=== PATIENT | male | born 1970 | race Caucasian/White ===

== ENCOUNTER 2021-12-24 11:21 | Emergency (ER) | payer OTHER, MEDICAID, SELFPAY ==
[2021-12-24 11:39] VITALS: BP 155/87; PULSE 99; RESP 16; O2SAT 99; BMI 25.4
--- NOTE | 2021-12-24 12:44 | DI.CT.S_ITS ---
PROCEDURE: CT ORBIT BI W CON INDICATIONS: left eye infection TECHNIQUE: After the administration of intravenous contrast, 2.5 mm axial images acquired through the orbits, with coronal and sagittal reformats. For radiation dose reduction, the following was used: automated exposure control, adjustment of mA and/or kV according to patient size. COMPARISON: None. FINDINGS: Image quality: Excellent. Orbits: Generalized left periorbital soft tissue swelling can be seen, with generalized enhancement. No focal fluid collections are seen to suggest abscess. No postseptal involvement can be seen. Globes are symmetrical. The optic nerves are normal in size and enhancement. No retrobulbar masses or fat abnormalities. The extra-ocular muscles are normal and symmetrical in appearance. Lacrimal glands are normal. Optic chiasm is normal. Intracranial: The pituitary gland is normal, without sellar or suprasellar masses. Visualized cerebral hemispheres, brainstem, and spinal cord appear normal. Bones and sinuses: Visualized calvarium and facial bones appear intact. Visualized sinuses and mastoids are clear. The ostiomeatal complexes are constitutionally narrowed, with bilateral Zoran cells. There is moderate leftward nasal septal deviation. IMPRESSION: Left periorbital cellulitis, without soft tissue abscess seen. No post septal involvement is detected. Incidental note is made of: Constitutionally narrowed ostiomeatal complexes Moderate leftward nasal septal deviation Dictated by: Theo Browne M.D. on 12/24/2021 at 12:41 Approved by: Theo Browne M.D. on 12/24/2021 at 12:44
[2021-12-24] MEDS: OXYCODONE/ACETAMINOPHEN 5/325 TABLET 1 TAB PO (13:09)
[2021-12-24 13:11] LABS: Add Manual Diff / Slide Review NO; Basophils Absolute Auto 100 /uL (0-100); Basophils Percent Auto 0.7 % (0-2); Eosinophils Absolute Auto 200 /uL (0-450); Eosinophils Percent Auto 1.5 % (2-4); Hematocrit 46.1 % (41-53); Hemoglobin 15.6 g/dL (13.5-17.5); Lymphocytes Absolute Auto 1100 /uL (1100-4500); Mean Corpuscular HGB Conc 33.9 % (30-36); Mean Corpuscular Hemoglobin 29.6 PG (26-34); Mean Corpuscular Volume 87.2 fL (80-100); Monocytes Absolute Auto 700 /uL (0-900); Neutrophils Absolute Auto 8500 /uL (1500-7000); Neutrophils Percent Auto 80.8 % (50-75); Platelet Count 223 X10^3/uL (150-400); Red Blood Cell Count 5.28 X10^6/uL (4.5-5.9); Red Cell Distribution Width 13.7 % (11.6-14.8); White Blood Cell Count 10.5 X10^3/uL (4.5-11.0)
--- NOTE | 2021-12-24 13:11 | ED_ITS ---
HPI - Eye Problem <YONATAN Candelaria - Last Filed: 12/24/21 16:11> General Chief complaint: Eye Problems Stated complaint: left eye swollen at [facility] yesterday, now worse Time Seen by Provider: 12/24/21 12:34 Source: patient Mode of arrival: Ambulatory History of Present Illness HPI Narrative: This is a 51-year-old male who presents to the emergency department with left eye redness, swelling, white discharge with complaint left arm pain and worsening infection. Patient states that yesterday he woke with left eye irritation, mild swelling, he went to a walk-in clinic, was prescribed erythromycin ointment, was using this but states that overnight it got a lot worse. He states that he has left eye pain, his eyelids are swollen shut, he is able to open them if he uses his finger but unable to open them without manual assistance. He endorses having a lot of white/yellow discharge from his left eye. He denies any eye trauma, states that he does not wear any contacts, he has not had any exposures to gonorrhea or chlamydia recently. He denies any history of skin infections or eye infections in the past. He denies being on any pain medicine, he denies taking oral antibiotics. He denies any fever, fatigue, nausea, or symptoms of illness. He denies any neck pain, states that the white part of his eye is red, he is able to move his eye but states it is painful with movement. Related Data Home Medications Medication Instructions Recorded Confirmed Viagra PO 12/23/21 12/23/21 wellbutrin PO 12/23/21 12/23/21 Previous Rx's Medication Instructions Recorded clindamycin HCl 150 mg capsule 150 mg PO TID 10 Days #30 cap 12/24/21 clindamycin HCl 300 mg capsule 300 mg PO TID 10 Days #30 cap 12/24/21 moxifloxacin 0.5 % eye drops 1 drp EYE-LEFT TID 7 Days ml 12/24/21 oxycodone-acetaminophen 2.5 mg-325 2 tab PO Q8H PRN 5 Days #20 tab 12/24/21 mg tablet Allergies Allergy/AdvReac Type Severity Reaction Status Date / Time No Known Drug Allergies Allergy Unverified 12/23/21 12:27 Review of Systems <YONATAN Candelaria - Last Filed: 12/24/21 16:11> Review of Systems Narrative: General: denies fever, chills, malaise, sweats, fatigue Head/Neck: denies headache, neck pain, dizziness Eyes: denies visual changes, endorses left eye pain, redness and swelling to upper and lower eyelids, swelling within orbital rim, denies any swelling adjacent to his nose, denies any other facial pain or swelling, endorses scleral injection Cardio: denies chest pain, palpitations, edema Respiratory: denies dyspnea, cough, orthopnea GI: denies abdominal pain, nausea, vomiting, or diarrhea MSK: denies joint pain, muscle weakness Skin: denies rash, itching, skin lesions or other, denies any recent dental infection or work, or any recent facial trauma/surgery. Neuro: denies numbness, tingling Patient History <KENTRELL CandelariaP - Last Filed: 12/24/21 16:11> Social History Smoking Status: Current every day smoker Smoking Status: Current every day smoker tobacco type: cigarettes alcohol intake frequency: holidays/special occasions only Substance Use Type: marijuana Exam <KENTRELL CandelariaP - Last Filed: 12/24/21 16:11> Narrative Exam Narrative: Independently reviewed vitals signs and nursing notes. General: cooperative, comfortable, in no acute distress, well groomed Head: atraumatic, symmetrical facial expressions Neck: supple Eyes: Pupils equal round and reactive, EOMI, left eye with beefy red scleral injection, large amount of white/yellow discharge coming from the conjunctivae, edematous conjunctiva, edema to the upper and lower eyelids with erythema, isolated to the orbital rim, no pain with palpation outside of the orbital rim, no EOM deficit on the left, patient endorses pain with eye movement, vision intact through all lang, gram stain and culture obtained Fluorescein exam: Without any staining over cornea, no signs of corneal abrasion or ulceration Nose: nares patent, no rhinorrhea Mouth/Throat: moist mucus membranes Cardiovascular: regular rate and rhythm, no peripheral edema, warm extremities Respiratory: normal effort, able to speak in complete sentences, no audible wheezing, stridor, or rales. No retractions or tachypnea. MSK: moves all extremities, neurovascularly intact, no weakness, normal tone Skin: brisk capillary refill, no rash, erythema and edema to left upper and lower eyelids, cellulitic appearing, only within orbital rim, no facial swelling or erythema, no tenderness along nares Neuro: normal speech and cognition, A&O x3 Psych: mental status is grossly normal, congruent mood, normal affect, pleasant and cooperative Initial Vital Signs Initial Vital Signs: Vital Signs Pulse Rate 99 H 12/24/21 11:39 Respiratory Rate 16 12/24/21 11:39 Blood Pressure 155/87 H 12/24/21 11:39 Pulse Oximetry 99 12/24/21 11:39 <Ronnie Mars DO - Last Filed: 12/24/21 16:42> Initial Vital Signs Initial Vital Signs: Vital Signs Pulse Rate 99 H 12/24/21 11:39 Respiratory Rate 16 12/24/21 11:39 Blood Pressure 155/87 H 12/24/21 11:39 Pulse Oximetry 99 12/24/21 11:39 Course <YONATAN Candelaria - Last Filed: 12/24/21 16:11> Orders Ordered: ED Orders 12/24/21 12:40 Eye culture Stat 12/24/21 12:44 CT orbit BI w con Stat Blood Culture Stat 12/24/21 13:04 CBC Auto Diff [Complete Blood Count AUTO DIFF] Stat CMP [Comprehensive Metabolic Panel] Stat Discontinued Medications Fluorescein Sodium (Fluorescein 1 Mg Strip) 1 mg EYE-LEFT NOW ONE Stop: 12/24/21 13:16 Last Admin: 12/24/21 13:28 Dose: 1 mg Documented by: SUSU Clindamycin Phosphate (Cleocin) 600 mg in 50 mls @ 50 mls/hr IV NOW ONE Stop: 12/24/21 14:29 Last Infusion: 12/24/21 14:42 Dose: 0 mls/hr Documented by: Admin: 12/24/21 13:38 Dose: 50 mls/hr Documented by: SUSU Oxycodone/Acetaminophen (Oxycodone/Acetaminophen 5/325 Tablet) 1 tab PO NOW ONE Stop: 12/24/21 12:53 Last Admin: 12/24/21 13:09 Dose: 1 tab Documented by: SUSU Proparacaine HCl (Proparacaine 0.5% Ophth Nicole) 1 drops EYE-LEFT NOW ONE Stop: 12/24/21 13:16 Last Admin: 12/24/21 13:25 Dose: 1 drop Documented by: SUSU Vital Signs Vital signs: Vital Signs - 8 hr 12/24/21 11:39 12/24/21 14:30 Temperature 98 F Pulse Rate 99 H 78 Respiratory Rate 16 18 Blood Pressure 155/87 H 160/90 H Pulse Oximetry 99 98 <Ronnie Mars DO - Last Filed: 12/24/21 16:42> Orders Ordered: ED Orders 12/24/21 12:40 Eye culture Stat 12/24/21 12:44 CT orbit BI w con Stat Blood Culture Stat 12/24/21 13:04 CBC Auto Diff [Complete Blood Count AUTO DIFF] Stat CMP [Comprehensive Metabolic Panel] Stat Discontinued Medications Fluorescein Sodium (Fluorescein 1 Mg Strip) 1 mg EYE-LEFT NOW ONE Stop: 12/24/21 13:16 Last Admin: 12/24/21 13:28 Dose: 1 mg Documented by: SUSU Clindamycin Phosphate (Cleocin) 600 mg in 50 mls @ 50 mls/hr IV NOW ONE Stop: 12/24/21 14:29 Last Infusion: 12/24/21 14:42 Dose: 0 mls/hr Documented by: Admin: 12/24/21 13:38 Dose: 50 mls/hr Documented by: SUSU Oxycodone/Acetaminophen (Oxycodone/Acetaminophen 5/325 Tablet) 1 tab PO NOW ONE Stop: 12/24/21 12:53 Last Admin: 12/24/21 13:09 Dose: 1 tab Documented by: SUSU Proparacaine HCl (Proparacaine 0.5% Ophth Nicole) 1 drops EYE-LEFT NOW ONE Stop: 12/24/21 13:16 Last Admin: 12/24/21 13:25 Dose: 1 drop Documented by: SUSU Vital Signs Vital signs: Vital Signs - 8 hr 12/24/21 11:39 12/24/21 14:30 Temperature 98 F Pulse Rate 99 H 78 Respiratory Rate 16 18 Blood Pressure 155/87 H 160/90 H Pulse Oximetry 99 98 MDM - Eye Problem <YONATAN Candelaria - Last Filed: 12/24/21 16:11> Lab Data Result diagrams: 12/24/21 13:04 12/24/21 13:04 Labs: Lab Results 12/24/21 12/24/21 Range/Units 13:04 13:04 WBC 10.5 (4.5-11.0) X10^3/uL RBC 5.28 (4.5-5.9) X10^6/uL Hgb 15.6 (13.5-17.5) g/dL Hct 46.1 (41-53) % MCV 87.2 (80-100) fL MCH 29.6 (26-34) PG MCHC 33.9 (30-36) % RDW 13.7 (11.6-14.8) % Plt Count 223 (150-400) X10^3/uL Neut % (Auto) 80.8 H (50-75) % Lymph % (Auto) 10.0 L (25-40) % [place] % (Auto) 7.0 (3-14) % Eos % (Auto) 1.5 L (2-4) % Baso % (Auto) 0.7 (0-2) % Neut # (Auto) 8500 H (0557-8565) /uL Lymph # (Auto) 1100 (5807-6252) /uL [place] # (Auto) 700 (0-900) /uL Eos # (Auto) 200 (0-450) /uL Baso # (Auto) 100 (0-100) /uL Sodium 140 (137-145) mmol/L Potassium 4.1 (3.4-5.1) mmol/L Chloride 106 (98-107) mmol/L Carbon Dioxide 30 (22-32) mmol/L BUN 21 H (9-20) mg/dL Creatinine 0.95 (0.66-1.25) mg/dL Estimated GFR > 60 (>60) mL/min BUN/Creatinine Ratio 22.1 H (6-22) Glucose 109 H (70-100) mg/dL Calcium 9.1 (8.4-10.2) mg/dL Total Bilirubin 0.3 (0.2-1.3) mg/dL AST 28 (17-59) IU/L ALT 25 (<50) IU/L Alkaline Phosphatase 67 (38-126) U/L Total Protein 7.3 (6.3-8.2) g/dL Albumin 4.2 (3.5-5.0) g/dL Globulin 3.1 (1.7-4.1) g/dL Albumin/Globulin Ratio 1.4 (1.0-2.8) Imaging Data CT scan - head: Radiologist's Impression: PROCEDURE:? CT ORBIT BI W CON ? INDICATIONS:? left eye infection ? TECHNIQUE:? After the administration of intravenous contrast, 2.5 mm axial images acquired through the orbits, with coronal and sagittal reformats.? For radiation dose reduction, the following was used:? automated exposure control, adjustment of mA and/or kV according to patient size.? ? COMPARISON:? None. ? FINDINGS:? Image quality:? Excellent.? ? Orbits:? Generalized left periorbital soft tissue swelling can be seen, with generalized enhancement.? No focal fluid collections are seen to suggest abscess.? No postseptal involvement can be seen. ? Globes are symmetrical.? The optic nerves are normal in size and enhancement.? No retrobulbar masses or fat abnormalities.? The extra-ocular muscles are normal and symmetrical in appearance.? Lacrimal glands are normal.? Optic chiasm is n ormal.? ? Intracranial:? The pituitary gland is normal, without sellar or suprasellar masses.? Visualized cerebral hemispheres, brainstem, and spinal cord appear normal.? ? Bones and sinuses:? Visualized calvarium and facial bones appear intact.? Visualized sinuses and mastoids are clear.? The ostiomeatal complexes are constitutionally narrowed, with bilateral Zoran cells.? There is moderate leftward nasal septal deviation. ? ? ? IMPRESSION:? Left periorbital cellulitis, without soft tissue abscess seen. ? No post septal involvement is detected. ? ? ? Incidental note is made of: Constitutionally narrowed ostiomeatal complexes Moderate leftward nasal septal deviation ? Dictated by: Theo Browne M.D. on 12/24/2021 at 12:41 ? ? Approved by: Theo Browne M.D. on 12/24/2021 at 12:44 ? MDM Narrative Medical decision making narrative: This is a 51-year-old male without significant medical history who presents to the emergency department with left eyelid edema and erythema with a moderate amount of white discharge. Patient was seen in the walk-in clinic yesterday prescribed erythromycin ointment, he states he woke up with some left eye irritation yesterday, denies any foreign body or possibility of so. 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 Patient denies any other illness symptoms, denies fever, weakness, states that the swelling and redness of his left eye got significantly worse overnight and he was getting the ointment in his eye per his prescription and off times yesterday. He was unable to open his left eye without manual assistance, his sclera was beefy red he had eye pain with eye mov ement. Fluorescein exam did not show any corneal abrasion, he does have chemosis. Culture and Gram stain obtained, gram stain shows moderate wbc's without organism. CT and lab work obtained for concern about orbital cellulitis versus preseptal cellulitis. CT orbits show left cellulitis without soft tissue abscess, no postseptal involvement detected. Patient did not have any vision changes, he was treated with 600 mg of IV clindamycin, prescribed 450 mg of clindamycin t.i.d. x10 days. He was given a referral to Dr. Nita herrera to call and schedule an appointment for follow-up. Patient understands to return to the emergency department for any new worsening symptoms, he did not a toxic appearance, no leukocytosis but he does have a left shift, all other lab findings without significance. Patient is appropriate and amenable to discharge home. Vital signs are stable on repeat examination is unremarkable. Patient has been informed of results. Patient has been given strict return to ER precautions for any new or worsening symptoms. Patient understands to follow up closely with outpatient providers as instructed. Patient understands plan and agrees to discharge home. All questions and concerns answered at this time. <Ronnie Mars, - Last Filed: 12/24/21 16:42> Lab Data Labs: Lab Results 12/24/21 12/24/21 Range/Units 13:04 13:04 WBC 10.5 (4.5-11.0) X10^3/uL RBC 5.28 (4.5-5.9) X10^6/uL Hgb 15.6 (13.5-17.5) g/dL Hct 46.1 (41-53) % MCV 87.2 (80-100) fL MCH 29.6 (26-34) PG MCHC 33.9 (30-36) % RDW 13.7 (11.6-14.8) % Plt Count 223 (150-400) X10^3/uL Neut % (Auto) 80.8 H (50-75) % Lymph % (Auto) 10.0 L (25-40) % [place] % (Auto) 7.0 (3-14) % Eos % (Auto) 1.5 L (2-4) % Baso % (Auto) 0.7 (0-2) % Neut # (Auto) 8500 H (5118-3704) /uL Lymph # (Auto) 1100 (4037-2853) /uL [place] # (Auto) 700 (0-900) /uL Eos # (Auto) 200 (0-450) /uL Baso # (Auto) 100 (0-100) /uL Sodium 140 (137-145) mmol/L Potassium 4.1 (3.4-5.1) mmol/L Chloride 106 (98-107) mmol/L Carbon Dioxide 30 (22-32) mmol/L BUN 21 H (9-20) mg/dL Creatinine 0.95 (0.66-1.25) mg/dL Estimated GFR > 60 (>60) mL/min BUN/Creatinine Ratio 22.1 H (6-22) Glucose 109 H (70-100) mg/dL Calcium 9.1 (8.4-10.2) mg/dL Total Bilirubin 0.3 (0.2-1.3) mg/dL AST 28 (17-59) IU/L ALT 25 (<50) IU/L Alkaline Phosphatase 67 (38-126) U/L Total Protein 7.3 (6.3-8.2) g/dL Albumin 4.2 (3.5-5.0) g/dL Globulin 3.1 (1.7-4.1) g/dL Albumin/Globulin Ratio 1.4 (1.0-2.8) Discharge Plan Departure Patient Disposition: Home Clinical Impression: Periorbital cellulitis of left eye Instructions: Orbital Cellulitis Activity Restrictions/Additional Instructions: *You have been diagnosed with periorbital cellulitis. This is an infection of the tissue around your eye including her eyelids but does not extend into the deep spaces behind her eye. Please take 450 mg of clindamycin 3 times a day for the next 10 days. It will be one 300 mg capsule and one 150 mg capsule for each dose. Please take oxycodone two tabs every 6-8 hours as needed for pain. You may take ibuprofen in addition to this if your stomach can handle it. Please see if moxifloxacin is available at [facility] otherwise drop it off at [facility] or other pharmacy here in [facility]. Sorry about that. It is not necessary to have it because you are on this antibiotic however it might help the eye swelling start to go down sooner. You can use cool compresses, please do not use any contacts, put anything into your eye other than regular saline if you do, you may discontinue the erythromycin ointment you are able to find the moxifloxacin drops. Please try and make an appointment for follow-up with Dr. Herrera, her information as below, there is a phone number listed below this to establish care with a primary care provider if you also need one of those. It was nice to meet you, the luck with your eye. *What to do: *Please continue to take your regular medications as directed. [x ] New medication prescriptions sent to your pharmacy: [ [facility]] [ ] New medication written as a paper prescription [ ] No new medications given *Please follow up with your primary care provider in 2-3 days, call for an appointment. Let them know you were seen in the Emergency Department and that we asked that you be seen for follow-up. We will electronically transmit a record of today's note if your PCP is in our system *If you do not have a primary care provider please contact [phone] to establish care with one of the [facility] primary care providers. *Return to Emergency Department if you should have any new, worsening or concerning symptoms, such as [fever greater than 101F, chills, worsening pain, persistent vomiting or other bothersome symptoms] Prescriptions: New clindamycin HCl 300 mg capsule 300 mg PO TID 10 Days Qty: 30 0RF clindamycin HCl 150 mg capsule 150 mg PO TID 10 Days Qty: 30 0RF oxycodone-acetaminophen 2.5-325 mg tablet 2 tab PO Q8H PRN (Reason: pain) 5 Days Qty: 20 0RF moxifloxacin 0.5 % drops 1 drp EYE-LEFT TID 7 Days 0RF Discontinued erythromycin 5 mg/gram (0.5 %) ointment 0.5 inch EYE-LEFT QID 5 Days Qty: 1 0RF No Action wellbutrin PO 0RF Viagra PO 0RF Referrals: Nita Herrera MD [Physician] - As soon as possible Miscellaneous,MD Jared [Primary Care Provider] - Visit Report Forms: Patient Portal/API <Ronnie Mars DO - Last Filed: 12/24/21 16:42> [facility] Dr Mars Co-Sign Statement: I was available for consultation during this patient's emergency department visit. This chart is signed by myself for administrative purposes only. I did not have direct contact with this patient during this visit. They were seen independently by the [facility].
[2021-12-24] MEDS: PROPARACAINE 0.5% OPHTH SOL 1 DROPS EYE-LEFT (13:25)
[2021-12-24 13:28] LABS: Alanine Aminotransferase 25 IU/L (<50); Albumin 4.2 g/dL (3.5-5.0); Albumin Globulin Ratio 1.4 (1.0-2.8); Alkaline Phosphatase 67 U/L (38-126); Aspartate Aminotransferase 28 IU/L (17-59); BUN Creatinine Ratio 22.1 (6-22); Bilirubin Total 0.3 mg/dL (0.2-1.3); Blood Urea Nitrogen 21 mg/dL (9-20); Calcium 9.1 mg/dL (8.4-10.2); Carbon Dioxide 30 mmol/L (22-32); Chloride 106 mmol/L (98-107); Estimated Glomerular Filt Rate > 60 mL/min (>60); Globulin 3.1 g/dL (1.7-4.1); Glucose 109 mg/dL (70-100); HEMOLYSIS < 15 (0-50); Potassium 4.1 mmol/L (3.4-5.1); Sodium 140 mmol/L (137-145); Total Protein 7.3 g/dL (6.3-8.2)
[2021-12-24] MEDS: FLUORESCEIN 1 MG STRIP EYE-LEFT (13:28)
[2021-12-24] MEDS: CLINDAMYCIN 600 MG/50 ML PIGGYBACK 50 MG IV (13:38)
[2021-12-24 14:30] VITALS: BP 160/90; PULSE 78; RESP 18; TEMP 36.6; O2SAT 98
== END 2021-12-24 14:35 | disposition home or self-care (01) ==
PROVIDERS: Emergency Provider Nurse Practitioner Critical Care Medicine
DX: L03.213 Periorbital cellulitis (principal)
CPT/HCPCS: 36415; 70481; 80053; 85025; 87040; 87070; 87077; 87205; 96365; 99284; Q9967

== ENCOUNTER 2021-12-27 20:21 | Emergency (ER) | payer OTHER, MEDICAID, SELFPAY ==
[2021-12-27 21:00] VITALS: BP 162/90; PULSE 87; RESP 18; TEMP 36.1; O2SAT 98; BMI 25.4
--- NOTE | 2021-12-27 21:17 | ED_ITS ---
HPI - Eye Problem General Chief complaint: Eye Problems Stated complaint: LEFT EYE INFECTION Time Seen by Provider: 12/27/21 21:05 Source: patient Mode of arrival: Ambulatory History of Present Illness HPI Narrative: 51-year-old male smoker with noncontributory medical history returns due to a call back based on cultures. He had been seen and evaluated a few days ago with a chief complaint of left eye discharge along with pain, redness and swelling of his upper and lower lid. He had an extensive workup including labs and even a CT of the orbit along with cultures that suggested a periorbital cellulitis. He was placed on oral antibiotics and drops for typical coverage. He denies any visual change once his lid is pried open but states it is blurry without external effort. He denies systemic findings such as fever, chills nor nausea or vomiting. He has been taking the medications as directed. Culture came back suggesting dysuria gonorrhea and he was encouraged to come back as he would need an alternate antibiotic regimen Related Data Home Medications Medication Instructions Recorded Confirmed Viagra PO 12/23/21 12/23/21 wellbutrin PO 12/23/21 12/23/21 Previous Rx's Medication Instructions Recorded clindamycin HCl 150 mg capsule 150 mg PO TID 10 Days #30 cap 12/24/21 clindamycin HCl 300 mg capsule 300 mg PO TID 10 Days #30 cap 12/24/21 moxifloxacin 0.5 % eye drops 1 drp EYE-LEFT TID 7 Days ml 12/24/21 oxycodone-acetaminophen 2.5 mg-325 2 tab PO Q8H PRN 5 Days #20 tab 12/24/21 mg tablet Allergies Allergy/AdvReac Type Severity Reaction Status Date / Time No Known Drug Allergies Allergy Unverified 12/23/21 12:27 Review of Systems Review of Systems Narrative: GENERAL: See HPI HEENT: See HPI RESPIRATORY: Denies dyspnea, cough, wheezing, hemoptysis, sputum. CARDIOVASCULAR: Denies chest pain, palpitations, orthopnea, edema, GASTROINTESTINAL: Denies nausea, vomiting, abdominal pain, diarrhea, constipation, melena. : Denies dysuria, frequency, incontinence, hematuria, urinary retention. MUSCULOSKELETAL: denies weakness, joint pain, or bony pain SKIN: See HPI NEUROLOGIC: Denies weakness, headache, numbness, change in speech, confusion, seizures, incoordination. PSYCHIATRIC: No concerning psychosocial issues. 12 point review of systems is negative except for those stated above Patient History Social History Smoking Status: Current every day smoker Smoking Status: Current every day smoker tobacco type: cigarettes alcohol intake frequency: holidays/special occasions only Substance Use Type: marijuana Exam Narrative Exam Narrative: GEN: AOx3 and in mild distress EYES: Minimal upper and lower erythema and edema consistent with known preseptal cellulitis, no induration or fluctuance to suggest abscess. When lids retracted there is moderate scleral injection and purulent discharge, patient's vision is unaffected. CHEST: Lungs are clear to auscultation bilaterally and free of wheezes, rales, or rhonchi. Heart rate is regular rhythm, there are no murmurs, clicks, rubs, or gallops. There is no chest wall tenderness. ABD: Abdomen is soft and nontender. There is no guarding or rebound. Bowel sounds are normal in all 4 quadrants. There is no mass or organomegaly. EXT: Full painless ROM of all extremities with no loss of sensation or strength. SKIN: Warm, pink, and dry. No erythema or rash Initial Vital Signs Initial Vital Signs: Vital Signs Temperature 97 F L 12/27/21 21:00 Pulse Rate 87 12/27/21 21:00 Respiratory Rate 18 12/27/21 21:00 Blood Pressure 162/90 H 12/27/21 21:00 Pulse Oximetry 98 12/27/21 21:00 Course Orders Ordered: Discontinued Medications Hydrocodone Bitart/Acetaminophen (Hydrocodone/Acet 5/325 Prepack) 1 bottle [facility] ONE Stop: 12/27/21 21:25 Last Admin: 12/27/21 21:34 Dose: 1 bottle Documented by: LETITIA Ceftriaxone Sodium (Ceftriaxone 2,000 Mg Vial) 1,000 mg IM NOW ONE Stop: 12/27/21 21:21 Last Admin: 12/27/21 21:33 Dose: 1,000 mg Documented by: LETITIA Vital Signs Vital signs: Vital Signs - 8 hr 12/27/21 21:00 Temperature 97 F L Pulse Rate 87 Respiratory Rate 18 Blood Pressure 162/90 H Pulse Oximetry 98 MDM - Eye Problem MDM Narrative Medical decision making narrative: Patient called back due to culture noting Neisseria gonorrhea conjunctivitis, he was given Rocephin 1 g IM and encouraged to continue the other antibiotics as previously described. He was given contact information for local ophthalmology and encouraged to follow up closely. Return precautions given and questions answered to his apparent satisfaction Discharge Plan Departure Patient Disposition: Home Clinical Impression: Periorbital cellulitis of left eye, Gonorrhea with local complication Activity Restrictions/Additional Instructions: *You have been diagnosed with [left eye periorbital cellulitis with gonococcal infection. As we discussed the only change needs to be addition of the shot your given today, please continue taking the drops and other medications you have been given on the prior visit *What to do: *Please continue to take your regular medications as directed. [ ] New medication prescriptions sent to your pharmacy: [ ] [ ] New medication written as a paper prescription [ ] No new medications given *Please follow up with Dr. Herrera or Dr. Johnson at [facility], call for an appointment. Let them know you were seen in the Emergency Department and that we ask that you be seen in follow up. We will electronically transmit a record of today's note *Return to Emergency Department if you should have any new, worsening or concerning symptoms, such as [fever greater than 101 F, shaking chills, worsening pain, persistent vomiting or other bothersome symptoms] Prescriptions: No Action wellbutrin PO 0RF Viagra PO 0RF clindamycin HCl 300 mg capsule 300 mg PO TID 10 Days Qty: 30 0RF clindamycin HCl 150 mg capsule 150 mg PO TID 10 Days Qty: 30 0RF oxycodone-acetaminophen 2.5-325 mg tablet 2 tab PO Q8H PRN (Reason: pain) 5 Days Qty: 20 0RF moxifloxacin 0.5 % drops 1 drp EYE-LEFT TID 7 Days 0RF Referrals: Nita Herrera MD [Physician] - Miscellaneous,MD Jared [Primary Care Provider] - Visit Report Forms: Patient Portal/API
[2021-12-27] MEDS: cefTRIAXone 2,000 MG VIAL 1000 MG IM (21:33)
[2021-12-27] MEDS: HYDROCODONE/ACET 5/325 PREPACK 1 BOTTLE MISC (21:34)
== END 2021-12-27 21:57 | disposition home or self-care (01) ==
PROVIDERS: Emergency Provider Emergency Medicine
DX: L03.213 Periorbital cellulitis (principal); A54 Gonococcal infection
CPT/HCPCS: 96372; 99283; J0696

== ENCOUNTER 2022-05-06 13:13 | Emergency (ER) | payer OTHER, MEDICAID, SELFPAY ==
[2022-05-06 13:18] VITALS: BP 155/93; PULSE 92; RESP 16; TEMP 36.7; O2SAT 100; BMI 25.7
[2022-05-06 13:31] VITALS: PULSE 92; O2SAT 100
[2022-05-06 13:32] VITALS: BP 164/103; PULSE 92; O2SAT 100
[2022-05-06 13:33] VITALS: BP 153/97; PULSE 92; O2SAT 100
--- NOTE | 2022-05-06 13:57 | ED_ITS ---
HPI - Back Pain/Injury General Chief Complaint: Back Pain/Injury Stated Complaint: Low back pain, hx of kidney stones Time Seen by Provider: 05/06/22 13:49 Source: patient Mode of arrival: Ambulatory History of Present Illness HPI Narrative: Patient is a 51-year-old male here for evaluation of left-sided back pain/left flank pain. He states the symptoms started 2 days ago. Fairly sudden onset. No fevers. No urinary symptoms. No change in bowel habits. He has had a kidney stone in the past and this feels similar to that. No skin rashes. Did take some Tylenol and ibuprofen prior to arrival which has improved his symptoms somewhat. Pain is in a band in his lower back and does get somewhat worse with movement. Not worse with palpation. Related Data Home Medications Medication Instructions Recorded Confirmed Viagra PO 12/23/21 12/23/21 wellbutrin PO 12/23/21 12/23/21 Previous Rx's Medication Instructions Recorded cyclobenzaprine 10 mg tablet 10 mg PO TID PRN muscle spasm #12 05/06/22 tabs hydrocodone 5 mg-acetaminophen 325 1 tab PO Q4-6H PRN pain #10 tabs 05/06/22 mg tablet Allergies Allergy/AdvReac Type Severity Reaction Status Date / Time No Known Drug Allergies Allergy Unverified 12/23/21 12:27 Review of Systems Review of Systems ROS Unobtainable: All systems reviewed & are unremarkable except as noted in HPI and below Patient History Social History Smoking Status: Current every day smoker Smoking Status: Current every day smoker tobacco type: cigarettes alcohol intake frequency: holidays/special occasions only Substance Use Type: marijuana Exam Initial Vital Signs Initial Vital Signs: Vital Signs Temperature 98.1 F 05/06/22 13:18 Pulse Rate 92 H 05/06/22 13:18 Respiratory Rate 16 05/06/22 13:18 Blood Pressure 155/93 H 05/06/22 13:18 Pulse Oximetry 100 05/06/22 13:18 Oxygen Delivery Method 05/06/22 13:18 HENMT Head: normal to inspection and normocephalic Resp Effort & Inspection: normal respiratory effort Cardio Rate: regular rate GI Palpation: soft, No firm, No guarding and No tender Back/Spine/Pelvis Back: No CVA tenderness Skin General: no rashes or lesions noted Neuro General: patient alert, patient awake and patient oriented x3 Extrem General: normal to inspection and capillary refill normal Psych Appearance: grossly normal and well kempt Course Orders Ordered: ED Orders 05/06/22 13:58 CT kidney ureter bladder (KUB) Stat 05/06/22 14:53 Basic Metabolic Panel Stat Complete Blood Count AUTO DIFF Stat Vital Signs Vital signs: Vital Signs - 8 hr 05/06/22 13:18 05/06/22 13:31 05/06/22 13:32 Temperature 98.1 F Pulse Rate 92 H 92 H Respiratory Rate 16 Blood Pressure 155/93 H 164/103 H Pulse Oximetry 100 100 Oxygen Delivery Method Room Air Room Air 05/06/22 13:32 05/06/22 13:33 05/06/22 13:33 Temperature Pulse Rate 92 H 92 H Respiratory Rate Blood Pressure 153/97 H Pulse Oximetry 100 100 Oxygen Delivery Method Room Air Room Air MDM - Back Pain/Injury Lab Data Attestation: I reviewed the patient's lab results. Result diagrams: 05/06/22 14:53 05/06/22 14:53 Labs: Lab Results 05/06/22 05/06/22 Range/Units 14:53 14:53 WBC 5.6 (4.5-11.0) X10^3/uL RBC 4.99 (4.5-5.9) X10^6/uL Hgb 14.9 (13.5-17.5) g/dL Hct 43.7 (41-53) % MCV 87.6 (80-100) fL MCH 29.9 (26-34) PG MCHC 34.1 (30-36) % RDW 13.3 (11.6-14.8) % Plt Count 196 (150-400) X10^3/uL Neut % (Auto) 67.1 (50-75) % Lymph % (Auto) 20.7 L (25-40) % [place] % (Auto) 9.7 (3-14) % Eos % (Auto) 1.3 L (2-4) % Baso % (Auto) 1.2 (0-2) % Neut # (Auto) 3800 (9120-6197) /uL Lymph # (Auto) 1200 (6406-0895) /uL [place]ke # (Auto) 500 (0-900) /uL Eos # (Auto) 100 (0-450) /uL Baso # (Auto) 100 (0-100) /uL Sodium 136 L (137-145) mmol/L Potassium 4.2 (3.4-5.1) mmol/L Chloride 103 (98-107) mmol/L Carbon Dioxide 24 (22-32) mmol/L BUN 15 (9-20) mg/dL Creatinine 0.87 (0.66-1.25) mg/dL Estimated GFR > 60 (>60) mL/min BUN/Creatinine Ratio 17.2 (6-22) Glucose 91 (70-100) mg/dL Calcium 8.6 (8.4-10.2) mg/dL Urine Dip Bedside Urine Glucose Negative Bedside Urine Bilirubin - Negative Bedside Urine Ketone - Negative Urine Specific [place] 1.015 Bedside Urine Occult Blood - Negative Bedside Urine Protein - Negative Bedside Urine Urobilinogen - Negative Bedside Urine Nitrite - Negative Bedside Urine Leukocytes - Negative Esterase Imaging Data CT scan - abdomen/pelvis: Radiologist's Impression: [address] [id number] [address] Scan Report Signed Patient: Mike Pereira MR#: [id number] : 1970 Acct:[id number] Age/Sex: 51 / M Date of Service: 05/06/22 Loc: Accession Number: [id number] ?? Procedure: CT kidney ureter bladder (KUB) Ordering Provider: Ronnie Mars D.O. PROCEDURE:? CT KIDNEY URETER BLADDER (KUB) ? INDICATIONS:? Eval for left-sided stone ? TECHNIQUE:? Axial sections were acquired from the lung bases to the pubic symphysis.? Coronal and sagittal reformats were performed.? For radiation dose reduction, the following was used: ?automated exposure control, adjustment of mA and/or kV according to patient size.? ? COMPARISON:? None. ? FINDINGS:? Image quality:? Good ? Lower chest:? Suspected basal scarring/atelectasis.? Partially visualized electrode lead in the heart.? Nonspecific mild distal esophageal wall thickening. ? Solid organs:? Probable focal fat subjacent to the anterior hepatic capsule.? Solid organs are not well evaluated on noncontrast imaging.? Subcentimeter lesions are too small to characterize.? Gallbladder is unremarkable.? No biliary ductal dilation.? Pancreas, spleen, and adrenals are unremarkable.? ? Normal right kidney and ureter.? 1 millimeter left lower pole nonobstructing calculus.? No left hydronephrosis.? No bladder stone.? ? Vessels and lymph nodes:? No abdominal aortic aneurysm.? Prominent, non-specific lymph nodes are present that are not enlarged by size criteria. ? Bowel and peritoneum:? Moderate colorectal stool burden.? No pathologic ascites. ? Body wall:? Tiny fat containing umbilical hernia. ? Pelvis:? Mildly enlarged prostate with calcifications, not well evaluated.? Bladder is unremarkable. ? Bones:? No acute or suspicious osseous abnormality. ? ? ? IMPRESSION:? No hydronephrosis bilaterally.? There is a 1 millimeter left lower pole nonobstructing calculus.? No significant inflammatory changes in the genitourinary system.? No radiopaque bladder stone.? Other incidental findings as noted above. ? Dictated by: Clarke Elliott M.D. on 05/06/2022 at 14:29 ? ? Approved by: Clarke Elliott M.D. on 05/06/2022 at 14:34? MDM Narrative Medical decision making narrative: CT scan shows no signs of kidney stone. His labs are unremarkable. No other surgical pathology. Urinalysis not consistent with urinary tract infection or pyelonephritis. I do suspect musculoskeletal. Will provide symptom treatment. I did discuss this with him. He was given return precautions follow-up instructions. He expressed understanding and agreement. Discharge Plan Departure Patient Disposition: Home Clinical Impression: Strain of lumbar region Instructions: DI for Low Back Pain Activity Restrictions/Additional Instructions: Recommend that you take all of your medications as directed. Contact your primary care doctor for follow-up. Return to the emergency department for any new or worsening symptoms. Prescriptions: New cyclobenzaprine 10 mg tablet 10 mg PO TID PRN (Reason: muscle spasm) Qty: 12 0RF hydrocodone-acetaminophen 5-325 mg tablet 1 tab PO Q4-6H PRN (Reason: pain) Qty: 10 0RF No Action wellbutrin PO Viagra PO
--- NOTE | 2022-05-06 13:58 | DI.CT.S_ITS ---
PROCEDURE: CT KIDNEY URETER BLADDER (KUB) INDICATIONS: Eval for left-sided stone TECHNIQUE: Axial sections were acquired from the lung bases to the pubic symphysis. Coronal and sagittal reformats were performed. For radiation dose reduction, the following was used: automated exposure control, adjustment of mA and/or kV according to patient size. COMPARISON: None. FINDINGS: Image quality: Good Lower chest: Suspected basal scarring/atelectasis. Partially visualized electrode lead in the heart. Nonspecific mild distal esophageal wall thickening. Solid organs: Probable focal fat subjacent to the anterior hepatic capsule. Solid organs are not well evaluated on noncontrast imaging. Subcentimeter lesions are too small to characterize. Gallbladder is unremarkable. No biliary ductal dilation. Pancreas, spleen, and adrenals are unremarkable. Normal right kidney and ureter. 1 millimeter left lower pole nonobstructing calculus. No left hydronephrosis. No bladder stone. Vessels and lymph nodes: No abdominal aortic aneurysm. Prominent, non-specific lymph nodes are present that are not enlarged by size criteria. Bowel and peritoneum: Moderate colorectal stool burden. No pathologic ascites. Body wall: Tiny fat containing umbilical hernia. Pelvis: Mildly enlarged prostate with calcifications, not well evaluated. Bladder is unremarkable. Bones: No acute or suspicious osseous abnormality. IMPRESSION: No hydronephrosis bilaterally. There is a 1 millimeter left lower pole nonobstructing calculus. No significant inflammatory changes in the genitourinary system. No radiopaque bladder stone. Other incidental findings as noted above. Dictated by: Clarke Elliott M.D. on 05/06/2022 at 14:29 Approved by: Clarke Elliott M.D. on 05/06/2022 at 14:34
[2022-05-06 15:11] LABS: Add Manual Diff / Slide Review NO; Basophils Absolute Auto 100 /uL (0-100); Basophils Percent Auto 1.2 % (0-2); Eosinophils Absolute Auto 100 /uL (0-450); Eosinophils Percent Auto 1.3 % (2-4); Hematocrit 43.7 % (41-53); Hemoglobin 14.9 g/dL (13.5-17.5); Lymphocytes Absolute Auto 1200 /uL (1100-4500); Lymphocytes Percent Auto 20.7 % (25-40); Mean Corpuscular HGB Conc 34.1 % (30-36); Mean Corpuscular Hemoglobin 29.9 PG (26-34); Mean Corpuscular Volume 87.6 fL (80-100); Monocytes Absolute Auto 500 /uL (0-900); Monocytes Percent Auto 9.7 % (3-14); Neutrophils Absolute Auto 3800 /uL (1500-7000); Neutrophils Percent Auto 67.1 % (50-75); Platelet Count 196 X10^3/uL (150-400); Red Blood Cell Count 4.99 X10^6/uL (4.5-5.9); Red Cell Distribution Width 13.3 % (11.6-14.8); White Blood Cell Count 5.6 X10^3/uL (4.5-11.0)
[2022-05-06 15:14] LABS: BUN Creatinine Ratio 17.2 (6-22); Blood Urea Nitrogen 15 mg/dL (9-20); Calcium 8.6 mg/dL (8.4-10.2); Carbon Dioxide 24 mmol/L (22-32); Chloride 103 mmol/L (98-107); Estimated Glomerular Filt Rate > 60 mL/min (>60); Glucose 91 mg/dL (70-100); HEMOLYSIS 17 (0-50); Potassium 4.2 mmol/L (3.4-5.1); Sodium 136 mmol/L (137-145)
[2022-05-06] MEDS: HYDROCODONE/ACET 5/325 TABLET 1 TAB PO (16:28)
== END 2022-05-06 16:30 | disposition home or self-care (01) ==
PROVIDERS: Emergency Provider Emergency Medicine
DX: S39.012A Strain of muscle, fascia and tendon of lower back, initial encounter (principal)
CPT/HCPCS: 74176; 80048; 81003; 85025; 99284

== ENCOUNTER 2022-07-14 17:04 | Emergency (ER) | payer OTHER, MEDICAID, SELFPAY ==
[2022-07-14 17:09] VITALS: BP 139/89; PULSE 105; RESP 15; TEMP 37; O2SAT 97; BMI 24.4
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
[2022-07-14 17:53] VITALS: BP 141/84; PULSE 98; O2SAT 98
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
[2022-07-14 19:40] VITALS: BP 118/64; PULSE 62; RESP 14; TEMP 36.3; O2SAT 99
== END 2022-07-14 19:40 | disposition home or self-care (01) ==
PROVIDERS: Emergency Provider Registered Nurse
DX: S43.109A Unspecified dislocation of unspecified acromioclavicular joint, initial encounter (principal); V19.3XXA Pedal cyclist (driver) (passenger) injured in unspecified nontraffic accident, initial encounter
CPT/HCPCS: 73000; 99283; 99284

== ENCOUNTER → 2022-07-27 16:00 | Outpatient (CLI) | payer OTHER, MEDICAID, SELFPAY ==
[2022-07-27 16:40] LABS: Add Manual Diff / Slide Review NO; Basophils Absolute Auto 100 /uL (0-100); Basophils Percent Auto 1.1 % (0-2); Eosinophils Absolute Auto 200 /uL (0-450); Eosinophils Percent Auto 3.5 % (2-4); Hematocrit 45.2 % (41-53); Hemoglobin 15.1 g/dL (13.5-17.5); Lymphocytes Absolute Auto 1400 /uL (1100-4500); Lymphocytes Percent Auto 25.5 % (25-40); Mean Corpuscular HGB Conc 33.3 % (30-36); Mean Corpuscular Hemoglobin 29.6 PG (26-34); Mean Corpuscular Volume 88.9 fL (80-100); Monocytes Absolute Auto 500 /uL (0-900); Monocytes Percent Auto 9.5 % (3-14); Neutrophils Absolute Auto 3400 /uL (1500-7000); Neutrophils Percent Auto 60.4 % (50-75); Platelet Count 204 X10^3/uL (150-400); Red Blood Cell Count 5.09 X10^6/uL (4.5-5.9); Red Cell Distribution Width 13.1 % (11.6-14.8); White Blood Cell Count 5.6 X10^3/uL (4.5-11.0)
[2022-07-27 16:57] LABS: Hemoglobin A1C% w Est Avg Glu 5.7 % (4.0-6.0)
[2022-07-27 17:39] LABS: Alanine Aminotransferase 29 IU/L (<50); Albumin 4.1 g/dL (3.5-5.0); Albumin Globulin Ratio 1.4 (1.0-2.8); Alkaline Phosphatase 67 U/L (38-126); Aspartate Aminotransferase 27 IU/L (17-59); BUN Creatinine Ratio 18.1 (6-22); Bilirubin Total 0.4 mg/dL (0.2-1.3); Blood Urea Nitrogen 19 mg/dL (9-20); Carbon Dioxide 26 mmol/L (22-32); Chloride 102 mmol/L (98-107); Cholesterol 151 mg/dL (140-199); Estimated Glomerular Filt Rate > 60 mL/min (>60); Glucose 123 mg/dL (70-100); HDL Cholesterol 68 mg/dL (40-60); HEMOLYSIS < 15 (0-50); LDL Cholesterol Calculated 76 mg/dL (<100); Potassium 4.3 mmol/L (3.4-5.1); Sodium 137 mmol/L (137-145); Total Protein 7.1 g/dL (6.3-8.2); Triglycerides 37 mg/dL (35-150)
[2022-07-27 17:47] LABS: NT-proBNP (BNP-Adult 18+) 1190 pg/mL (<125)
== END ==
PROVIDERS: PCP Family Medicine; Referring Provider Family Medicine; Visit Provider Family Medicine
DX: F17.200 Nicotine dependence, unspecified, uncomplicated (principal); I50.9 Heart failure, unspecified
CPT/HCPCS: 36415; 80053; 80061; 83036; 83880; 85025

== ENCOUNTER 2023-03-07 02:05 | Emergency (ER) | payer OTHER, MEDICAID, SELFPAY ==
[2023-03-07] VITALS (10 sets, daily range): BP systolic 130–144; BP diastolic 87–104; PULSE 56–96; RESP 17–24; TEMP 36.8; O2SAT 92–100; BMI 25.7
--- NOTE | 2023-03-07 02:07 | ED_ITS ---
HPI - General Adult General Chief complaint: Shortness of Breath/Dyspnea Stated complaint: sob has a pacemaker Time Seen by Provider: 03/07/23 02:06 History of Present Illness HPI narrative: 52-year-old male daily smoker with history of hypertension, hyperlipidemia, CHF, pacemaker presents with chief complaint of shortness of breath over the course of the day. He states he is had no chest pain no fever or chills no runny nose, sore throat or cough. He just states that minimal exertion makes him very short of breath any feels fatigued and just worn out. He had a restless night asleep it admits that he just does not feel well. He denies any medication change or dietary change. 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 He states it is a [employer]. He denies recent travel or exposure to other ill persons. He does state that he has been drinking more fluid than he is supposed to lately since it has been so hot. About 6 months ago he saw his primary care provider and they altered the dosing of his Bumex a bit but he states that he has really been bad about taking it with any regularity lately and was admittedly trying to see if he can go without it. Related Data Home Medications Medication Instructions Recorded Confirmed aspirin 81 mg tablet,delayed 81 mg PO DAILY 07/27/22 07/27/22 release (Adult Aspirin Regimen) Previous Rx's Medication Instructions Recorded atorvastatin 40 mg tablet 40 mg PO DAILY #30 tabs 07/27/22 bumetanide 1 mg tablet 1 mg PO DAILY PRN swelling in legs 07/27/22 #30 tabs metoprolol tartrate 25 mg tablet 25 mg PO DAILY #30 tabs 07/27/22 sildenafil 100 mg tablet 100 mg PO DAILY PRN sexual 07/27/22 activity #30 tabs spironolactone 25 mg tablet 25 mg PO DAILY #30 tabs 07/27/22 Allergies Allergy/AdvReac Type Severity Reaction Status Date / Time No Known Drug Allergies Allergy Verified 07/27/22 15:44 Review of Systems Review of Systems Narrative: GENERAL: Denies chills, fatigue, malaise, fever, sweats. HEENT: Denies sinus pain, ear pain, sore throat, difficulty swallowing, dizziness. RESPIRATORY: See HPI CARDIOVASCULAR: Denies chest pain, palpitations, orthopnea, edema, GASTROINTESTINAL: Denies nausea, vomiting, abdominal pain, diarrhea, constipation, melena. : Denies dysuria, frequency, incontinence, hematuria, urinary retention. MUSCULOSKELETAL: denies weakness, joint pain, or bony pain SKIN: Denies rash, skin lesions, or other NEUROLOGIC: Denies weakness, headache, numbness, change in speech, confusion, seizures, incoordination. PSYCHIATRIC: No concerning psychosocial issues. 12 point review of systems is negative except for those stated above Patient History Medical History ADHD Anxiety CHF (congestive heart failure) Deep vein thrombosis Erectile dysfunction Kidney stones Low testosterone Poor eyesight Shoulder pain Tobacco dependence Surgical History Anesthesia History of cardiac defibrillator placement Pacemaker Family History Father Diabetes mellitus Mother Cancer Social History Smoking Status: Current every day smoker Smoking Status: Current every day smoker tobacco type: cigarettes alcohol intake frequency: holidays/special occasions only Substance Use Type: marijuana Exam Narrative Exam Narrative: GENERAL: [52] year old patient appears stated age. Well-developed patient, in mild distress. HEAD: Atraumatic. Normocephalic. EYES: Pupils equal round and reactive. Extraocular motions intact. No scleral icterus. No injection or drainage. ENT: Nose without bleeding, purulent drainage. Throat without erythema, tonsillar hypertrophy or exudate. Airway patent. NECK: Trachea midline. Non tender CARDIOVASCULAR: Regular rate and rhythm without murmurs, gallops, or rubs. RESPIRATORY: Faint crackles in bilateral bases, no significant work of breathing, no hypoxemia GASTROINTESTINAL: Abdomen soft, non-tender, nondistended. EXTREMITIES: 1+ pitting edema bilateral lower extremities BACK: Nontender without deformity or crepitance. No flank tenderness. NEURO: AOx3. SKIN: No rash or erythema of visible areas Initial Vital Signs Initial Vital Signs: Vital Signs Temperature 98.3 F 03/07/23 02:13 Pulse Rate 56 L 03/07/23 02:13 Respiratory Rate 18 03/07/23 02:13 Blood Pressure 134/99 H 03/07/23 02:13 Pulse Oximetry 100 03/07/23 02:13 Oxygen Delivery Method Room Air 03/07/23 02:13 Course Orders Ordered: ED Orders 03/07/23 02:16 XR chest 2V Stat EKG-12 Lead Stat 03/07/23 02:40 Complete Blood Count AUTO DIFF Stat Comprehensive Metabolic Panel Stat Lactate (Lactic Acid) Stat Lipase Stat Magnesium Stat NT-proBNP (BNP-Adult 18+) Stat Procalcitonin Stat Prothrombin Time INR Stat Troponin & CK Cardiac Panel Stat 03/07/23 03:06 Blood Culture Stat 03/07/23 05:00 Troponin & CK Cardiac Panel Stat Discontinued Medications Furosemide (Furosemide 40 Mg/4 Ml Vial) 40 mg IV NOW ONE Stop: 03/07/23 03:44 Last Admin: 03/07/23 04:01 Dose: 40 mg Documented By: SHEN Vital Signs Vital signs: Vital Signs - 8 hr 03/07/23 02:13 03/07/23 02:34 03/07/23 02:36 Temperature 98.3 F Pulse Rate 56 L 96 H 92 H Respiratory Rate 18 19 17 Blood Pressure 134/99 H Pulse Oximetry 100 98 98 Oxygen Delivery Method Room Air 03/07/23 02:36 03/07/23 03:00 03/07/23 03:00 Temperature Pulse Rate 94 H Respiratory Rate 23 Blood Pressure 142/104 H 143/87 H Pulse Oximetry 95 Oxygen Delivery Method 03/07/23 03:30 03/07/23 03:30 03/07/23 04:00 Temperature Pulse Rate 94 H 92 H Respiratory Rate 21 24 Blood Pressure 130/93 H Pulse Oximetry 92 95 Oxygen Delivery Method 03/07/23 04:30 03/07/23 04:31 03/07/23 04:31 Temperature Pulse Rate 92 H 92 H Respiratory Rate 20 21 Blood Pressure 144/102 H Pulse Oximetry 95 94 Oxygen Delivery Method 03/07/23 05:00 03/07/23 05:00 03/07/23 05:30 Temperature Pulse Rate 90 Respiratory Rate 23 Blood Pressure 137/92 H 140/104 H Pulse Oximetry 96 Oxygen Delivery Method 03/07/23 05:30 Temperature Pulse Rate 91 H Respiratory Rate 18 Blood Pressure Pulse Oximetry 95 Oxygen Delivery Method Medical Decision Making Lab Data 03/07/23 02:40 03/07/23 02:40 Labs: Lab Results 03/07/23 03/07/2303/07/23 Range/Units 02:40 02:40 02:40 WBC 8.7 (4.5-11.0) X10^3/uL RBC 5.55 (4.5-5.9) X10^6/uL Hgb 16.6 (13.5-17.5) g/dL Hct 49.7 (41-53) % MCV 89.6 (80-100) fL MCH 30.0 (26-34) PG MCHC 33.5 (30-36) % RDW 13.5 (11.6-14.8) % Plt Count 200 (150-400) X10^3/uL Neut % (Auto) 70.6 (50-75) % Lymph % (Auto) 16.6 L (25-40) % Spencer % (Auto) 6.1 (3-14) % Eos % (Auto) 2.0 (2-4) % Baso % (Auto) 4.7 H (0-2) % Neut # (Auto) 6200 (2419-0906) /uL Lymph # (Auto) 1400 (9609-3535) /uL Spencer # (Auto) 500 (0-900) /uL Eos # (Auto) 200 (0-450) /uL Baso # (Auto) 400 H (0-100) /uL PT 14.9 H (10.1-12.7) SECONDS INR 1.3 (0.9-1.3) Sodium 137 (137-145) mmol/L Potassium 4.7 (3.4-5.1) mmol/L Chloride 103 (98-107) mmol/L Carbon Dioxide 28 (22-32) mmol/L BUN 25 H (9-20) mg/dL Creatinine 1.25 (0.66-1.25) mg/dL Estimated GFR > 60 (>60) mL/min BUN/Creatinine Ratio 20.0 (6-22) Glucose 112 H (70-100) mg/dL Lactate (0.7-2.1) mmol/L Calcium 9.5 (8.4-10.2) mg/dL Magnesium 2.2 (1.6-2.3) mg/dL Total Bilirubin 0.8 (0.2-1.3) mg/dL AST 86 H (17-59) IU/L ALT 109 H (<50) IU/L Alkaline Phosphatase 90 (38-126) U/L Total Creatine Kinase 215 H (55-170) U/L Troponin I 0.063 H (0.01-0.034) ng/mL NT-Pro-B Natriuret Pep 7550 H (<125) pg/mL Total Protein 7.4 (6.3-8.2) g/dL Albumin 4.1 (3.5-5.0) g/dL Globulin 3.3 (1.7-4.1) g/dL Albumin/Globulin Ratio 1.2 (1.0-2.8) Lipase 49 (23-300) U/L Procalcitonin 0.11 (<0.5) ng/mL 03/07/23 03/07/23 Range/Units 02:40 05:00 WBC (4.5-11.0) X10^3/uL RBC (4.5-5.9) X10^6/uL Hgb (13.5-17.5) g/dL Hct (41-53) % MCV (80-100) fL MCH (26-34) PG MCHC (30-36) % RDW (11.6-14.8) % Plt Count (150-400) X10^3/uL Neut % (Auto) (50-75) % Lymph % (Auto) (25-40) % Spencer % (Auto) (3-14) % Eos % (Auto) (2-4) % Baso % (Auto) (0-2) % Neut # (Auto) (7096-8011) /uL Lymph # (Auto) (8341-7703) /uL Spencer # (Auto) (0-900) /uL Eos # (Auto) (0-450) /uL Baso # (Auto) (0-100) /uL PT (10.1-12.7) SECONDS INR (0.9-1.3) Sodium (137-145) mmol/L Potassium (3.4-5.1) mmol/L Chloride (98-107) mmol/L Carbon Dioxide (22-32) mmol/L BUN (9-20) mg/dL Creatinine (0.66-1.25) mg/dL Estimated GFR (>60) mL/min BUN/Creatinine Ratio (6-22) Glucose (70-100) mg/dL Lactate 1.0 (0.7-2.1) mmol/L Calcium (8.4-10.2) mg/dL Magnesium (1.6-2.3) mg/dL Total Bilirubin (0.2-1.3) mg/dL AST (17-59) IU/L ALT (<50) IU/L Alkaline Phosphatase (38-126) U/L Total Creatine Kinase 169 (55-170) U/L Troponin I 0.059 H (0.01-0.034) ng/mL NT-Pro-B Natriuret Pep (<125) pg/mL Total Protein (6.3-8.2) g/dL Albumin (3.5-5.0) g/dL Globulin (1.7-4.1) g/dL Albumin/Globulin Ratio (1.0-2.8) Lipase (23-300) U/L Procalcitonin (<0.5) ng/mL MDM Narrative Medical decision making narrative: [52] year old patient presents with shortness of breath with exertion Multiple etiologies for patient's symptoms considered including, but not limited to: [Medical noncompliance, CHF exacerbation due to noncompliance and increase fluid intake versus other] Prior Charts reviewed in our EMR Primary Historian: patient Labs reviewed and interpreted by myself: No leukocytosis or left shift, no signs of anemia, electrolytes within normal limits, renal function slightly above baseline at 1.25, GFR greater than 60, BNP 7550, troponin indeterminate at 0.063. Imaging reviewed: Chest x-ray demonstrates Consultations: Patient's symptoms improved over duration of stay with above-stated therapies. Findings and discharge diagnosis discussed with patient/family followed by verbalization of understanding Return precautions discussed with patient/family whom verbalize understanding of diagnosis and plan Discharge Plan Departure Patient Disposition: Home Clinical Impression: Acute CHF Instructions: DI for Heart Failure Activity Restrictions/Additional Instructions: *You have been diagnosed with [shortness of breath due to acute exacerbation of CHF *What to do: *Please return to your previously prescribed dosing regimen of diuretic *Please follow up with your primary care provider in 2-3 days, call for an appointment. Let them know you were seen in the Emergency Department and that we ask that you be seen in follow up. We will electronically transmit a record of today's note if your PCP is in our system *If you do not have a primary care provider please contact the [facility] Resource line at [phone]. They will ask some questions about your medical history and help get you set up with a doctor in the community. *Return to Emergency Department if you should have any new, worsening or concerning symptoms, such as [fever greater than 101 F, shaking chills, worsenin g pain, persistent vomiting or other bothersome symptoms] Prescriptions: No Action aspirin [Adult Aspirin Regimen] 81 mg tablet,delayed release (DR/EC) 81 mg PO DAILY spironolactone 25 mg tablet 25 mg PO DAILY Qty: 30 11RF sildenafil 100 mg tablet 100 mg PO DAILY PRN (Reason: sexual activity) Qty: 30 11RF Rx Instructions: administer 30 minutes to 4 hours before activity atorvastatin 40 mg tablet 40 mg PO DAILY Qty: 30 11RF metoprolol tartrate 25 mg tablet 25 mg PO DAILY Qty: 30 11RF bumetanide 1 mg tablet 1 mg PO DAILY PRN (Reason: swelling in legs) Qty: 30 11RF Referrals: Nick Ling DO [Primary Care Provider] - Stand Alone Forms: Patient Portal/API
--- NOTE | 2023-03-07 02:16 | DI.RAD.S_ITS ---
PROCEDURE: XR CHEST 2V INDICATIONS: SOB TECHNIQUE: 2 views of the chest were acquired. COMPARISON: None. FINDINGS: Surgical changes and devices: A cardiac pacemaker/AICD is seen with pulse generator in the left chest. Lungs and pleura: Mild bilateral interstitial prominence. No pleural effusion or pneumothorax. Mediastinum: Mediastinal contours are normal. Heart size is enlarged. Bones and chest wall: No suspicious bony abnormalities. Soft tissues appear unremarkable. IMPRESSION: Cardiomegaly mild bilateral interstitial prominence is suspicious for mild pulmonary edema/CHF. An atypical or viral pneumonia could appear similarly. There is no significant discrepancy when compared to the overnight preliminary report. Approved by: Mina Tidwell M.D. on 03/07/2023 at 8:24
[2023-03-07 02:57] LABS: INR 1.3 (0.9-1.3); Prothrombin Time 14.9 SECONDS (10.1-12.7)
[2023-03-07 03:01] LABS: Add Manual Diff / Slide Review NO; Basophils Absolute Auto 400 /uL (0-100); Basophils Percent Auto 4.7 % (0-2); Eosinophils Absolute Auto 200 /uL (0-450); Hematocrit 49.7 % (41-53); Hemoglobin 16.6 g/dL (13.5-17.5); Lymphocytes Absolute Auto 1400 /uL (1100-4500); Lymphocytes Percent Auto 16.6 % (25-40); Mean Corpuscular HGB Conc 33.5 % (30-36); Mean Corpuscular Volume 89.6 fL (80-100); Monocytes Absolute Auto 500 /uL (0-900); Monocytes Percent Auto 6.1 % (3-14); Neutrophils Absolute Auto 6200 /uL (1500-7000); Neutrophils Percent Auto 70.6 % (50-75); Platelet Count 200 X10^3/uL (150-400); Red Blood Cell Count 5.55 X10^6/uL (4.5-5.9); Red Cell Distribution Width 13.5 % (11.6-14.8); White Blood Cell Count 8.7 X10^3/uL (4.5-11.0)
[2023-03-07 03:03] LABS: Alanine Aminotransferase 109 IU/L (<50); Albumin 4.1 g/dL (3.5-5.0); Albumin Globulin Ratio 1.2 (1.0-2.8); Alkaline Phosphatase 90 U/L (38-126); Aspartate Aminotransferase 86 IU/L (17-59); Bilirubin Total 0.8 mg/dL (0.2-1.3); Blood Urea Nitrogen 25 mg/dL (9-20); Calcium 9.5 mg/dL (8.4-10.2); Carbon Dioxide 28 mmol/L (22-32); Chloride 103 mmol/L (98-107); Creatine Kinase 215 U/L (55-170); Estimated Glomerular Filt Rate > 60 mL/min (>60); Globulin 3.3 g/dL (1.7-4.1); Glucose 112 mg/dL (70-100); HEMOLYSIS < 15 (0-50); Lipase 49 U/L (23-300); Magnesium 2.2 mg/dL (1.6-2.3); Potassium 4.7 mmol/L (3.4-5.1); Sodium 137 mmol/L (137-145); Total Protein 7.4 g/dL (6.3-8.2)
[2023-03-07 03:14] LABS: NT-proBNP (BNP-Adult 18+) 7550 pg/mL (<125); Troponin I 0.063 ng/mL (0.01-0.034)
[2023-03-07 03:19] LABS: Procalcitonin 0.11 ng/mL (<0.5)
[2023-03-07] MEDS: FUROSEMIDE 40 MG/4 ML VIAL IV (04:01)
[2023-03-07 05:16] LABS: Creatine Kinase 169 U/L (55-170)
[2023-03-07 05:29] LABS: Troponin I 0.059 ng/mL (0.01-0.034)
== END 2023-03-07 05:53 | disposition home or self-care (01) ==
PROVIDERS: Emergency Provider Emergency Medicine; PCP Family Medicine
DX: I50.9 Heart failure, unspecified (principal); R06.02 Shortness of breath; Z95.0 Presence of cardiac pacemaker
CPT/HCPCS: 36415; 71046; 80053; 82550; 83605; 83690; 83735; 83880; 84145; 84484; 85025; 85610; 87040; 93005; 96374; 99284; J1940

== ENCOUNTER 2023-03-24 10:39 | Emergency (ER) | payer OTHER, MEDICAID, SELFPAY ==
[2023-03-24 10:45] VITALS: BP 122/86; PULSE 47; RESP 15; TEMP 36.2; O2SAT 100; BMI 25.7
--- NOTE | 2023-03-24 10:52 | ED_ITS ---
HPI - General Adult General Chief complaint: Dental/Oral Stated complaint: abcess teeth Time Seen by Provider: 03/24/23 10:49 Mode of arrival: Ambulatory History of Present Illness HPI narrative: 52-year-old male daily smoker with history of hypertension, hyperlipidemia, CHF, pacemaker presents with chief complaint?of dental pain on the right lower side with associated swelling for the past few days. He states he has an appointment with a dentist on Monday but the pain and swelling are becoming increasingly bothersome. He denies any trouble swallowing, no fever or chills. No chest pain or shortness of breath. Related Data Home Medications Medication Instructions Recorded Confirmed aspirin 81 mg tablet,delayed 81 mg PO DAILY 07/27/22 03/14/23 release (Adult Aspirin Regimen) bupropion HCl 150 mg 24 hr tablet, 150 mg PO QAM 03/14/23 03/14/23 extended release (Wellbutrin XL) Previous Rx's Medication Instructions Recorded atorvastatin 40 mg tablet 40 mg PO DAILY #30 tabs 07/27/22 bumetanide 1 mg tablet 1 mg PO DAILY PRN swelling in legs 07/27/22 #30 tabs metoprolol tartrate 25 mg tablet 25 mg PO DAILY #30 tabs 07/27/22 sildenafil 100 mg tablet 100 mg PO DAILY PRN sexual 07/27/22 activity #30 tabs spironolactone 25 mg tablet 25 mg PO DAILY #30 tabs 07/27/22 amoxicillin 875 mg-potassium 1 tab PO Q12H #20 tabs 03/24/23 clavulanate 125 mg tablet hydrocodone 5 mg-acetaminophen 325 1 tab PO Q4-6H PRN pain #10 tabs 03/24/23 mg tablet Allergies Allergy/AdvReac Type Severity Reaction Status Date / Time No Known Drug Allergies Allergy Verified 03/24/23 10:47 Review of Systems Review of Systems Narrative: GENERAL: Denies chills, fatigue, malaise, fever, sweats. HEENT: See HPI RESPIRATORY: Denies dyspnea, cough, wheezing, hemoptysis, sputum. CARDIOVASCULAR: Denies chest pain, palpitations, orthopnea, edema, GASTROINTESTINAL: Denies nausea, vomiting, abdominal pain, diarrhea, constipation, melena. : Denies dysuria, frequency, incontinence, hematuria, urinary retention. MUSCULOSKELETAL: denies weakness, joint pain, or bony pain SKIN: Denies rash, skin lesions, or other NEUROLOGIC: Denies weakness, headache, numbness, change in speech, confusion, seizures, incoordination. PSYCHIATRIC: No concerning psychosocial issues. 12 point review of systems is negative except for those stated above Patient History Medical History ADHD Anxiety CHF (congestive heart failure) Deep vein thrombosis Erectile dysfunction Kidney stones Low testosterone Poor eyesight Shoulder pain Tobacco dependence Surgical History Anesthesia History of cardiac defibrillator placement Pacemaker Family History Father Diabetes mellitus Mother Cancer Social History Smoking Status: Current every day smoker Smoking Status: Current every day smoker tobacco type: cigarettes alcohol intake frequency: holidays/special occasions only Substance Use Type: marijuana Exam Narrative Exam Narrative: GEN: AOx3 and in mild distress EYES: Pupils are equal, round, and reactive to light and accommodation. Extraoccular muscles are intact bilaterally. There is no subconjunctival hemorrhage or exudate. HENT: Mild right-sided facial swelling, most notable right lower jaw, no redness, warmth or fluctuance. Intraoral exam demonstrates poor dentition throughout, no obvious drainage or fluctuance suggesting an abscess that can be drained. Moist mucous membranes, airway patent, controlling secretions CHEST: Lungs are clear to auscultation bilaterally and free of wheezes, rales, or rhonchi. Heart rate is regular rhythm, there are no murmurs, clicks, rubs, or gallops. There is no chest wall tenderness. ABD: Abdomen is soft and nontender. There is no guarding or rebound. Bowel sounds are normal in all 4 quadrants. There is no mass or organomegaly. EXT: Full painless ROM of all extremities with no loss of sensation or strength. SKIN: Warm, pink, and dry. No erythema or rash Initial Vital Signs Initial Vital Signs: Vital Signs Temperature 97.2 F L 03/24/23 10:45 Pulse Rate 47 L 03/24/23 10:45 Respiratory Rate 15 03/24/23 10:45 Blood Pressure 122/86 03/24/23 10:45 Pulse Oximetry 100 03/24/23 10:45 Oxygen Delivery Method Room Air 03/24/23 10:45 Course Orders Ordered: Discontinued Medications Hydrocodone Bitart/Acetaminophen (Hydrocodone/Acet 5/325 Tablet) 1 tab PO NOW ONE Stop: 03/24/23 11:23 Last Admin: 03/24/23 11:27 Dose: 1 tab Documented By: TED Amoxicillin/Clavulanate Potassium (Amoxicillin/Clav 875/125 Mg) 1 tab PO NOW ONE Stop: 03/24/23 11:23 Last Admin: 03/24/23 11:28 Dose: 1 tab Documented By: RB Ketorolac Tromethamine (Ketorolac 30 Mg/Ml Vial) 15 mg IM NOW ONE Stop: 03/24/23 11:23 Last Admin: 03/24/23 11:28 Dose: 15 mg Documented By: TED Vital Signs Vital signs: Vital Signs - 8 hr 03/24/23 10:45 Temperature 97.2 F L Pulse Rate 47 L Respiratory Rate 15 Blood Pressure 122/86 Pulse Oximetry 100 Oxygen Delivery Method Room Air Medical Decision Making Lab Data Labs: Lab Results 03/24/23 Range/Units 10:36 Urine Color Yellow Urine Appearance Clear Urine pH 5.5 (4.5-8.0) Ur Specific [place] 1.025 (1.000-1.035) Urine Protein 2+ H (Negative) Urine Glucose (UA) Negative (Negative) g/dL Urine Ketones Trace H (NEGATIVE) Urine Occult Blood Negative (Negative) Urine Nitrate Negative (Negative) Urine Bilirubin 1+ H (NEGATIVE) Ur Bilirubin Confirm Negative (Negative) Urine Urobilinogen 1.0 (0.2) E.U./dL Ur Leukocyte Esterase Negative (NEGATIVE) Urine RBC None seen (0-5/HPF) Urine WBC 0-1/hpf (0-5/HPF) Ur Squamous Epith Cells None seen (0-5/HPF) Amorphous Sediment 1+ Urine Bacteria None seen (None) Ur Culture Indicated? Cult not indicated Point of Care Testing Glucose POC 108 Urine Dip Bedside Urine Glucose Negative Bedside Urine Bilirubin - Negative Bedside Urine Ketone +/- 5 Urine Specific [place] 1.020 Bedside Urine Occult Blood - Negative Bedside Urine pH 6.0 Bedside Urine Protein + 30 Bedside Urine Urobilinogen - Negative Bedside Urine Nitrite - Negative Bedside Urine Leukocytes - Negative Esterase Point of care testing: Point of Care Testing Glucose POC 108 Urine Dip Bedside Urine Glucose Negative Bedside Urine Bilirubin - Negative Bedside Urine Ketone +/- 5 Urine Specific [place] 1.020 Bedside Urine Occult Blood - Negative Bedside Urine pH 6.0 Bedside Urine Protein + 30 Bedside Urine Urobilinogen - Negative Bedside Urine Nitrite - Negative Bedside Urine Leukocytes - Negative Esterase MDM Narrative Medical decision making narrative: [52] year old patient presents with facial swelling and dental pain Multiple etiologies for patient's symptoms considered including, but not limited to: [Dental infection versus abscess versus other] Prior Charts reviewed in our EMR Primary Historian: patient Labs reviewed and interpreted by myself: No UTI Patient's history and physical exam are reassuring, there is dental pain and some facial swelling but no evidence of drainable abscess. Airways patent and patient is controlling secretions. Been controlling antibiotics indicated, he has follow-up with his dentist next week Patient's symptoms improved over duration of stay with above-stated therapies. Findings and discharge diagnosis discussed with patient/family followed by verbalization of understanding Return precautions discussed with patient/family whom verbalize understanding of diagnosis and plan Discharge Plan Departure Patient Disposition: Home Clinical Impression: Dental abscess Instructions: Tooth Abscess Activity Restrictions/Additional Instructions: *You have been diagnosed with [facial swelling due to dental abscess, as we discussed your history and physical exam are reassuring and there is no obviously drainable abscess currently.] *What to do: *Please continue to take your regular medications as directed. [x ] New medication prescriptions sent to your pharmacy: [ [facility]] [ ] New medication written as a paper prescription [ ] No new medications given *Please follow up with your primary care provider in 2-3 days, call for an appointment. Let them know you were seen in the Emergency Department and that we ask that you be seen in follow up. We will electronically transmit a record of today's note if your PCP is in our system *If you do not have a primary care provider please contact the [facility] Resource line at [phone]. They will ask some questions about your medical history and help get you set up with a doctor in the community. *Return to Emergency Department if you should have any new, worsening or concerning symptoms, such as [fever greater than 101 F, shaking chills, worsening pain, persistent vomiting or other bothersome symptoms] Prescriptions: New hydrocodone-acetaminophen 5-325 mg tablet 1 tab PO Q4-6H PRN (Reason: pain) Qty: 10 0RF amoxicillin-pot clavulanate 875-125 mg tablet 1 tab PO Q12H Qty: 20 0RF No Action aspirin [Adult Aspirin Regimen] 81 mg tablet,delayed release (DR/EC) 81 mg PO DAILY spironolactone 25 mg tablet 25 mg PO DAILY Qty: 30 11RF sildenafil 100 mg tablet 100 mg PO DAILY PRN (Reason: sexual activity) Qty: 30 11RF Rx Instructions: administer 30 minutes to 4 hours before activity atorvastatin 40 mg tablet 40 mg PO DAILY Qty: 30 11RF metoprolol tartrate 25 mg tablet 25 mg PO DAILY Qty: 30 11RF bumetanide 1 mg tablet 1 mg PO DAILY PRN (Reason: swelling in legs) Qty: 30 11RF bupropion HCl [Wellbutrin XL] 150 mg tablet extended release 24 hr 150 mg PO QAM Referrals: Nick Ling DO [Primary Care Provider] - Stand Alone Forms: Patient Portal/API
[2023-03-24 11:27] LABS: Appearance Urine UA CLEAR; Bilirubin Urine UA 1+ (NEGATIVE); Color Urine UA YELLOW; Glucose Urine UA NEGATIVE (Negative); Ketones Urine UA TRACE (NEGATIVE); Leukocyte Esterase Urine UA NEGATIVE (NEGATIVE); Nitrite Urine UA NEGATIVE (Negative); Occult Blood Urine UA NEGATIVE (Negative); Protein Urine UA 2+ (Negative); Specific Gravity Urine UA 1.025 (1.000-1.035); pH Urine UA 5.5 (4.5-8.0)
[2023-03-24] MEDS: HYDROCODONE/ACET 5/325 TABLET 1 TAB PO (11:27)
[2023-03-24] MEDS: KETOROLAC 30 MG/ML VIAL 15 MG IM (11:28)
[2023-03-24] MEDS: AMOXICILLIN/CLAV 875/125 MG 1 TAB PO (11:28)
[2023-03-24 11:42] LABS: Amorphous Sediment Urine 1+; Bacteria Urine None Seen; Culture Indicated Urine Cult Not Indicated; Ictotest Urine Negative (Negative); RBC Urine None Seen (0-5/HPF); Squamous Epithelial Cell Urine None Seen (0-5/HPF); WBC Urine 0-1/HPF (0-5/HPF)
[2023-03-24 12:08] VITALS: BP 124/64; PULSE 78; RESP 20; O2SAT 97
== END 2023-03-24 12:07 | disposition home or self-care (01) ==
PROVIDERS: Emergency Provider Emergency Medicine; PCP Family Medicine
DX: K04.7 Periapical abscess without sinus (principal)
CPT/HCPCS: 81001; 81003; 82962; 96372; 99283; J1885

== ENCOUNTER 2023-03-26 01:49 | Emergency (ER) | payer OTHER, MEDICAID, SELFPAY ==
[2023-03-26 01:56] VITALS: BP 117/91; PULSE 106; RESP 18; TEMP 36.6; O2SAT 100; BMI 25.7
--- NOTE | 2023-03-26 03:40 | PC.NURSE ---
pt called no answer unable to locate pt in waiting room
--- NOTE | 2023-03-26 04:20 | PC.NURSE ---
pt continues to not be in waiting room
== END 2023-03-26 04:22 | disposition left against medical advice (07) ==
PROVIDERS: Emergency Provider Emergency Medicine; PCP Family Medicine
DX: K04.7 Periapical abscess without sinus (principal)
CPT/HCPCS: 99281

== ENCOUNTER 2023-04-01 20:39 | Emergency (ER) | payer OTHER, MEDICAID, SELFPAY ==
[2023-04-01 20:49] VITALS: BP 122/74; PULSE 98; RESP 20; TEMP 37.2; O2SAT 98; BMI 25.7
--- NOTE | 2023-04-01 22:21 | PC.NURSE ---
Patient arrived during extremely busy time in ER; Vital signs stable at triage but patient was very anxious. RN assured him that we would see him as soon as possible. Not in ER waiting room at [id number] when Rn went to room him.
== END 2023-04-01 22:24 | disposition left against medical advice (07) ==
PROVIDERS: Emergency Provider Emergency Medicine; PCP Family Medicine
CPT/HCPCS: 99281

== ENCOUNTER 2023-04-01 23:48 | Observation (INO) | payer OTHER, MEDICAID, SELFPAY ==
[2023-04-01 23:48] VITALS: BP 134/101; PULSE 101; RESP 18; TEMP 36.8; O2SAT 99; BMI 25.7
[2023-04-01 23:50] VITALS: PULSE 103; O2SAT 100
[2023-04-02] VITALS (67 sets, daily range): BP systolic 96–166; BP diastolic 60–99; PULSE 50–100; RESP 10–32; TEMP 35.6–36.6; O2SAT 78–100; BMI 26.2
--- NOTE | 2023-04-02 00:21 | ED_ITS ---
HPI - General Adult General Chief complaint: Shortness of Breath/Dyspnea Stated complaint: sob Time Seen by Provider: 04/02/23 00:01 Source: patient and EMS Mode of arrival: EMS Limitations: no limitations History of Present Illness HPI narrative: Patient is a 52-year-old male he was brought in by EMS for evaluation of shortness of breath. Patient has a history of an RI. This was several years ago. 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 This led to very severe congestive heart failure. He stated that at 1 point his ejection fraction was less than 20%. He has been on medication since that time. He states that his last echocardiogram which he stated was greater than 3 years ago his ejection fraction was 40%. He has a pacemaker/defibrillator in place. He states for the past several days or even a little longer he is had progressively worsening shortness of breath specifically on exertion. No lower extremity swelling. No chest pain. No fevers. No coughing. He states he is having some abdominal distention as well but no abdominal pain. He came to the emergency department here yesterday by private vehicle but left without being seen. He states that he moved his local area a couple years ago. He is not followed up with Cardiology. He saw his primary doctor the beginning of the year. At that point he had been off of all of his medications for approximately a month. He was started back on his medicines. It was advised that he follow-up with cardiology. He is not done that up to this point. He is not on blood thinners. He states at 1 time he was on blood thinning medication but has since been taken off of it. He states that he no longer uses any illicit drugs. Related Data Home Medications Medication Instructions Recorded Confirmed aspirin 81 mg tablet,delayed 81 mg PO DAILY 07/27/22 03/14/23 release (Adult Aspirin Regimen) bupropion HCl 150 mg 24 hr tablet, 150 mg PO QAM 03/14/23 03/14/23 extended release (Wellbutrin XL) Previous Rx's Medication Instructions Recorded atorvastatin 40 mg tablet 40 mg PO DAILY #30 tabs 07/27/22 bumetanide 1 mg tablet 1 mg PO DAILY PRN swelling in legs 07/27/22 #30 tabs metoprolol tartrate 25 mg tablet 25 mg PO DAILY #30 tabs 07/27/22 sildenafil 100 mg tablet 100 mg PO DAILY PRN sexual 07/27/22 activity #30 tabs spironolactone 25 mg tablet 25 mg PO DAILY #30 tabs 07/27/22 amoxicillin 875 mg-potassium 1 tab PO Q12H #20 tabs 03/24/23 clavulanate 125 mg tablet hydrocodone 5 mg-acetaminophen 325 1 tab PO Q4-6H PRN pain #10 tabs 03/24/23 mg tablet Allergies Allergy/AdvReac Type Severity Reaction Status Date / Time No Known Drug Allergies Allergy Verified 03/24/23 10:47 Review of Systems Review of Systems ROS Unobtainable: All systems reviewed & are unremarkable except as noted in HPI and below Patient History Medical History ADHD Anxiety CHF (congestive heart failure) Deep vein thrombosis Erectile dysfunction Kidney stones Low testosterone Poor eyesight Shoulder pain Tobacco dependence Surgical History Anesthesia History of cardiac defibrillator placement Pacemaker Family History Father Diabetes mellitus Mother Cancer Social History Smoking Status: Current every day smoker Smoking Status: Current every day smoker tobacco type: cigarettes alcohol intake frequency: holidays/special occasions only Substance Use Type: marijuana Exam Initial Vital Signs Initial Vital Signs: Vital Signs Temperature 98.2 F 04/01/23 23:48 Pulse Rate 101 H 04/01/23 23:48 Respiratory Rate 18 04/01/23 23:48 Blood Pressure 134/101 H 04/01/23 23:48 Pulse Oximetry 99 04/01/23 23:48 Oxygen Delivery Method Room Air 04/01/23 23:48 Const General: cooperative, comfortable and No ill appearing HENMT Head: normal to inspection and normocephalic Resp Effort & Inspection: normal respiratory effort, no respiratory distress and tachypneic Auscultation: clear to auscultation bilaterally Cardio Rate: tachycardic Rhythm: regular rhythm GI Inspection: normal to inspection and non-distended Skin General: no rashes or lesions noted Neuro General: patient alert, patient awake, patient oriented x3 and moves all extremities Speech: speech normal Gait: normal gait Extrem General: No edema Course Orders Ordered: ED Orders 04/02/23 00:23 XR chest 1V Stat EKG-12 Lead Stat 04/02/23 00:40 Covid-19 + FLU A/B + RSV - PCR Stat 04/02/23 00:50 Complete Blood Count AUTO DIFF Stat Comprehensive Metabolic Panel Stat Lipase Stat Magnesium Stat NT-proBNP (BNP-Adult 18+) Stat Troponin & CK Cardiac Panel Stat 04/02/23 01:35 CT angio chest PE protocol Stat 04/02/23 04:03 Troponin & CK Cardiac Panel Stat Discontinued Medications Aspirin (Aspirin 81 Mg Chew Tab) 324 mg PO NOW ONE Stop: 04/02/23 01:35 Last Admin: 04/02/23 01:42 Dose: 324 mg Documented By: SHEN Furosemide 60 mg/ Sodium (Chloride) 56 mls @ 112 mls/hr IV NOW ONE Stop: 04/02/23 01:35 Last Infusion: 04/02/23 02:35 Dose: 0 mls/hr Documented By: Admin: 04/02/23 02:05 Dose: 112 mls/hr Documented By: SHEN Vital Signs Vital signs: Vital Signs - 8 hr 04/01/23 23:48 04/01/23 23:50 04/02/23 00:00 Temperature 98.2 F Pulse Rate 101 H 103 H Respiratory Rate 18 Blood Pressure 134/101 H 130/97 H Pulse Oximetry 99 100 Oxygen Delivery Method Room Air 04/02/23 00:00 04/02/23 00:30 04/02/23 00:30 Temperature Pulse Rate 100 H 99 H Respiratory Rate 21 24 Blood Pressure 125/79 Pulse Oximetry 97 Oxygen Delivery Method 04/02/23 01:00 04/02/23 01:00 04/02/23 01:30 Temperature Pulse Rate 96 H 96 H Respiratory Rate 21 14 Blood Pressure 118/92 H Pulse Oximetry 98 95 Oxygen Delivery Method 04/02/23 01:31 04/02/23 01:31 04/02/23 02:04 Temperature Pulse Rate 98 H 100 H Respiratory Rate 26 H Blood Pressure 122/97 H Pulse Oximetry 99 100 Oxygen Delivery Method 04/02/23 02:30 04/02/23 02:40 04/02/23 02:40 Temperature Pulse Rate 94 H 94 H Respiratory Rate 19 27 H Blood Pressure 131/99 H 131/99 H Pulse Oximetry 98 100 Oxygen Delivery Method 04/02/23 03:00 04/02/23 03:01 04/02/23 03:01 Temperature Pulse Rate 95 H 93 H Respiratory Rate 24 25 H Blood Pressure 112/92 H Pulse Oximetry 98 100 Oxygen Delivery Method 04/02/23 03:30 04/02/23 03:31 04/02/23 03:31 Temperature Pulse Rate 90 91 H Respiratory Rate 25 H 24 Blood Pressure 103/60 Pulse Oximetry 98 98 Oxygen Delivery Method 04/02/23 04:00 04/02/23 04:10 04/02/23 04:10 Temperature Pulse Rate 90 88 Respiratory Rate 22 22 Blood Pressure 123/91 H Pulse Oximetry 98 99 Oxygen Delivery Method 04/02/23 04:30 04/02/23 04:31 04/02/23 04:31 Temperature Pulse Rate 89 89 Respiratory Rate 12 18 Blood Pressure 113/90 Pulse Oximetry 97 98 Oxygen Delivery Method Medical Decision Making Medical Records Medical records reviewed: Yes I reviewed the patient's medical records. Lab Data Lab results reviewed: Yes I reviewed the patient's lab results. 04/02/23 00:50 04/02/23 00:50 Labs: Lab Results 04/02/23 04/02/23 04/02/23 Range/Units 00:40 00:50 00:50 WBC 10.1 (4.5-11.0) X10^3/uL RBC 5.75 (4.5-5.9) X10^6/uL Hgb 17.0 (13.5-17.5) g/dL Hct 50.8 (41-53) % MCV 88.3 (80-100) fL MCH 29.5 (26-34) PG MCHC 33.4 (30-36) % RDW 14.2 (11.6-14.8) % Plt Count 207 (150-400) X10^3/uL Neut % (Auto) Not Reportable Lymph % (Auto) Not Reportable [place] % (Auto) Not Reportable Eos % (Auto) Not Reportable Baso % (Auto) Not Reportable Lymph # (Auto) Not Reportable [place] # (Auto) Not Reportable Baso # (Auto) Not Reportable Total Counted 100 Seg Neutrophils % 75.0 H (38-70) % Band Neutrophils % 1.0 L (3-7) % Lymphocytes % (Manual) 19.0 L (25-45) % Monocytes % (Manual) 4.0 (2-11) % Eosinophils % (Manual) 1.0 L (2-4) % Neutrophils # (Manual) 7676 H (9822-7510) /uL RBC Morphology Normal morphology Sodium 137 (137-145) mmol/L Potassium 5.0 (3.4-5.1) mmol/L Chloride 108 H (98-107) mmol/L Carbon Dioxide 21 L (22-32) mmol/L BUN 34 H (9-20) mg/dL Creatinine 1.13 (0.66-1.25) mg/dL Estimated GFR > 60 (>60) mL/min BUN/Creatinine Ratio 30.1 H (6-22) Glucose 102 H (70-100) mg/dL Calcium 8.7 (8.4-10.2) mg/dL Magnesium 2.0 (1.6-2.3) mg/dL Total Bilirubin 1.0 (0.2-1.3) mg/dL AST 116 H (17-59) IU/L ALT 142 H (<50) IU/L Alkaline Phosphatase 181 H (38-126) U/L Total Creatine Kinase (55-170) U/L Troponin I (0.01-0.034) ng/mL NT-Pro-B Natriuret Pep (<125) pg/mL Total Protein 6.7 (6.3-8.2) g/dL Albumin 3.4 L (3.5-5.0) g/dL Globulin 3.3 (1.7-4.1) g/dL Albumin/Globulin Ratio 1.0 (1.0-2.8) Lipase 70 (23-300) U/L SARS-CoV-2 (PCR) Negative (Negative) Influenza A (RT-PCR) Flu a negative (NEGATIVE) Influenza B (RT-PCR) Flu b negative (NEGATIVE) RSV (PCR) Negative (Negative) 04/02/23 04/02/23 Range/Units 00:50 04:03 WBC (4.5-11.0) X10^3/uL RBC (4.5-5.9) X10^6/uL Hgb (13.5-17.5) g/dL Hct (41-53) % MCV (80-100) fL MCH (26-34) PG MCHC (30-36) % RDW (11.6-14.8) % Plt Count (150-400) X10^3/uL Neut % (Auto) Lymph % (Auto) [place] % (Auto) Eos % (Auto) Baso % (Auto) Lymph # (Auto) [place] # (Auto) Baso # (Auto) Total Counted Seg Neutrophils % (38-70) % Band Neutrophils % (3-7) % Lymphocytes % (Manual) (25-45) % Monocytes % (Manual) (2-11) % Eosinophils % (Manual) (2-4) % Neutrophils # (Manual) (4540-1187) /uL RBC Morphology Sodium (137-145) mmol/L Potassium (3.4-5.1) mmol/L Chloride (98-107) mmol/L Carbon Dioxide (22-32) mmol/L BUN (9-20) mg/dL Creatinine (0.66-1.25) mg/dL Estimated GFR (>60) mL/min BUN/Creatinine Ratio (6-22) Glucose (70-100) mg/dL Calcium (8.4-10.2) mg/dL Magnesium (1.6-2.3) mg/dL Total Bilirubin (0.2-1.3) mg/dL AST (17-59) IU/L ALT (<50) IU/L Alkaline Phosphatase (38-126) U/L Total Creatine Kinase 99 91 (55-170) U/L Troponin I 0.424 H* 0.381 H* (0.01-0.034) ng/mL NT-Pro-B Natriuret Pep 64866 H (<125) pg/mL Total Protein (6.3-8.2) g/dL Albumin (3.5-5.0) g/dL Globulin (1.7-4.1) g/dL Albumin/Globulin Ratio (1.0-2.8) Lipase (23-300) U/L SARS-CoV-2 (PCR) (Negative) Influenza A (RT-PCR) (NEGATIVE) Influenza B (RT-PCR) (NEGATIVE) RSV (PCR) (Negative) Imaging Data Chest x-ray: Radiologist's Impression: PROCEDURE:? XR CHEST 1V ? INDICATIONS:? SOB ? TECHNIQUE:? One view of the chest was acquired.? ? COMPARISON:? [facility], CR, XR CHEST 2V, 03/07/2023, 2:26. ? FINDINGS:? ? Surgical changes and devices:? Pacemaking device and dual chamber leads.? ? Lungs and pleura:? Lungs are clear.? No pleural effusions or pneumothorax.? ? Mediastinum:? Mediastinal contours appear normal.? Heart size is chronically mildly enlarged.? ? Bones and chest wall:? No suspicious bony lesions.? Overlying soft tissues appear unremarkable.? ? ? IMPRESSION:? Chronic mild CHF pattern without acute exacerbation. CT scan - chest: Radiologist's Impression: No pulmonary emboli Small right pleural effusion with mild interstitial thickening of the lungs. Patchy focus of airspace disease in the left upper lobe. Findings could reflect of of edema although atypical infection could also be considered Mild mediastinal and hilar lymphadenopathy, nonspecific ECG Data Attestation: I personally reviewed and interpreted this ECG as follows: Prior ECG tracings: available for review Interpretation: Sinus rhythm Ventricular rate 100 Left axis deviation LVH QRS 118 milliseconds QTC [address] elevation V3 V4 T-wave inversions V6 Today's EKG has same appearance as EKG dated 03/07/2023 MDM Narrative Medical decision making narrative: He has a fairly extensive cardiac history to include a prior history of an RI had extensive CHF with an ejection fraction that has been less than 20. He states his last echocardiogram which was actually quite some time ago his eje ction fraction was greater than 40%. He has been on his medications for the past several months. He denies any current drug abuse. He has been having shortness of breath for the past several days. His BNP approximately twice normal. He is not hypoxic but was tachycardic. He is not on blood thinners. He states he has had a blood clot in ? my left ventricle? in the past and that is why he was on blood thinners but he states they took him off of these medications. A CT scan does not show any signs of pulmonary embolism. He was given diuretics. He did diurese greater than 1 L. He states he is feeling somewhat better. His troponin was indeterminate. Repeat troponin after diuresis somewhat improved. I discussed the case with Dr. Call with cardiology who agrees with admission to the hospital, diuresis, echocardiogram and further evaluation. I then discuss the case with Dr. Rader hospitalist on-call who will admit for further evaluation and treatment. Discussed the need for admission with the patient. He expressed understanding and agreement. Discharge Plan Departure Patient Disposition: Admitted As Inpatient Clinical Impression: CHF (congestive heart failure) Admit Date/Time: 04/02/23 05:30 Admit Provider: Blake Rader
--- NOTE | 2023-04-02 00:23 | DI.RAD.S_ITS ---
PROCEDURE: XR CHEST 1V INDICATIONS: SOB TECHNIQUE: One view of the chest was acquired. COMPARISON: [facility], CR, XR CHEST 2V, 03/07/2023, 2:26. FINDINGS: Surgical changes and devices: Pacemaking device and dual chamber leads. Lungs and pleura: Lungs are clear. No pleural effusions or pneumothorax. Mediastinum: Mediastinal contours appear normal. Heart size is chronically mildly enlarged. Bones and chest wall: No suspicious bony lesions. Overlying soft tissues appear unremarkable. IMPRESSION: Chronic mild CHF pattern without acute exacerbation. Dictated by: Tuan Menchaca M.D. on 04/02/2023 at 1:03 Approved by: Tuan Menchaca M.D. on 04/02/2023 at 1:03
[2023-04-02 01:00] LABS: Hematocrit 50.8 % (41-53); Mean Corpuscular HGB Conc 33.4 % (30-36); Mean Corpuscular Hemoglobin 29.5 PG (26-34); Mean Corpuscular Volume 88.3 fL (80-100); Platelet Count 207 X10^3/uL (150-400); Red Blood Cell Count 5.75 X10^6/uL (4.5-5.9); Red Cell Distribution Width 14.2 % (11.6-14.8); White Blood Cell Count 10.1 X10^3/uL (4.5-11.0)
[2023-04-02 01:01] LABS: Add Manual Diff / Slide Review YES
[2023-04-02 01:11] LABS: Alanine Aminotransferase 142 IU/L (<50); Albumin 3.4 g/dL (3.5-5.0); Alkaline Phosphatase 181 U/L (38-126); Aspartate Aminotransferase 116 IU/L (17-59); BUN Creatinine Ratio 30.1 (6-22); Blood Urea Nitrogen 34 mg/dL (9-20); Calcium 8.7 mg/dL (8.4-10.2); Carbon Dioxide 21 mmol/L (22-32); Chloride 108 mmol/L (98-107); Creatine Kinase 99 U/L (55-170); Estimated Glomerular Filt Rate > 60 mL/min (>60); Globulin 3.3 g/dL (1.7-4.1); Glucose 102 mg/dL (70-100); HEMOLYSIS 29 (0-50); Lipase 70 U/L (23-300); Sodium 137 mmol/L (137-145); Total Protein 6.7 g/dL (6.3-8.2)
[2023-04-02 01:22] LABS: NT-proBNP (BNP-Adult 18+) 16600 pg/mL (<125)
[2023-04-02 01:26] LABS: Troponin I 0.424 ng/mL (0.01-0.034)
--- NOTE | 2023-04-02 01:35 | DI.CT.S_ITS ---
PROCEDURE: CT ANGIO CHEST PE PROTOCOL INDICATIONS: Chest pain, shortness of breath, tachycardia TECHNIQUE: After the administration of intravenous contrast, 2 mm thick sections acquired from the pulmonary apices to the posterior costophrenic angles. MIP reformats of the arterial vasculature were utilized. For radiation dose reduction, the following was used: automated exposure control, adjustment of mA and/or kV according to patient size. COMPARISON: None. FINDINGS: Cardiovascular and Mediastinum: Heart size is enlarged. Pulmonary arteries are well opacified without filling defect. Left-sided dual-chamber pacemaker/defibrillator in good position. Lungs and Pleural Spaces: Small right pleural effusion. Mild emphysematous changes noted in both lung apices. Small focal infiltrate is noted in the left upper lobe surrounding a small pulmonary bleb. Lymph Nodes: No mediastinal, hilar or axillary adenopathy. Musculoskeletal: No evidence of rib fracture. Thoracic spine unremarkable. Chest wall and sternum intact. No lytic or blastic lesions. Incidental gynecomastia Upper abdomen: Visualized portions of the liver, spleen and kidneys are unremarkable. Perihepatic free fluid. IMPRESSION: 1. No evidence of pulmonary embolism aortic aneurysm. 2. Left upper lobe small pulmonary infiltrate with underlying pulmonary emphysema present. Mild mediastinal and bilateral axillary adenopathy is partially calcified in the left axilla, and probably reflects reactive adenopathy. Consider follow-up to resolution. 3. Cardiomegaly with pacemaker/defibrillator in place. 4. Perihepatic free fluid in the upper abdomen Note: This final report is concordant with the preliminary after-hours interpretation provided by [facility]) Approved by: Blade Canales M.D. on 04/02/2023 at 8:19
[2023-04-02 01:42] LABS: Influenza A - CEPHEID Flu A NEGATIVE (NEGATIVE); Influenza B - CEPHEID Flu B NEGATIVE (NEGATIVE); Respiratory Syncytial Virus Negative (Negative)
[2023-04-02] MEDS: ASPIRIN 81 MG CHEW TAB 324 MG PO (01:42)
[2023-04-02 01:43] LABS: COVID-19 CEPHEID 4-PLEX PCR Negative (Negative)
[2023-04-02] MEDS: FUROSEMIDE 60 MG in SODIUM CHLORIDE 0.9% 50 ML 112 MG IV (02:05)
[2023-04-02 02:09] LABS: Neutrophils Absolute Manual 7676 /uL (3000-5900); Total Cells Counted 100
[2023-04-02 02:10] LABS: RBC Morphology Normal Morphology
[2023-04-02 04:21] LABS: Creatine Kinase 91 U/L (55-170)
[2023-04-02 04:35] LABS: Troponin I 0.381 ng/mL (0.01-0.034)
--- NOTE | 2023-04-02 05:49 | PM.HP.1 ---
History of Present Illness History of Present Illness Date Patient Seen: 04/02/23 Chief complaint: sob Narrative: 52 y/o with PMHx of HFrEF, non-ischemic, methamphetamine cardiomyopathy, s/p defibrilator, and episodic non-compliance with medications, presented to ED with progressive generalized weakness and exertional dyspnea. In addition, he had several episodes of either palpitations or panic attacks, as per the patient but he never had angina. [facility] Medical History ADHD Anxiety CHF (congestive heart failure) Deep vein thrombosis Erectile dysfunction Kidney stones Low testosterone Poor eyesight Shoulder pain Tobacco dependence Surgical History Anesthesia History of cardiac defibrillator placement Pacemaker Family History Father Diabetes mellitus Mother Cancer Social History household members: none Smoking Status: Current every day smoker Meds Home Medications and Allergies Home Medications Medication Instructions Recorded Confirmed Type aspirin 81 mg tablet,delayed 81 mg PO DAILY 07/27/22 04/02/23 History release (Adult Aspirin Regimen) atorvastatin 40 mg tablet 40 mg PO DAILY #30 tabs 07/27/22 04/02/23 Rx metoprolol tartrate 25 mg tablet 25 mg PO DAILY #30 tabs 07/27/22 03/14/23 Rx sildenafil 100 mg tablet 100 mg PO DAILY PRN sexual 07/27/22 04/02/23 Rx activity #30 tabs spironolactone 25 mg tablet 25 mg PO DAILY #30 tabs 07/27/22 04/02/23 Rx bupropion HCl 150 mg 24 hr tablet, 150 mg PO QAM 03/14/23 04/02/23 History extended release (Wellbutrin XL) hydrocodone 5 mg-acetaminophen 325 1 tab PO Q4-6H PRN pain #10 tabs 03/24/23 04/02/23 Rx mg tablet bumetanide 1 mg tablet 2 mg PO DAILY PRN swelling in legs 04/02/23 04/02/23 History Allergies Allergy/AdvReac Type Severity Reaction Status Date / Time No Known Drug Allergies Allergy Verified 03/24/23 10:47 Review of Systems Eyes Comments: generalized weakness, no fever or chills, no sweats or weight loss Cardiovascular Comments: w/o chest pain Respiratory Comments: worsening shortness of breath with activity Gastrointestinal Comments: mild distension Genitourinary Comments: w/o dysuria Neurologic Comments: negative Psychiatric Comments: episodic panic attacks Hematologic/Lymphatic Comments: w/o bleeding or bruising Exam Vital Signs (past 8 hours): - 04/01/23 23:48 04/01/23 23:50 04/02/23 00:00 Temperature 98.2 F Pulse Rate 101 H 103 H Respiratory Rate 18 Blood Pressure 134/101 H 130/97 H Pulse Oximetry 99 100 Oxygen Delivery Method Room Air 04/02/23 00:00 04/02/23 00:30 04/02/23 00:30 Temperature Pulse Rate 100 H 99 H Respiratory Rate 21 24 Blood Pressure 125/79 Pulse Oximetry 97 Oxygen Delivery Method 04/02/23 01:00 04/02/23 01:00 04/02/23 01:30 Temperature Pulse Rate 96 H 96 H Respiratory Rate 21 14 Blood Pressure 118/92 H Pulse Oximetry 98 95 Oxygen Delivery Method 04/02/23 01:31 04/02/23 01:31 04/02/23 02:04 Temperature Pulse Rate 98 H 100 H Respiratory Rate 26 H Blood Pressure 122/97 H Pulse Oximetry 99 100 Oxygen Delivery Method 04/02/23 02:30 04/02/23 02:40 04/02/23 02:40 Temperature Pulse Rate 94 H 94 H Respiratory Rate 19 27 H Blood Pressure 131/99 H 131/99 H Pulse Oximetry 98 100 Oxygen Delivery Method 04/02/23 03:00 04/02/23 03:01 04/02/23 03:01 Temperature Pulse Rate 95 H 93 H Respiratory Rate 24 25 H Blood Pressure 112/92 H Pulse Oximetry 98 100 Oxygen Delivery Method 04/02/23 03:30 04/02/23 03:31 04/02/23 03:31 Temperature Pulse Rate 90 91 H Respiratory Rate 25 H 24 Blood Pressure 103/60 Pulse Oximetry 98 98 Oxygen Delivery Method 04/02/23 04:00 04/02/23 04:10 04/02/23 04:10 Temperature Pulse Rate 90 88 Respiratory Rate 22 22 Blood Pressure 123/91 H Pulse Oximetry 98 99 Oxygen Delivery Method 04/02/23 04:30 04/02/23 04:31 04/02/23 04:31 Temperature Pulse Rate 89 89 Respiratory Rate 12 18 Blood Pressure 113/90 Pulse Oximetry 97 98 Oxygen Delivery Method Oxygen Delivery Method Room Air Narrative Exam Narrative: laying in bed in no distress Eyes Other: aldo, eomi Neck Other: w/o JVD Resp Other: CTA Cardio Other: RRR Skin Other: no rashes Neuro Other: w/o deficits Extrem Other: w/o swelling Psych Other: appropriate mood and affect Objective Labs 04/02/23 00:50 04/02/23 00:50 Labs: Laboratory Results - last 24 hr 04/02/23 04/02/23 04/02/23 00:40 00:50 00:50 WBC 10.1 RBC 5.75 Hgb 17.0 Hct 50.8 MCV 88.3 MCH 29.5 MCHC 33.4 RDW 14.2 Plt Count 207 Neut % (Auto) Not Reportable Lymph % (Auto) Not Reportable [place] % (Auto) Not Reportable Eos % (Auto) Not Reportable Baso % (Auto) Not Reportable Lymph # (Auto) Not Reportable [place] # (Auto) Not Reportable Baso # (Auto) Not Reportable Total Counted 100 Seg Neutrophils % 75.0 H Band Neutrophils % 1.0 L Lymphocytes % (Manual) 19.0 L Monocytes % (Manual) 4.0 Eosinophils % (Manual) 1.0 L Neutrophils # (Manual) 7676 H RBC Morphology Normal morphology Sodium 137 Potassium 5.0 Chloride 108 H Carbon Dioxide 21 L BUN 34 H Creatinine 1.13 Estimated GFR > 60 BUN/Creatinine Ratio 30.1 H Glucose 102 H Calcium 8.7 Magnesium 2.0 Total Bilirubin 1.0 AST 116 H ALT 142 H Alkaline Phosphatase 181 H Total Creatine Kinase Troponin I NT-Pro-B Natriuret Pep Total Protein 6.7 Albumin 3.4 L Globulin 3.3 Albumin/Globulin Ratio 1.0 Lipase 70 SARS-CoV-2 (PCR) Negative Influenza A (RT-PCR) Flu a negative Influenza B (RT-PCR) Flu b negative RSV (PCR) Negative 04/02/23 04/02/23 00:50 04:03 WBC RBC Hgb Hct MCV MCH MCHC RDW Plt Count Neut % (Auto) Lymph % (Auto) [place] % (Auto) Eos % (Auto) Baso % (Auto) Lymph # (Auto) [place] # (Auto) Baso # (Auto) Total Counted Seg Neutrophils % Band Neutrophils % Lymphocytes % (Manual) Monocytes % (Manual) Eosinophils % (Manual) Neutrophils # (Manual) RBC Morphology Sodium Potassium Chloride Carbon Dioxide BUN Creatinine Estimated GFR BUN/Creatinine Ratio Glucose Calcium Magnesium Total Bilirubin AST ALT Alkaline Phosphatase Total Creatine Kinase 99 91 Troponin I 0.424 H* 0.381 H* NT-Pro-B Natriuret Pep 78188 H Total Protein Albumin Globulin Albumin/Globulin Ratio Lipase SARS-CoV-2 (PCR) Influenza A (RT-PCR) Influenza B (RT-PCR) RSV (PCR) Assessment & Plan Assessment and plan (1) Acute on chronic systolic (congestive) heart failure: Status: Acute (2) Noncompliance with medication regimen: Status: Acute (3) Tobacco dependence: Status: Acute (4) Anxiety: Status: Acute (5) ADHD: Status: Acute Assessment & Plan narrative: 1. HFrEF Exacerbation / Non-Compliance With Medications / Non-Ischemic Cardiomyopathy - repeat echocardiogram, last known EF 40% - had 60 mg of Lasix in ED - continuing with scheduled Bumex 1 mg - Is and Os, daily weights - aldactone, ASA, BB, statin 2. Smoker - doesn't need nicotine replacement Tx 3. Anxiety D. - Wellbutrin
--- NOTE | 2023-04-02 06:43 | PC.NURSE ---
Pt. arrived to the floor via wheelchair. Pt. is a&o, denies CP, denies shortness of breath. Telemetry placed. Oriented to room and call light use, instructed to call for help if needed to get up to the bathroom, pt. understood. Bed in lowest position, overbed table in place and call light with pt.
--- NOTE | 2023-04-02 07:31 | P.HP_ITS ---
History of Present Illness History of Present Illness Date Patient Seen: 04/02/23 Chief complaint: sob Narrative: 52 y/o with PMHx of HFrEF, non-ischemic, methamphetamine cardiomyopathy, s/p AICD, and episodic non-compliance with medications, presented to ED with progressive generalized weakness and exertional dyspnea. In addition, he had several episodes of either palpitations or panic attacks, as per the patient but he never had angina. Notes he has had progressive dyspnea, orthopnea and PND for the past few weeks. Has not been taking his cardiac meds other than lasix for about 2.5 years. 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 [facility] Medical History ADHD Anxiety CHF (congestive heart failure) Deep vein thrombosis Erectile dysfunction Kidney stones Low testosterone Poor eyesight Shoulder pain Tobacco dependence Surgical History Anesthesia History of cardiac defibrillator placement Pacemaker Family History Father Diabetes mellitus Mother Cancer Social History household members: none Smoking Status: Current every day smoker Meds Home Medications and Allergies Home Medications Medication Instructions Recorded Confirmed Type aspirin 81 mg tablet,delayed 81 mg PO DAILY 07/27/22 04/02/23 History release (Adult Aspirin Regimen) atorvastatin 40 mg tablet 40 mg PO DAILY #30 tabs 07/27/22 04/02/23 Rx metoprolol tartrate 25 mg tablet 25 mg PO DAILY #30 tabs 07/27/22 04/02/23 Rx sildenafil 100 mg tablet 100 mg PO DAILY PRN sexual 07/27/22 04/02/23 Rx activity #30 tabs spironolactone 25 mg tablet 25 mg PO DAILY #30 tabs 07/27/22 04/02/23 Rx bupropion HCl 150 mg 24 hr tablet, 150 mg PO QAM 03/14/23 04/02/23 History extended release (Wellbutrin XL) hydrocodone 5 mg-acetaminophen 325 1 tab PO Q4-6H PRN pain #10 tabs 03/24/23 04/02/23 Rx mg tablet bumetanide 1 mg tablet 2 mg PO DAILY PRN swelling in legs 04/02/23 04/02/23 History Allergies Allergy/AdvReac Type Severity Reaction Status Date / Time No Known Drug Allergies Allergy Verified 03/24/23 10:47 Review of Systems Review of Systems Narrative: All other systems reviewed with the patient and are negative unless otherwise stated. Exam Vital Signs (past 8 hours): - 04/01/23 23:48 04/01/23 23:50 04/02/23 00:00 Temperature 98.2 F Pulse Rate 101 H 103 H Respiratory Rate 18 Blood Pressure 134/101 H 130/97 H Pulse Oximetry 99 100 Oxygen Delivery Method Room Air 04/02/23 00:00 04/02/23 00:30 04/02/23 00:30 Temperature Pulse Rate 100 H 99 H Respiratory Rate 21 24 Blood Pressure 125/79 Pulse Oximetry 97 Oxygen Delivery Method 04/02/23 01:00 04/02/23 01:00 04/02/23 01:30 Temperature Pulse Rate 96 H 96 H Respiratory Rate 21 14 Blood Pressure 118/92 H Pulse Oximetry 98 95 Oxygen Delivery Method 04/02/23 01:31 04/02/23 01:31 04/02/23 02:04 Temperature Pulse Rate 98 H 100 H Respiratory Rate 26 H Blood Pressure 122/97 H Pulse Oximetry 99 100 Oxygen Delivery Method 04/02/23 02:30 04/02/23 02:40 04/02/23 02:40 Temperature Pulse Rate 94 H 94 H Respiratory Rate 19 27 H Blood Pressure 131/99 H 131/99 H Pulse Oximetry 98 100 Oxygen Delivery Method 04/02/23 03:00 04/02/23 03:01 04/02/23 03:01 Temperature Pulse Rate 95 H 93 H Respiratory Rate 24 25 H Blood Pressure 112/92 H Pulse Oximetry 98 100 Oxygen Delivery Method 04/02/23 03:30 04/02/23 03:31 04/02/23 03:31 Temperature Pulse Rate 90 91 H Respiratory Rate 25 H 24 Blood Pressure 103/60 Pulse Oximetry 98 98 Oxygen Delivery Method 04/02/23 04:00 04/02/23 04:10 04/02/23 04:10 Temperature Pulse Rate 90 88 Respiratory Rate 22 22 Blood Pressure 123/91 H Pulse Oximetry 98 99 Oxygen Delivery Method 04/02/23 04:30 04/02/23 04:31 04/02/23 04:31 Temperature Pulse Rate 89 89 Respiratory Rate 12 18 Blood Pressure 113/90 Pulse Oximetry 97 98 Oxygen Delivery Method 04/02/23 05:00 04/02/23 05:00 04/02/23 05:30 Temperature Pulse Rate 93 H 92 H Respiratory Rate 19 20 Blood Pressure 125/91 H Pulse Oximetry 98 98 Oxygen Delivery Method 04/02/23 05:31 04/02/23 05:31 04/02/23 06:19 Temperature Pulse Rate 89 Respiratory Rate 19 Blood Pressure 120/79 Pulse Oximetry 99 Oxygen Delivery Method Room Air 04/02/23 06:46 Temperature 97.0 F L Pulse Rate 87 Respiratory Rate 22 Blood Pressure 122/93 H Pulse Oximetry 98 Oxygen Delivery Method Oxygen Delivery Method Room Air Narrative Exam Narrative: GEN: conversational dyspnea, slightly anxious HEENT: moist mucous membranes, PERRL NECK: trachea midline CV: regular rate and rhythm, no murmurs PULM: clear bilaterally ABD: soft, nontender, mildly bloated, no organomegaly EXT: warm and well perfused with no edema NEURO: awake, alert, oriented, no focal deficits Objective Labs 04/02/23 14:20 04/02/23 08:10 Labs: Laboratory Results - last 24 hr 04/02/23 04/02/23 04/02/23 00:40 00:50 00:50 WBC 10.1 RBC 5.75 Hgb 17.0 Hct 50.8 MCV 88.3 MCH 29.5 MCHC 33.4 RDW 14.2 Plt Count 207 Neut % (Auto) Not Reportable Lymph % (Auto) Not Reportable Ashley % (Auto) Not Reportable Eos % (Auto) Not Reportable Baso % (Auto) Not Reportable Lymph # (Auto) Not Reportable Ashley # (Auto) Not Reportable Baso # (Auto) Not Reportable Total Counted 100 Seg Neutrophils % 75.0 H Band Neutrophils % 1.0 L Lymphocytes % (Manual) 19.0 L Monocytes % (Manual) 4.0 Eosinophils % (Manual) 1.0 L Neutrophils # (Manual) 7676 H RBC Morphology Normal morphology Sodium 137 Potassium 5.0 Chloride 108 H Carbon Dioxide 21 L BUN 34 H Creatinine 1.13 Estimated GFR > 60 BUN/Creatinine Ratio 30.1 H Glucose 102 H Calcium 8.7 Magnesium 2.0 Total Bilirubin 1.0 AST 116 H ALT 142 H Alkaline Phosphatase 181 H Total Creatine Kinase Troponin I NT-Pro-B Natriuret Pep Total Protein 6.7 Albumin 3.4 L Globulin 3.3 Albumin/Globulin Ratio 1.0 Lipase 70 SARS-CoV-2 (PCR) Negative Influenza A (RT-PCR) Flu a negative Influenza B (RT-PCR) Flu b negative RSV (PCR) Negative 04/02/23 04/02/23 00:50 04:03 WBC RBC Hgb Hct MCV MCH MCHC RDW Plt Count Neut % (Auto) Lymph % (Auto) Ashley % (Auto) Eos % (Auto) Baso % (Auto) Lymph # (Auto) Ashley # (Auto) Baso # (Auto) Total Counted Seg Neutrophils % Band Neutrophils % Lymphocytes % (Manual) Monocytes % (Manual) Eosinophils % (Manual) Neutrophils # (Manual) RBC Morphology Sodium Potassium Chloride Carbon Dioxide BUN Creatinine Estimated GFR BUN/Creatinine Ratio Glucose Calcium Magnesium Total Bilirubin AST ALT Alkaline Phosphatase Total Creatine Kinase 99 91 Troponin I 0.424 H* 0.381 H* NT-Pro-B Natriuret Pep 49429 H Total Protein Albumin Globulin Albumin/Globulin Ratio Lipase SARS-CoV-2 (PCR) Influenza A (RT-PCR) Influenza B (RT-PCR) RSV (PCR) Assessment & Plan Assessment and plan (1) Acute on chronic systolic (congestive) heart failure: Status: Acute (2) Noncompliance with medication regimen: Status: Acute (3) Tobacco dependence: Status: Acute (4) Anxiety: Status: Acute (5) ADHD: Status: Acute Assessment & Plan narrative: # severe acute on chronic HFrEF of 10-15% with multiple LV thrombi -last echo with EF 40% about 3 years ago, now presenting with worsening exertional dypsnea, orthopnea and PND for several weeks. Has AICD in place, has not followed up with cardiology for 3 years and has been off all his cardiac meds since then. -repeat echo 04/02 with EF 10-15%, severe global hypokinesis of LV, multiple LV thrombi largest measuring 2x2.8cm, pacemaker, RVSP 46, severely dilated LA, mod dilated RA, mild MR, mild-mod TR -spoke with [facility] cardiology Dr. Call who rec diuresing with IV lasix 60mg BID, hold BB and transfer if not improving -continue ASA, lipitor, losartan, and spironolactone -start lovenox 1mg/kg and bridge to warfarin for LV thrombi -due to severe LV dysfunction and low EF, I felt it was better he be at a cardiac center with inotropic support vs intra-aortic balloon pump so transfer was initiated -, [facility], [facility], [facility] and all called to attempt transfer -tele # tobacco use -doesn't want nicotine replacement # anxiety -continue home wellbutrin Code status is full code. DVT prophylaxis with Lovenox. Proxy is [place] Teran, mother. I have reviewed home meds and used all available resources to reconcile the home meds. Case discussed with ED physician/APC and patient will be admitted to the hospitalist service for further workup and management. This patient will be admitted as inpateint and will require greater than 2 midnights of hospital time to treat severe HFrEF exacerbation.
[2023-04-02] MEDS: ENOXAPARIN 40 MG/0.4 ML SYRINGE SUBCUT (08:13)
[2023-04-02] MEDS: ASPIRIN EC 81 MG TABLET PO (08:13)
[2023-04-02] MEDS: FUROSEMIDE 40 MG/4 ML VIAL IV (08:13)
[2023-04-02] MEDS: SENNOSIDES 8.6 MG TABLET 17.2 MG PO (08:14)
[2023-04-02] MEDS: buPROPion XL 150 MG TAB PO (08:14)
[2023-04-02] MEDS: ATORVASTATIN 20 MG TABLET 40 MG PO (08:14)
[2023-04-02] MEDS: LOSARTAN 25 MG TABLET 12.5 MG PO (08:15)
[2023-04-02] MEDS: SPIRONOLACTONE 25 MG TABLET 12.5 MG PO (08:18)
[2023-04-02] MEDS: METOPROLOL ER 25 MG TABLET PO (08:18)
[2023-04-02 08:19] LABS: Hematocrit 50.3 % (41-53); Hemoglobin 16.7 g/dL (13.5-17.5); Mean Corpuscular HGB Conc 33.1 % (30-36); Mean Corpuscular Hemoglobin 29.7 PG (26-34); Mean Corpuscular Volume 89.6 fL (80-100); Platelet Count 213 X10^3/uL (150-400); Red Blood Cell Count 5.61 X10^6/uL (4.5-5.9); Red Cell Distribution Width 14.7 % (11.6-14.8); White Blood Cell Count 10.9 X10^3/uL (4.5-11.0)
[2023-04-02 08:28] LABS: Blood Urea Nitrogen 33 mg/dL (9-20); Calcium 8.6 mg/dL (8.4-10.2); Carbon Dioxide 25 mmol/L (22-32); Chloride 104 mmol/L (98-107); Estimated Glomerular Filt Rate > 60 mL/min (>60); Glucose 111 mg/dL (70-100); HEMOLYSIS < 15 (0-50); Sodium 136 mmol/L (137-145)
[2023-04-02 08:37] LABS: Add Manual Diff / Slide Review YES
[2023-04-02 08:48] LABS: Troponin I 0.454 ng/mL (0.01-0.034)
[2023-04-02 09:00] LABS: TSH w/ Reflex to FT4 1.68 uIU/mL (0.47-4.68)
[2023-04-02 09:04] LABS: Neutrophils Absolute Manual 6976 /uL (3000-5900); RBC Morphology Normal Morphology; Total Cells Counted 100
[2023-04-02 09:11] LABS: Hemoglobin A1C% w Est Avg Glu 6.1 % (4.0-6.0)
[2023-04-02 09:12] LABS: Cholesterol 114 mg/dL (140-199); HDL Cholesterol 33 mg/dL (40-60); LDL Cholesterol Calculated 63 mg/dL (<100); Triglycerides 92 mg/dL (35-150)
--- NOTE | 2023-04-02 12:54 | DI.ECHO.S_ITS ---
[facility]---------+ [facility] +---------+ : : [address] [address] : : : : [id number] : : : : Phone: [phone]+ Echocardiogram Report + + :Name: CLAIRE WALLIS Study Date: 04/02/2023 Height: 72 in : [id number] ReadingLocation: Weight: 190 lb : : Gender: Male BSA: 2.1 m2 : :: 1970 Age: 52 yrs BP: 122/93 mmHg: :Reason For Study: CHF : : Performed By: Nabeel Alejandro : :Referring: UNSPECIFIED : + + Interpretation Summary The left ventricle is markedly dilated. The ejection fraction is estimated to be 10-15%. There is severe global hypokinesis of the left ventricle. There are mulyiple thrombi noted in the apex of the left ventricle- the largest measuring 2.0 cm x 2.8 cm. Diastolic parameters suggest a pseudonormalization pattern, consistent with probable elevated filling pressures. The right ventricle is normal size. There is a pacemaker lead in the right ventricle. Right ventricular systolic function is moderately reduced. The right ventricular systolic pressure is estimated to be at least 46 mmHg based on an estimated right atrial pressure of 15 mm Hg. The left atrium is severely dilated. The right atrium is moderately dilated. There is mild mitral regurgitation. There is mild to moderate tricuspid regurgitation. The aortic root is normal size. Procedure: A two-dimensional transthoracic echocardiogram with color flow and Doppler was performed. The study quality was technically good. There is no prior echocardiogram noted for this patient. The patient was in normal sinus rhythm during the exam. Left Ventricle: There is normal left ventricular wall thickness. The left ventricle is markedly dilated. There are mulyiple thrombi noted in the apex of the left ventricle- the largest measuring 2.0 cm x 2.8 cm. The ejection fraction is estimated to be 10-15%. There is severe global hypokinesis of the left ventricle. Diastolic parameters suggest a pseudonormalization pattern, consistent with probable elevated filling pressures. Right Ventricle: The right ventricle is normal size. There is a pacemaker lead in the right ventricle. Right ventricular systolic function is moderately reduced. Atria: The left atrium is severely dilated. The right atrium is moderately dilated. There is no Doppler evidence for an atrial septal defect. Mitral Valve: The mitral valve is normal in structure and function. There is mild mitral regurgitation. Aortic Valve: The aortic valve is trileaflet. The aortic valve opens well. No aortic regurgitation is present. Tricuspid Valve: The tricuspid valve is normal in structure but is abnormal in function. There is mild to moderate tricuspid regurgitation. The right ventricular systolic pressure is estimated to be at least 46 mmHg based on an estimated right atrial pressure of 15 mm Hg. Pulmonic Valve: The pulmonic valve is normal in structure and function. There is trace pulmonic regurgitation. Great Vessels: The aortic root is normal size. The dimensions of the ascending aorta are normal. The pulmonary artery is normal size. The IVC is dilated (diameter is greater than 2.1 cm) and it collapses less than 50% with a sniff. This suggests a high right atrial pressure of 15 mm Hg. Pericardium/ Pleura There is no pericardial effusion. There is no pleural effusion. MMode/2D Measurements & Calculations LVIDd: 7.8 cm LVOT diam: 2.4 cm LVIDs: 7.6 cm Ao root diam: 3.3 cm FS: 3.1 % asc Aorta Diam: 3.2 cm EPSS: 3.3 cm Ao Arch Diam (Prox Trans): 2.5 cm IVSd: 1.1 cm LVPWd: 0.92 cm LV erwin. diameter/BSA (cm/m^2): 3.8 LV sys. diameter/BSA (cm/m^2): 3.6 LA A2 area: 37.6 cm2 RA long axis: 5.8 cm LA A4 area: 28.0 cm2 RA area: 25.5 cm2 LA length (vol): 6.9 cm RA vol: 94.9 ml LA vol: 129.0 ml RA : 45.5 ml/m2 LA vol index: 61.9 ml/m2 IVC diam: 2.7 cm TAPSE: 1.5 cm Doppler Measurements & Calculations Ao V2 max: 80.0 cm/sec LVOT Max Miles: 47.7 cm/sec Ao V2 mean: 63.1 cm/sec LV V1 max P.91 mmHg Ao max P.6 mmHg LV V1 VTI: 7.0 cm Ao mean P.7 mmHg RUSS(I,D): 2.8 cm2 Ao V2 VTI: 11.3 cm RUSS(V,D): 2.7 cm2 sev ratio: 0.62 RUSS indexed to BSA (cm^2/m^2): 1.4 MV E max miles: 75.2 cm/sec TR max miles: 279.6 cm/sec MV A max miles: 56.7 cm/sec TR max P.3 mmHg MV E/A: 1.3 PA V2 max: 46.6 cm/sec Med Peak E' Miles: 3.5 cm/sec PA V2 mean: 30.7 cm/sec E/E' med: 21.6 PA mean P.43 mmHg Lat Peak E' Miles: 2.1 cm/sec PA pr(Accel): 49.9 mmHg E/E' lat: 35.3 E/e' average: 28.5 MV dec time: 0.10 sec SV(LVOT): 32.0 ml Reading Physician:02:19 PM
--- NOTE | 2023-04-02 14:08 | CM.DANOTE ---
DCP/Assessment: Reviewed chart. Patient is a 52yr old male admitted to [facility] with CHF exacerbation. PCP is Dr. Ling. Primary payor is 1) [employer] 2)Medicaid. Met with patient this AM explained CM team role. Patient reports that he was recently cut off of disability and food stamps. Patient believes it's because of his lack of follow up. Notes report patient with h/o meth use and non-compliance with medication regimen. Patient underwent ECHO today and it is currently suggested that patient will need to be transferred for higher level of care. TEAM PRIMARY CARE PHYSICIAN encouraged follow up with PCP upon discharge and provided disability resources for assistance with getting reinstated with services. P: Anticipate transfer to higher level of care. [facility] Discharge Planning/Care Management CM Discharge Assessment Start: 04/02/23 14:01 Freq: Status: Active Protocol: Document 04/02/23 14:01 [facility] (Rec: 04/02/23 14:08 [facility] [id number]) Discharge Planning Assessment Assigned Production Assistant NICOLÁS Meyers Contact Information Angelo Lopez (friend) ph# Advance Directives? No History Provided By Patient,Medical Record Prior Living Arrangements Apartment/Condo Household Members none Independent with ADL's Yes Is patient alert and oriented? Yes Caregiver for Another No Comment Patient reports that he is I with all ADL's at this time. Comment It is anticipated that patient will transfer to higher level of care. Patient with CHF and ECHO done today. Barriers to Discharge No Comment If patient remains at I.. may need assistance with f/u appointment to PCP/Dr. Ling. Patient reports that he has been kicked off SSI and food stamps. He believes this is because of his lack of follow through. Discharge Plan Transfer to Higher Level of Care Referrals Initiated Other Additional Comment Resources for PCP f/u provided . Patient aware that he will need to follow up with state to get services reinstated. Whiteboard Updated in Patient Room with Yes name and ext. # of Production Assistant Review Status In Process Next Review Type Continued Stay Review
--- NOTE | 2023-04-02 14:29 | CM.DPC ---
DCP Continued: CONTROL SYSTEMS DESIGNER entered room and introduced self and role. Patient was laying in bed tearful and did not speak much during interaction. CONTROL SYSTEMS DESIGNER provided patient list of resources for when he d/c from here, and information for a PCP. Patient accepted the information and appeared grateful. CONTROL SYSTEMS DESIGNER updated white board with phone number. Plan: patient likely to transfer to a higher level of care. CM team will continue to follow as needed. NICOLÁS Engle
[2023-04-02 14:31] LABS: Hematocrit 50.8 % (41-53)
[2023-04-02 14:34] LABS: Platelet Count 237 X10^3/uL (150-400)
[2023-04-02 14:36] LABS: INR 1.7 (0.9-1.3); Prothrombin Time 19.4 SECONDS (10.1-12.7)
[2023-04-02 14:39] LABS: PTT Partial Thromboplastin Tim 33 SECONDS (26-36)
[2023-04-02] MEDS: ENOXAPARIN 100 MG/ML SYRINGE 90 MG SUBCUT ×2 (14:39→20:50)
--- NOTE | 2023-04-02 15:43 | PC.NURSE ---
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
[2023-04-02 16:35] LABS: MRSA (Nasal) PCR Not Detected (Not Detect)
[2023-04-02] MEDS: WARFARIN 5 MG TABLET 2.5 MG PO (16:38)
--- NOTE | 2023-04-02 20:06 | RT ---
Addendum entered by Rachana Griggs 04/02/23 20:11: At time of 2005 on , pt removed himself from CPAP. Original Note: Placed CPAP on pt. After about 2 minutes, the pt removed the mask stating that he was having a hard time breathing and refused CPAP. Pt is back on 3L LINDA RN Verna notified. Will cont. to monitor.
[2023-04-02] MEDS: HYDROCODONE/ACET 5/325 TABLET 1 TAB PO (20:49)
[2023-04-02] MEDS: FUROSEMIDE 40 MG/4 ML VIAL 60 MG IV (20:50)
[2023-04-02] MEDS: TRAZODONE 50 MG TABLET PO (20:50)
[2023-04-02 21:31] LABS: UR Morphine/Opiate cutoff 300 Negative (Negative); Ur Creatinine Normal (Normal); Ur Specific Gravity Normal (Normal); Urine Amphetamines Positive (Negative); Urine Barbiturates Negative (Negative); Urine Benzodiazepines Negative (Negative); Urine Cocaine Negative (Negative); Urine MDMA Negative (Negative); Urine Methadone Negative (Negative); Urine Methamphetamines Positive (Negative); Urine Oxycodone Negative (Negative); Urine Phencyclidine Negative (Negative); Urine Tetrahydrocannabinol Positive (Negative); Urine Tricyclic Antidepressant Negative (Negative); Urine pH Normal (Normal)
[2023-04-03] VITALS (55 sets, daily range): BP systolic 99–129; BP diastolic 66–94; PULSE 79–93; RESP 10–24; TEMP 36.3–36.8; O2SAT 89–100
[2023-04-03 05:03] LABS: Add Manual Diff / Slide Review NO; Basophils Absolute Auto 200 /uL (0-100); Basophils Percent Auto 1.3 % (0-2); Eosinophils Absolute Auto 200 /uL (0-450); Eosinophils Percent Auto 1.4 % (2-4); Hematocrit 51.8 % (41-53); Hemoglobin 16.7 g/dL (13.5-17.5); Lymphocytes Absolute Auto 3000 /uL (1100-4500); Lymphocytes Percent Auto 25.1 % (25-40); Mean Corpuscular HGB Conc 32.3 % (30-36); Mean Corpuscular Hemoglobin 28.8 PG (26-34); Monocytes Absolute Auto 800 /uL (0-900); Monocytes Percent Auto 6.8 % (3-14); Neutrophils Absolute Auto 7700 /uL (1500-7000); Neutrophils Percent Auto 65.4 % (50-75); Platelet Count 240 X10^3/uL (150-400); Red Blood Cell Count 5.82 X10^6/uL (4.5-5.9); Red Cell Distribution Width 14.3 % (11.6-14.8); White Blood Cell Count 11.8 X10^3/uL (4.5-11.0)
[2023-04-03 05:08] LABS: BUN Creatinine Ratio 29.2 (6-22); Blood Urea Nitrogen 38 mg/dL (9-20); Calcium 8.5 mg/dL (8.4-10.2); Carbon Dioxide 23 mmol/L (22-32); Chloride 102 mmol/L (98-107); Estimated Glomerular Filt Rate > 60 mL/min (>60); Glucose 100 mg/dL (70-100); HEMOLYSIS 31 (0-50); Potassium 5.2 mmol/L (3.4-5.1); Sodium 133 mmol/L (137-145)
[2023-04-03] MEDS: FUROSEMIDE 60 MG in SODIUM CHLORIDE 0.9% 50 ML 112 MG IV ×2 (06:36→17:14)
[2023-04-03] MEDS: buPROPion XL 150 MG TAB PO (08:50)
[2023-04-03] MEDS: ATORVASTATIN 20 MG TABLET 40 MG PO (08:50)
[2023-04-03] MEDS: LOSARTAN 25 MG TABLET 12.5 MG PO (08:50)
[2023-04-03] MEDS: ASPIRIN EC 81 MG TABLET PO (08:50)
[2023-04-03] MEDS: ENOXAPARIN 100 MG/ML SYRINGE 90 MG SUBCUT ×2 (08:51→20:02)
[2023-04-03] MEDS: SPIRONOLACTONE 25 MG TABLET 12.5 MG PO (08:51)
[2023-04-03] MEDS: SODIUM ZIRCONIUM CYCLOSILICATE 10 GM POWD.PACK PO (10:27)
--- NOTE | 2023-04-03 11:55 | ONC.MSW ---
DCP Cont. Met with pt bedside to discuss cont. d/c plan. Pt is pending transfer to , waiting for bed availability. Continues to have SOB at rest, presents as mildly anxious, was alert and able to engage in [employer] visit. [employer] shared with pt that we are aware of his recent methamphetamine use, as it showed positive on his INPT tox screen. He acknowledged that this was correct, and that he had falsely told the ER/INPT staff that it had been 4-years since he has used. [employer] encouraged him to consider tx options once he is stable and able to do this, as it is contributing to his very serious heart disease progression. He nodded that he understood, and would re-evaluate once he is outpatient status again. No further needs identified for today. DCP to continue to monitor for plan and d/c needs.
[2023-04-03 15:25] LABS: BUN Creatinine Ratio 29.3 (6-22); Blood Urea Nitrogen 36 mg/dL (9-20); Calcium 8.4 mg/dL (8.4-10.2); Carbon Dioxide 28 mmol/L (22-32); Chloride 100 mmol/L (98-107); Estimated Glomerular Filt Rate > 60 mL/min (>60); Glucose 110 mg/dL (70-100); HEMOLYSIS 35 (0-50); Potassium 4.1 mmol/L (3.4-5.1); Sodium 135 mmol/L (137-145)
--- NOTE | 2023-04-03 17:26 | P.DS_ITS ---
History of Present Illness History of Present Illness Date Patient Seen: 04/02/23 Chief complaint: sob Narrative: 52 y/o with PMHx of HFrEF, non-ischemic, methamphetamine cardiomyopathy, s/p AICD, and episodic non-compliance with medications, presented to ED with progressive generalized weakness and exertional dyspnea. In addition, he had several episodes of either palpitations or panic attacks, as per the patient but he never had angina. Notes he has had progressive dyspnea, orthopnea and PND for the past few weeks. Has not been taking his cardiac meds other than lasix for about 2.5 years. 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 Discharge Providers Provider Date of admission: 04/02/23 05:30 Discharge Date: 04/03/23 Primary care physician: Nick Ling DO Discharge provider: Oswaldo Boateng DO Summary Hospital Course Discharge Diagnosis: # severe acute on chronic HFrEF of 10-15% with multiple LV thrombi -last echo with EF 40% about 3 years ago, now presenting with worsening e xertional dypsnea, orthopnea and PND for several weeks. Has AICD in place, has not followed up with cardiology for 3 years and has been off all his cardiac meds since then. -repeat echo 04/02 with EF 10-15%, severe global hypokinesis of LV, multiple LV thrombi largest measuring 2x2.8cm, pacemaker, RVSP 46, severely dilated LA, mod dilated RA, mild MR, mild-mod TR -spoke with [facility] cardiology Dr. Call who rec diuresing with IV lasix 60mg BID, hold BB and transfer if not improving. UO 7.4L total, and net neg -4.8L. -continue ASA, lipitor, losartan, and spironolactone -start lovenox 1mg/kg for LV thrombi -due to severe LV dysfunction and low EF, I felt it was better he be at a cardiac center with cardiology support so transfer was initiated -accepted by Dr. Benoit validation manager at # methamphetamine abuse -patient claims no meth use for 4 years, went to treatment for it 5 years ago -urine drug screen positive for meth and THC on admission # tobacco use -doesn't want nicotine replacement # anxiety -continue home wellbutrin Hospital Course: Admitted for weeks of worsening dyspnea, fatigue, PND and orthopnea. Found to have acute systolic/diastolic CHF with EF 10-15% and multiple LV thrombi. Had been off his cardiac meds for 2.5 years. Placed back on GDMT and lovenox for clots. BB held until euvolemic. Diuresed well. Accepted to by Dr. Benoit cardiology for cardiology management. Exam Vital Signs (past 8 hours): - 04/03/23 11:00 04/03/23 10:00 04/03/23 10:00 Temperature Pulse Rate 79 Respiratory Rate Blood Pressure 110/75 Pulse Oximetry 92 Oxygen Delivery Method Nasal Cannula 04/03/23 10:15 04/03/23 11:00 04/03/23 11:15 Temperature 98.2 F Pulse Rate 79 86 83 Respiratory Rate Blood Pressure Pulse Oximetry 92 99 98 Oxygen Delivery Method 04/03/23 12:00 04/03/23 12:00 04/03/23 12:15 Temperature Pulse Rate 79 82 Respiratory Rate Blood Pressure 119/86 Pulse Oximetry 96 97 Oxygen Delivery Method 04/03/23 13:00 04/03/23 13:00 04/03/23 13:15 Temperature 98.1 F Pulse Rate 79 82 Respiratory Rate 20 Blood Pressure 99/69 Pulse Oximetry 95 97 Oxygen Delivery Method 04/03/23 15:00 Temperature Pulse Rate Respiratory Rate Blood Pressure Pulse Oximetry Oxygen Delivery Method Nasal Cannula Oxygen Delivery Method Nasal Cannula Oxygen Flow Rate 3 Narrative Exam Narrative: GEN: conversational dyspnea, anxious HEENT: moist mucous membranes, PERRL NECK: trachea midline CV: regular rate and rhythm, no murmurs PULM: clear bilaterally ABD: soft, nontender, mildly bloated, no organomegaly EXT: warm and well perfused with no edema NEURO: awake, alert, oriented, no focal deficits Objective Labs 04/03/23 04:25 04/03/23 15:07 Labs: Laboratory Results - last 24 hr 04/02/23 04/03/23 04/03/23 21:04 04:25 04:25 WBC 11.8 H RBC 5.82 Hgb 16.7 Hct 51.8 MCV 89.0 MCH 28.8 MCHC 32.3 RDW 14.3 Plt Count 240 Neut % (Auto) 65.4 Lymph % (Auto) 25.1 [place] % (Auto) 6.8 Eos % (Auto) 1.4 L Baso % (Auto) 1.3 Neut # (Auto) 7700 H Lymph # (Auto) 3000 [place] # (Auto) 800 Eos # (Auto) 200 Baso # (Auto) 200 H Sodium 133 L Potassium 5.2 H Chloride 102 Carbon Dioxide 23 BUN 38 H Creatinine 1.30 H Estimated GFR > 60 BUN/Creatinine Ratio 29.2 H Glucose 100 Calcium 8.5 U Opiates 300ng/mL cut Negative Ur Oxycodone Screen Negative Urine Methadone Screen Negative Ur Barbiturates Screen Negative U Tricyclic Antidepress Negative Ur Phencyclidine Scrn Negative Ur Amphetamines Screen Positive H U Methamphetamines Scrn Positive H Ur MDMA Scrn (Ecstasy) Negative U Benzodiazepines Scrn Negative Urine Cocaine Screen Negative U Marijuana (THC) Screen Positive H 04/03/23 15:07 WBC RBC Hgb Hct MCV MCH MCHC RDW Plt Count Neut % (Auto) Lymph % (Auto) [place] % (Auto) Eos % (Auto) Baso % (Auto) Neut # (Auto) Lymph # (Auto) [place] # (Auto) Eos # (Auto) Baso # (Auto) Sodium 135 L Potassium 4.1 Chloride 100 Carbon Dioxide 28 BUN 36 H Creatinine 1.23 Estimated GFR > 60 BUN/Creatinine Ratio 29.3 H Glucose 110 H Calcium 8.4 U Opiates 300ng/mL cut Ur Oxycodone Screen Urine Methadone Screen Ur Barbiturates Screen U Tricyclic Antidepress Ur Phencyclidine Scrn Ur Amphetamines Screen U Methamphetamines Scrn Ur MDMA Scrn (Ecstasy) U Benzodiazepines Scrn Urine Cocaine Screen U Marijuana (THC) Screen PFSH Medical History ADHD Anxiety CHF (congestive heart failure) Deep vein thrombosis Erectile dysfunction Kidney stones Low testosterone Poor eyesight Shoulder pain Tobacco dependence Surgical History Anesthesia History of cardiac defibrillator placement Pacemaker Family History Father Diabetes mellitus Mother Cancer Social History household members: none Smoking Status: Current every day smoker Discharge Plan Discharge Plan Patient Disposition: er Acute Care Hospital Discharge Data Primary Care Provider: Nick Ling
--- NOTE | 2023-04-03 20:38 | PC.NURSE ---
patient left floor with transport at 2014. no complaints of chest pain, vital signs stable. received ordered Lovenox prior to transfer. Report called to and given to EDILMA Pineda.
== END 2023-04-03 20:15 | disposition short-term general hospital (02) | DRG 194 ==
LOC: ED 04-02 00:21 → AC 04-02 05:31 → ICU 04-02 18:53 → AC 12-12 07:18
PROVIDERS: Student in an Organized Health Care Education/Training Program; Admitting Provider Internal Medicine; Emergency Provider Emergency Medicine; PCP Family Medicine; Referring Provider Emergency Medicine; Visit Provider Internal Medicine
DX: I50.43 Acute on chronic combined systolic (congestive) and diastolic (congestive) heart failure (principal); I24.0 Acute coronary thrombosis not resulting in myocardial infarction; F17.210 Nicotine dependence, cigarettes, uncomplicated; T43.651S Poisoning by methamphetamines accidental (unintentional), sequela; I42.7 Cardiomyopathy due to drug and external agent; Z91.148 Patient's other noncompliance with medication regimen for other reason; F41.9 Anxiety disorder, unspecified; F90.9 Attention-deficit hyperactivity disorder, unspecified type; Z95.810 Presence of automatic (implantable) cardiac defibrillator; F15.10 Other stimulant abuse, uncomplicated; Z11.52 Encounter for screening for COVID-19
CPT/HCPCS: 87635; 87400 ×2; 87420; 0241U; 36415; 71045; 71275; 80048; 80053; 80061; 80305; 82550; 83036; 83690; 83735; 83880; 84443; 84484; 85007; 85014; 85025; 85049; 85610; 85730; 87797; 93005; 93010; 93306; 94660; 96365; 99284; G0378; J1650; J1940; Q9967

== ENCOUNTER → 2023-08-18 15:55 | Outpatient (CLI) | payer OTHER, MEDICAID, SELFPAY ==
[2023-04-02 06:07] VITALS: BMI 26.2
[2023-08-18 16:25] LABS: Urine Volume 10mL (spun)
[2023-08-18 17:40] LABS: Add Manual Diff / Slide Review NO; Basophils Absolute Auto 100 /uL (0-100); Eosinophils Absolute Auto 200 /uL (0-450); Eosinophils Percent Auto 2.3 % (2-4); Hematocrit 45.1 % (41-53); Lymphocytes Absolute Auto 1400 /uL (1100-4500); Lymphocytes Percent Auto 21.7 % (25-40); Mean Corpuscular HGB Conc 33.4 % (30-36); Mean Corpuscular Volume 90.1 fL (80-100); Monocytes Absolute Auto 500 /uL (0-900); Monocytes Percent Auto 8.1 % (3-14); Neutrophils Absolute Auto 4400 /uL (1500-7000); Neutrophils Percent Auto 66.9 % (50-75); Platelet Count 197 X10^3/uL (150-400); Red Blood Cell Count 5.01 X10^6/uL (4.5-5.9); Red Cell Distribution Width 14.6 % (11.6-14.8); White Blood Cell Count 6.6 X10^3/uL (4.5-11.0)
[2023-08-18 17:56] LABS: Hemoglobin A1C% w Est Avg Glu 5.7 % (4.0-6.0)
[2023-08-18 17:59] LABS: Appearance Urine UA CLEAR; Bilirubin Urine UA NEGATIVE (NEGATIVE); Color Urine UA YELLOW; Glucose Urine UA 1+ g/dL (Negative); Ketones Urine UA NEGATIVE (NEGATIVE); Leukocyte Esterase Urine UA NEGATIVE (NEGATIVE); Nitrite Urine UA NEGATIVE (Negative); Occult Blood Urine UA NEGATIVE (Negative); Protein Urine UA NEGATIVE (Negative); Specific Gravity Urine UA 1.025 (1.000-1.035); pH Urine UA 5.5 (4.5-8.0)
[2023-08-18 18:10] LABS: Alanine Aminotransferase 27 IU/L (<50); Albumin Globulin Ratio 1.3 (1.0-2.8); Alkaline Phosphatase 62 U/L (38-126); Aspartate Aminotransferase 31 IU/L (17-59); BUN Creatinine Ratio 25.2 (6-22); Bilirubin Total 0.6 mg/dL (0.2-1.3); Blood Urea Nitrogen 27 mg/dL (9-20); Calcium 9.6 mg/dL (8.4-10.2); Carbon Dioxide 27 mmol/L (22-32); Chloride 104 mmol/L (98-107); Estimated Glomerular Filt Rate > 60 mL/min (>60); Globulin 3.1 g/dL (1.7-4.1); Glucose 64 mg/dL (70-100); HEMOLYSIS < 15 (0-50); Lipase 68 U/L (23-300); Potassium 4.6 mmol/L (3.4-5.1); Sodium 136 mmol/L (137-145); Total Protein 7.1 g/dL (6.3-8.2)
[2023-08-18 18:13] LABS: Bacteria Urine None Seen; Culture Indicated Urine Cult Not Indicated; RBC Urine None Seen (0-5/HPF); Squamous Epithelial Cell Urine None Seen (0-5/HPF); WBC Urine 0-1/HPF (0-5/HPF)
== END ==
PROVIDERS: PCP Family Medicine; Referring Provider Family Medicine; Visit Provider Family Medicine
DX: R73.01 Impaired fasting glucose (principal); R10.32 Left lower quadrant pain
CPT/HCPCS: 36415; 80053; 81001; 83036; 83690; 85025

== ENCOUNTER → 2023-10-05 17:13 | Outpatient (CLI) | payer OTHER, MEDICAID, SELFPAY ==
[2023-04-02 06:07] VITALS: BMI 26.2
[2023-10-05 18:11] LABS: Influenza A - CEPHEID Flu A NEGATIVE (NEGATIVE); Influenza B - CEPHEID Flu B NEGATIVE (NEGATIVE); Respiratory Syncytial Virus Negative (Negative)
[2023-10-05 18:12] LABS: COVID-19 CEPHEID 4-PLEX PCR Negative (Negative)
== END ==
PROVIDERS: PCP Family Medicine; Visit Provider Physician Assistant Surgical
DX: R05.9 Cough, unspecified (principal)
CPT/HCPCS: 87635; 87400 ×2; 87420; 0241U

== ENCOUNTER 2024-01-19 02:43 | Observation (INO) | payer OTHER, MEDICAID, SELFPAY ==
[2023-04-02 06:07] VITALS: BMI 26.2
[2024-01-19] VITALS (46 sets, daily range): BP systolic 86–124; BP diastolic 55–90; PULSE 66–79; RESP 9–29; TEMP 35.6–36.7; O2SAT 90–99; BMI 26.4; BMI 29.2
--- NOTE | 2024-01-19 02:47 | DI.RAD.S_ITS ---
PROCEDURE: XR CHEST 1V INDICATIONS: chest pain TECHNIQUE: One view of the chest was acquired. COMPARISON: [facility], CR, XR CHEST 1V, 04/02/2023, 0:21. [facility], CR, XR CHEST 2V, 03/07/2023, 2:26. FINDINGS: Surgical changes and devices: Left chest wall generator with cardiac leads. Lungs and pleura: Lungs are clear. No pleural effusions or pneumothorax. Mediastinum: Mediastinal contours appear normal. Heart size is normal. Bones and chest wall: No suspicious bony lesions. Overlying soft tissues appear unremarkable. IMPRESSION: No acute cardiopulmonary abnormality is seen. Agree with preliminary report. Dictated by: Jose Rogers M.D. on 01/19/2024 at 8:30 Approved by: Jose Rogers M.D. on 01/19/2024 at 8:31
[2024-01-19] MEDS: FUROSEMIDE 40 MG/4 ML VIAL 20 MG IV ×2 (03:05→07:25)
[2024-01-19] MEDS: SODIUM CHLORIDE 0.9% 1,000 ML 150 ML IV (03:05)
--- NOTE | 2024-01-19 03:09 | EKG_ITS ---
[address] [address] Test Date: 2024-01-19 Pat Name: Mike Pereira Department: [facility] Room: Gender: Male Greenskeeper: : 1970 Requested By: Order Number: [id number] Reading MD: Milad Barahona Measurements Intervals [place] Rate: 70 P: 41 SC: 206 QRS: -65 QRSD: 158 T: 112 QT: 482 QTc: 520 Interpretive Statements Normal sinus rhythm Left bundle branch block Electronically Signed On 01-21-2024 9:43:39 PDT by Milad Barahona
[2024-01-19 03:28] LABS: Add Manual Diff / Slide Review NO; Basophils Absolute Auto 100 /uL (0-100); Eosinophils Absolute Auto 100 /uL (0-450); Hematocrit 58.6 % (41-53); Lymphocytes Absolute Auto 1600 /uL (1100-4500); Lymphocytes Percent Auto 18.2 % (25-40); Mean Corpuscular HGB Conc 32.4 % (30-36); Mean Corpuscular Hemoglobin 30.2 PG (26-34); Mean Corpuscular Volume 93.2 fL (80-100); Monocytes Absolute Auto 700 /uL (0-900); Monocytes Percent Auto 8.1 % (3-14); Neutrophils Absolute Auto 6100 /uL (1500-7000); Neutrophils Percent Auto 71.7 % (50-75); Platelet Count 207 X10^3/uL (150-400); Red Blood Cell Count 6.29 X10^6/uL (4.5-5.9); Red Cell Distribution Width 15.7 % (11.6-14.8); White Blood Cell Count 8.6 X10^3/uL (4.5-11.0)
--- NOTE | 2024-01-19 04:01 | ED_ITS ---
HPI - SOB/Dyspnea <Jason Lees MD - Last Filed: 01/19/24 16:09> General Chief Complaint: Shortness of Breath/Dyspnea Stated Complaint: CHF symptoms Time Seen by Provider: 01/19/24 02:45 Source: patient and EMS Mode of arrival: EMS Limitations: no limitations History of Present Illness HPI Narrative: 53-year-old male with history of CHF, arrived by EMS with shortness of breath, history of polysubstance abuse using methamphetamine and cocaine, last use within this week of cocaine, prior cardiomyopathy felt to be drug related, he recalls having ejection fraction last summer 15% and was evaluated [facility] for about 10 days, had placement of left chest AICD, improvement of his ejection fraction, taking Lasix, we will be seeing a new press tool maker in the next week or 2. He presented to [facility] on 01/12/2024 with shortness of breath, recalls communication of the ED physician with Cardiology on-call, plan was to admit him for cardiac echo, baby decided to leave, and left against medical advice. He denies missing any recent doses. He denies any chest pain. States that he has blood clots in his heart, for which he is taking Eliquis chronic anticoagulation Related Data Home Medications Medication Instructions Recorded Confirmed sacubitril 24 mg-valsartan 26 mg 1 tab PO BID 05/05/23 09/22/23 tablet torsemide 20 mg tablet 20 mg PO .qod 07/25/23 09/22/23 Previous Rx's Medication Instructions Recorded atorvastatin 40 mg tablet 40 mg PO DAILY #90 tabs 04/10/23 bupropion HCl 150 mg 24 hr tablet, 150 mg PO QAM #90 tabs 04/10/23 extended release (Wellbutrin XL) nicotine 14 mg/24 hr daily 1 patch transdermal DAILY #28 ea 04/10/23 transdermal patch sildenafil 100 mg tablet 100 mg PO DAILY PRN sexual 04/10/23 activity #30 tabs apixaban 5 mg tablet (Eliquis) See Rx Instructions PO BID #60 tabs 09/22/23 prazosin 1 mg capsule 1 mg PO ONCE PM #90 caps 09/22/23 carvedilol 12.5 mg tablet 12.5 mg PO BID #180 tabs 01/10/24 empagliflozin 10 mg tablet 10 mg PO DAILY #90 tabs 01/10/24 metoprolol tartrate 25 mg tablet 25 mg PO DAILY #90 tabs 01/10/24 Allergies Allergy/AdvReac Type Severity Reaction Status Date / Time No Known Drug Allergies Allergy Verified 09/22/23 11:00 Review of Systems <Jason Lees MD - Last Filed: 01/19/24 16:09> Review of Systems Narrative: per HPI Patient History <Jason Lees MD - Last Filed: 01/19/24 16:09> Medical History (Updated 01/19/24 @ 12:49 by Shanae Mars DO) Night terror IFG (impaired fasting glucose) Pulmonary emboli Methamphetamine use Poor eyesight Anxiety ADHD Shoulder pain Kidney stones Low testosterone Deep vein thrombosis Erectile dysfunction Tobacco dependence CHF (congestive heart failure) Surgical History (Updated 07/25/23 @ 14:40 by Nick Ling DO) Status post implantation of automatic cardioverter/defibrillator (AICD) Anesthesia History of cardiac defibrillator placement Pacemaker Family History Father Diabetes mellitus Mother Cancer Social History household members: none Smoking Status: Current every day smoker alcohol intake: never Smoking Status: Current every day smoker tobacco type: cigarettes alcohol intake frequency: holidays/special occasions only Substance Use Type: marijuana and crack/cocaine Exam <Jason Lees MD - Last Filed: 01/19/24 16:09> Narrative Exam Narrative: GENERAL: Well-developed patient, in mild distress. HEAD: Atraumatic. Normocephalic. EYES: Pupils equal round and reactive. Extraocular motions intact. No scleral icterus. No injection or drainage. ENT: Nose without bleeding, purulent drainage. Throat without erythema, tonsillar hypertrophy or exudate. Airway patent. NECK: Trachea midline. Non tender CARDIOVASCULAR: Regular rate and rhythm without murmurs, gallops, or rubs. RESPIRATORY: Clear to auscultation. Breath sounds equal bilaterally. No wheezes, rales, or rhonchi. Left upper anterior chest AICD, site appears nontender without redness or crepitance or fluctuance GASTROINTESTINAL: Abdomen soft, non-tender, nondistended. EXTREMITIES: Slight pedal edema to the ankles bilateral, warm feet/toes, appear well-perfused BACK: Nontender without deformity or crepitance. No flank tenderness. NEURO: AOx3. SKIN: No rash or erythema of visible areas Initial Vital Signs Initial Vital Signs: Vital Signs Temperature 97.7 F 01/19/24 02:50 Pulse Rate 77 01/19/24 02:50 Respiratory Rate 20 01/19/24 02:50 Blood Pressure 107/72 01/19/24 02:50 Pulse Oximetry 97 01/19/24 02:50 Oxygen Delivery Method Room Air 01/19/24 02:50 <Shanae Mars DO - Last Filed: 01/19/24 14:57> Initial Vital Signs Initial Vital Signs: Vital Signs Temperature 97.7 F 01/19/24 02:50 Pulse Rate 77 01/19/24 02:50 Respiratory Rate 20 01/19/24 02:50 Blood Pressure 107/72 01/19/24 02:50 Pulse Oximetry 97 01/19/24 02:50 Oxygen Delivery Method Room Air 01/19/24 02:50 Course <Jason Lees MD - Last Filed: 01/19/24 16:09> Orders Ordered: ED Orders 01/19/24 07:11 EC echo complete with contrast Stat 01/19/24 08:25 Troponin & CK Cardiac Panel Stat Hydrocodone Bitart/Acetaminophen (Hydrocodone/Acet 5/325 Tablet) 1 tab PO Q4H PRN PRN Reason: Pain, Moderate (4-6) Last Admin: 01/19/24 16:02 Dose: 1 tab Documented By: JORGE Atorvastatin Calcium (Atorvastatin 20 Mg Tablet) 40 mg PO DAILY ALEXIS Sodium Chloride (Normal Saline 0.9%) 1,000 mls @ 150 mls/hr IV CONT [facility] Last Infusion: 01/19/24 07:17 Dose: Infused Documented By: Admin: 01/19/24 03:05 Dose: 150 mls/hr Documented By: REGI Furosemide 60 mg/ Sodium (Chloride) 56 mls @ 112 mls/hr IV Q12H [facility] Last Infusion: 01/19/24 16:02 Dose: Infused Documented By: Admin: 01/19/24 15:24 Dose: 112 mls/hr Documented By: JORGE Metoprolol Tartrate (Metoprolol Ir 25 Mg Tablet) 25 mg PO DAILY ALEXIS Morphine Sulfate (Morphine 2 Mg/Ml Inj) 2 mg IV Q2HR PRN PRN Reason: Pain, Moderate (4-6) Last Admin: 01/19/24 14:39 Dose: 2 mg Documented By: JORGE Naloxone HCl (Naloxone 0.4 Mg/Ml Vial) 0.2 mg IV Q2MIN PRN PRN Reason: Opiate Reversal Non-Formulary Medication (Sacubitril-Valsartan) 1 tab PO BID ALEXIS Ondansetron HCl (Ondansetron 4 Mg/2 Ml Inj) 4 mg IV Q8HR PRN PRN Reason: Nausea And Vomiting Last Admin: 01/19/24 16:02 Dose: 4 mg Documented By: JORGE Discontinued Medications Furosemide (Furosemide 40 Mg/4 Ml Vial) 20 mg IV NOW ONE Stop: 01/19/24 02:56 Last Admin: 01/19/24 03:05 Dose: 20 mg Documented By: REGI Furosemide (Furosemide 40 Mg/4 Ml Vial) 20 mg IV NOW ONE Stop: 01/19/24 07:18 Last Admin: 01/19/24 07:25 Dose: 20 mg Documented By: ALEX Vital Signs Vital signs: Vital Signs - 8 hr 01/19/24 08:30 01/19/24 08:30 01/19/24 09:00 Pulse Rate 68 69 Respiratory Rate 18 Blood Pressure 118/78 Pulse Oximetry 98 01/19/24 09:01 01/19/24 09:01 01/19/24 09:30 Pulse Rate 71 72 Respiratory Rate 24 Blood Pressure 96/64 Pulse Oximetry 01/19/24 09:31 01/19/24 09:31 01/19/24 10:00 Pulse Rate 72 Respiratory Rate 25 H Blood Pressure 117/55 L 98/63 Pulse Oximetry 01/19/24 10:00 01/19/24 10:30 01/19/24 10:30 Pulse Rate 73 71 Respiratory Rate Blood Pressure 103/62 Pulse Oximetry 98 96 01/19/24 11:00 01/19/24 11:30 01/19/24 11:30 Pulse Rate 75 72 Respiratory Rate 22 20 Blood Pressure 124/84 Pulse Oximetry 94 95 01/19/24 12:00 01/19/24 12:00 Pulse Rate 73 Respiratory Rate 16 Blood Pressure 93/61 Pulse Oximetry 94 <Shanae Mars DO - Last Filed: 01/19/24 14:57> Orders Ordered: ED Orders 01/19/24 07:11 EC echo complete with contrast Stat 01/19/24 08:25 Troponin & CK Cardiac Panel Stat Hydrocodone Bitart/Acetaminophen (Hydrocodone/Acet 5/325 Tablet) 1 tab PO Q4H PRN PRN Reason: Pain, Moderate (4-6) Last Admin: 01/19/24 16:02 Dose: 1 tab Documented By: JORGE Atorvastatin Calcium (Atorvastatin 20 Mg Tablet) 40 mg PO DAILY ALEXIS Sodium Chloride (Normal Saline 0.9%) 1,000 mls @ 150 mls/hr IV CONT [facility] Last Infusion: 01/19/24 07:17 Dose: Infused Documented By: Admin: 01/19/24 03:05 Dose: 150 mls/hr Documented By: REGI Furosemide 60 mg/ Sodium (Chloride) 56 mls @ 112 mls/hr IV Q12H [facility] Last Infusion: 01/19/24 16:02 Dose: Infused Documented By: Admin: 01/19/24 15:24 Dose: 112 mls/hr Documented By: JORGE Metoprolol Tartrate (Metoprolol Ir 25 Mg Tablet) 25 mg PO DAILY [facility] Morphine Sulfate (Morphine 2 Mg/Ml Inj) 2 mg IV Q2HR PRN PRN Reason: Pain, Moderate (4-6) Last Admin: 01/19/24 14:39 Dose: 2 mg Documented By: JORGE Naloxone HCl (Naloxone 0.4 Mg/Ml Vial) 0.2 mg IV Q2MIN PRN PRN Reason: Opiate Reversal Non-Formulary Medication (Sacubitril-Valsartan) 1 tab PO BID [facility] Ondansetron HCl (Ondansetron 4 Mg/2 Ml Inj) 4 mg IV Q8HR PRN PRN Reason: Nausea And Vomiting Last Admin: 01/19/24 16:02 Dose: 4 mg Documented By: JORGE Discontinued Medications Furosemide (Furosemide 40 Mg/4 Ml Vial) 20 mg IV NOW ONE Stop: 01/19/24 02:56 Last Admin: 01/19/24 03:05 Dose: 20 mg Documented By: REGI Furosemide (Furosemide 40 Mg/4 Ml Vial) 20 mg IV NOW ONE Stop: 01/19/24 07:18 Last Admin: 01/19/24 07:25 Dose: 20 mg Documented By: ALEX Vital Signs Vital signs: Vital Signs - 8 hr 01/19/24 08:30 01/19/24 08:30 01/19/24 09:00 Pulse Rate 68 69 Respiratory Rate 18 Blood Pressure 118/78 Pulse Oximetry 98 01/19/24 09:01 01/19/24 09:01 01/19/24 09:30 Pulse Rate 71 72 Respiratory Rate 24 Blood Pressure 96/64 Pulse Oximetry 01/19/24 09:31 01/19/24 09:31 01/19/24 10:00 Pulse Rate 72 Respiratory Rate 25 H Blood Pressure 117/55 L 98/63 Pulse Oximetry 01/19/24 10:00 01/19/24 10:30 01/19/24 10:30 Pulse Rate 73 71 Respiratory Rate Blood Pressure 103/62 Pulse Oximetry 98 96 01/19/24 11:00 01/19/24 11:30 01/19/24 11:30 Pulse Rate 75 72 Respiratory Rate 22 20 Blood Pressure 124/84 Pulse Oximetry 94 95 01/19/24 12:00 01/19/24 12:00 Pulse Rate 73 Respiratory Rate 16 Blood Pressure 93/61 Pulse Oximetry 94 MDM - SOB/Dyspnea <Jason Lees MD - Last Filed: 01/19/24 16:09> Lab Data Attestation: I reviewed the patient's lab results. Lab results narrative: CBC shows white blood cell count 8600, hemoglobin 19, potassium 5.4 noted, BUN 49 and creatinine 1.69. Glucose 75. Mild LFT elevations. BNP [address] markedly elevated. Troponin 0.6 indeterminate range. 01/19/24 02:55 01/19/24 03:47 Labs: Lab Results 01/19/24 01/19/24 01/19/24 Range/Units 02:55 03:47 04:23 WBC 8.6 (4.5-11.0) X10^3/uL RBC 6.29 H (4.5-5.9) X10^6/uL Hgb 19.0 H (13.5-17.5) g/dL Hct 58.6 H (41-53) % MCV 93.2 (80-100) fL MCH 30.2 (26-34) PG MCHC 32.4 (30-36) % RDW 15.7 H (11.6-14.8) % Plt Count 207 (150-400) X10^3/uL Neut % (Auto) 71.7 (50-75) % Lymph % (Auto) 18.2 L (25-40) % Bollinger % (Auto) 8.1 (3-14) % Eos % (Auto) 1.0 L (2-4) % Baso % (Auto) 1.0 (0-2) % Neut # (Auto) 6100 (9851-0980) /uL Lymph # (Auto) 1600 (0781-8330) /uL Bollinger # (Auto) 700 (0-900) /uL Eos # (Auto) 100 (0-450) /uL Baso # (Auto) 100 (0-100) /uL Sodium 138 (137-145) mmol/L Potassium 5.4 H (3.4-5.1) mmol/L Chloride 106 (98-107) mmol/L Carbon Dioxide 22 (22-32) mmol/L BUN 49 H (9-20) mg/dL Creatinine 1.69 H (0.66-1.25) mg/dL Estimated GFR 48 L (>60) mL/min BUN/Creatinine Ratio 29.0 H (6-22) Glucose 75 (70-100) mg/dL Calcium 8.9 (8.4-10.2) mg/dL Total Bilirubin 2.2 H (0.2-1.3) mg/dL AST 266 H (17-59) IU/L ALT 450 H (<50) IU/L Alkaline Phosphatase 459 H (38-126) U/L Total Creatine Kinase 154 (55-170) U/L Troponin I 0.069 H (0.01-0.034) ng/mL NT-Pro-B Natriuret Pep 88452 H (<125) pg/mL Total Protein 7.5 (6.3-8.2) g/dL Albumin 4.1 (3.5-5.0) g/dL Globulin 3.4 (1.7-4.1) g/dL Albumin/Globulin Ratio 1.2 (1.0-2.8) Lipase 47 (23-300) U/L 01/19/24 Range/Units 08:25 WBC (4.5-11.0) X10^3/uL RBC (4.5-5.9) X10^6/uL Hgb (13.5-17.5) g/dL Hct (41-53) % MCV (80-100) fL MCH (26-34) PG MCHC (30-36) % RDW (11.6-14.8) % Plt Count (150-400) X10^3/uL Neut % (Auto) (50-75) % Lymph % (Auto) (25-40) % Bollinger % (Auto) (3-14) % Eos % (Auto) (2-4) % Baso % (Auto) (0-2) % Neut # (Auto) (5864-7648) /uL Lymph # (Auto) (6551-6210) /uL Bollinger # (Auto) (0-900) /uL Eos # (Auto) (0-450) /uL Baso # (Auto) (0-100) /uL Sodium (137-145) mmol/L Potassium (3.4-5.1) mmol/L Chloride (98-107) mmol/L Carbon Dioxide (22-32) mmol/L BUN (9-20) mg/dL Creatinine (0.66-1.25) mg/dL Estimated GFR (>60) mL/min BUN/Creatinine Ratio (6-22) Glucose (70-100) mg/dL Calcium (8.4-10.2) mg/dL Total Bilirubin (0.2-1.3) mg/dL AST (17-59) IU/L ALT (<50) IU/L Alkaline Phosphatase (38-126) U/L Total Creatine Kinase 144 (55-170) U/L Troponin I 0.079 H (0.01-0.034) ng/mL NT-Pro-B Natriuret Pep (<125) pg/mL Total Protein (6.3-8.2) g/dL Albumin (3.5-5.0) g/dL Globulin (1.7-4.1) g/dL Albumin/Globulin Ratio (1.0-2.8) Lipase (23-300) U/L Imaging Data Chest x-ray: Radiologist's Impression: Chest x-ray single view. Impression: ?No acute findings. ? See tele radiology report ECG Data Attestation: I personally reviewed and interpreted this ECG as follows: Interpretation: Normal sinus rhythm with rate of 70, left bundle branch block pattern, no Sgarbossa criteria for acute AR. MD 206, QRS 158, QTC 520. MDM Narrative Medical decision making narrative: 53-year-old male with history of CHF, recently evaluated outside facility [facility] but went home against medical advice when admission discussed, missed his dose of Lasix, some lower extremity edema, some shortness of breath, ongoing recent drug use including methamphetamine and cocaine, denies heroin use. EKG, chest x-ray, labs including BNP pending, troponin pending. Soft blood pressure, systolic blood pressure 100-110 range noted, Lasix 20mg IV for now. CT angio chest with IV contrast. Impressions: ?No pulmonary embolus. Redemonstration of cardiomegaly and pacemaker. Reflux of contrast in the hepatic veins maybe incidental or secondary to heart failure.? See tele radiology report 0700, will get repeat interval troponin, cardiac echo can be performed later today also ordered. Consider Cardiology consultation once studies obtained. Signed out to Dr Madisyn mars: Received turned over. Review patient's history and physical and workup up to this point. Patient had an echocardiogram this morning which showed severely decreased ejection fraction less than 10% with severe dilated cardiomyopathy. Patient has an elevation in his BNP. Troponins are at baseline and unchanged with serial troponins. He does have some mild lower extremity swelling. He did admit that he has been several months without multiple cardiac medications to include his metoprolol and apixaban. He has been on them for the past week. I did discuss the case with Dr. Chau who is the press tool maker on- call who recommended admission to the hospital with diuresis. The patient is agreeable to be admitted to the hospital. Discussed the case with Dr. Barahona hospitalist on-call who will admit for further evaluation and treatment. <Shanae Mars, DO - Last Filed: 01/19/24 14:57> Lab Data Labs: Lab Results 01/19/24 01/19/24 01/19/24 Range/Units 02:55 03:47 04:23 WBC 8.6 (4.5-11.0) X10^3/uL RBC 6.29 H (4.5-5.9) X10^6/uL Hgb 19.0 H (13.5-17.5) g/dL Hct 58.6 H (41-53) % MCV 93.2 (80-100) fL MCH 30.2 (26-34) PG MCHC 32.4 (30-36) % RDW 15.7 H (11.6-14.8) % Plt Count 207 (150-400) X10^3/uL Neut % (Auto) 71.7 (50-75) % Lymph % (Auto) 18.2 L (25-40) % Bollinger % (Auto) 8.1 (3-14) % Eos % (Auto) 1.0 L (2-4) % Baso % (Auto) 1.0 (0-2) % Neut # (Auto) 6100 (8253-3883) /uL Lymph # (Auto) 1600 (3766-9084) /uL Bollinger # (Auto) 700 (0-900) /uL Eos # (Auto) 100 (0-450) /uL Baso # (Auto) 100 (0-100) /uL Sodium 138 (137-145) mmol/L Potassium 5.4 H (3.4-5.1) mmol/L Chloride 106 (98-107) mmol/L Carbon Dioxide 22 (22-32) mmol/L BUN 49 H (9-20) mg/dL Creatinine 1.69 H (0.66-1.25) mg/dL Estimated GFR 48 L (>60) mL/min BUN/Creatinine Ratio 29.0 H (6-22) Glucose 75 (70-100) mg/dL Calcium 8.9 (8.4-10.2) mg/dL Total Bilirubin 2.2 H (0.2-1.3) mg/dL AST 266 H (17-59) IU/L ALT 450 H (<50) IU/L Alkaline Phosphatase 459 H (38-126) U/L Total Creatine Kinase 154 (55-170) U/L Troponin I 0.069 H (0.01-0.034) ng/mL NT-Pro-B Natriuret Pep 73432 H (<125) pg/mL Total Protein 7.5 (6.3-8.2) g/dL Albumin 4.1 (3.5-5.0) g/dL Globulin 3.4 (1.7-4.1) g/dL Albumin/Globulin Ratio 1.2 (1.0-2.8) Lipase 47 (23-300) U/L 01/19/24 Range/Units 08:25 WBC (4.5-11.0) X10^3/uL RBC (4.5-5.9) X10^6/uL Hgb (13.5-17.5) g/dL Hct (41-53) % MCV (80-100) fL MCH (26-34) PG MCHC (30-36) % RDW (11.6-14.8) % Plt Count (150-400) X10^3/uL Neut % (Auto) (50-75) % Lymph % (Auto) (25-40) % Bollinger % (Auto) (3-14) % Eos % (Auto) (2-4) % Baso % (Auto) (0-2) % Neut # (Auto) (6917-6484) /uL Lymph # (Auto) (3316-2740) /uL Bollinger # (Auto) (0-900) /uL Eos # (Auto) (0-450) /uL Baso # (Auto) (0-100) /uL Sodium (137-145) mmol/L Potassium (3.4-5.1) mmol/L Chloride (98-107) mmol/L Carbon Dioxide (22-32) mmol/L BUN (9-20) mg/dL Creatinine (0.66-1.25) mg/dL Estimated GFR (>60) mL/min BUN/Creatinine Ratio (6-22) Glucose (70-100) mg/dL Calcium (8.4-10.2) mg/dL Total Bilirubin (0.2-1.3) mg/dL AST (17-59) IU/L ALT (<50) IU/L Alkaline Phosphatase (38-126) U/L Total Creatine Kinase 144 (55-170) U/L Troponin I 0.079 H (0.01-0.034) ng/mL NT-Pro-B Natriuret Pep (<125) pg/mL Total Protein (6.3-8.2) g/dL Albumin (3.5-5.0) g/dL Globulin (1.7-4.1) g/dL Albumin/Globulin Ratio (1.0-2.8) Lipase (23-300) U/L Imaging Data echo: Radiologist's Impression: [facility] : : [id number] : : [place] : : [id number] : : Phone: [phone] Echocardiogram Report + + :Name: CLAIRE WALLIS Study Date: 01/19/2024 Height: 72 in : [id number]Location: Weight: 195 lb : : Gender: Male BSA: 2.1 m2 : :: 1970 Age: 53 yrs BP: 101/74 mmHg: :Reason For Study: CARDIOMYOPATHY : :Ordering Physician: MADISYN, : :SHANAE Performed By: Jeremiah Alejandro : :Referring: SHANAE MARS : + + Interpretation Summary The ejection fraction is estimated to be <10%. The left ventricle is markedly dilated. Right ventricular systolic function is at the lower limits of normal. The right ventricle is moderate to severely dilated. The right ventricular systolic pressure is estimated to be at least 49 mmHg based on an estimated right atrial pressure of 15 mm Hg. There is mild tricuspid regurgitation. The left atrium is severely dilated. The right atrium is severely dilated. Procedure: A two-dimensional transthoracic echocardiogram with color flow and Doppler was performed. A contrast injection of Definity was performed to improve assessment of LV function. The study quality was technically adequate. Comparison is made with the echocardiogram of 04/02/23. The heart rate ranged between 65-71 bpm during the study. Left Ventricle: The left ventricle is markedly dilated. There is normal left ventricular wall thickness. The ejection fraction is estimated to be <10%. Diastolic parameters suggest a relaxation abnormality of the left ventricle, consistent with probable normal filling pressures. Right Ventricle: The right ventricle is moderate to severely dilated. There is a pacemaker lead in the right ventricle. Right ventricular systolic function is at the lower limits of normal. Atria: The left atrium is severely dilated. The right atrium is severely dilated. There is a catheter/pacemaker lead seen in the right atrium. The interatrial septum grossly appears intact with no obvious evidence for an atrial septal defect. Mitral Valve: The mitral valve is normal. There is no mitral valve stenosis. There is trace mitral regurgitation. Aortic Valve: The aortic valve is trileaflet. There is no aortic valve stenosis. No aortic regurgitation is present. Tricuspid Valve: The tricuspid valve is normal. There is no tricuspid stenosis. There is mild tricuspid regurgitation. The right ventricular systolic pressure is estimated to be at least 49 mmHg based on an estimated right atrial pressure of 15 mm Hg. Pulmonic Valve: The pulmonic valve is not well visualized. There is no pulmonic valvular stenosis. There is no pulmonic valvular regurgitation. Great Vessels: The aortic root is normal size. The dimensions of the ascending aorta are normal. The IVC is dilated (diameter is greater than 2.1 cm) and it collapses less than 50% with a sniff. This suggests a high right atrial pressure of 15 mm Hg. Pericardium/ Pleura There is no pericardial effusion. There is no pleural effusion. MMode/2D Measurements & Calculations LVIDd: 8.1 cm LVOT diam: 2.4 cm LVIDs: 7.9 cm Ao root diam: 3.3 cm FS: 2.4 % asc Aorta Diam: 3.0 cm IVSd: 0.99 cm Ao Arch Diam (Prox Trans): 2.3 cm LVPWd: 1.1 cm LV erwin. diameter/BSA (cm/m^2): 3.9 LV sys. diameter/BSA (cm/m^2): 3.8 LA A2 area: 33.2 cm2 RA long axis: 6.2 cm LA A4 area: 24.7 cm2 RA area: 29.0 cm2 LA length (vol): 6.9 cm RA vol: 115.2 ml LA vol: 100.2 ml RA : 54.7 ml/m2 LA vol index: 47.5 ml/m2 IVC diam: 2.3 cm RVD1 (basal): 5.6 cm RVD2 (mid): 4.7 cm TAPSE: 1.7 cm Doppler Measurements & Calculations Ao V2 max: 64.8 cm/sec LVOT Max Miles: 61.8 cm/sec Ao V2 mean: 51.4 cm/sec LV V1 max P.5 mmHg Ao max P.7 mmHg LV V1 VTI: 10.3 cm Ao mean P.1 mmHg RUSS(I,D): 3.9 cm2 Ao V2 VTI: 11.5 cm RUSS(V,D): 4.2 cm2 sev ratio: 0.89 RUSS indexed to BSA (cm^2/m^2): 1.8 MV E max miles: 29.6 cm/sec TR max miles: 292.3 cm/sec MV A max miles: 66.0 cm/sec TR max P.2 mmHg MV E/A: 0.45 PA V2 max: 61.1 cm/sec Med Peak E' Miles: 1.7 cm/sec PA V2 mean: 42.5 cm/sec E/E' med: 17.2 PA mean P.80 mmHg Lat Peak E' Miles: 2.7 cm/sec PA pr(Accel): 53.3 mmHg E/E' lat: 11.0 E/e' average: 14.1 MV dec time: 0.18 sec SV(LVOT): 44.7 ml Reading Physician:LEIDA ALVAREZ Narrative Medical decision making narrative: 53-year-old male with history of CHF, recently evaluated outside facility [facility] but went home against medical advice when admission discussed, missed his dose of Lasix, some lower extremity edema, some shortness of breath, denies chest pain. EKG, chest x-ray, labs including BNP pending, troponin pending. Soft blood pressure, systolic blood pressure 100-[address] angio chest with IV contrast. Impressions: ?No pulmonary embolus. Redemonstration of cardiomegaly and pacemaker. Reflux of contrast in the hepatic veins maybe incidental or secondary to heart failure.? See tele radiology report 0700, will get repeat interval troponin, cardiac echo can be performed later today also ordered. Consider Cardiology consultation once studies obtained.Signed out to Dr Madisyn mars: Received turned over. Review patient's history and physical and workup up to this point. Patient had an echocardiogram this morning which showed severely decreased ejection fraction less than 10% with severe dilated cardiomyopathy. Patient has an elevation in his BNP. Troponins are at baseline and unchanged with serial troponins. He does have some mild lower extremity swelling. He did admit that he has been several months without multiple cardiac medications to include his metoprolol and apixaban. He has been on them for the past week. I did discuss the case with Dr. Chau who is the press tool maker on- call who recommended admission to the hospital with diuresis. The patient is agreeable to be admitted to the hospital. Discussed the case with Dr. Barahona hospitalist on-call who will admit for further evaluation and treatment. Critical Care Time <Jason Lees MD - Last Filed: 01/19/24 16:09> Critical Care Time Critical Care Time: Yes Total Critical Care Time: 35 Attestation: The high probability of a clinically significant, sudden or life threatening deterioration of the [cardiopulmonary, hematologic] system(s) required my full and direct attention, intervention and personal management. The aggregate critical care time was [35] minutes. This time is in addition to time spent performing reported procedures but includes the following: [x] Data Review and interpretation [x] Patient assessment and monitoring of vital signs [x] Documentation [x] Medication orders and management Discharge Plan Departure Patient Disposition: Admitted As Inpatient Clinical Impression: Dyspnea, Dilated cardiomyopathy Admit Date/Time: 01/19/24 12:49 Admit Provider: Milad Barahona
[2024-01-19 04:02] LABS: HEMOLYSIS 20 (0-50)
[2024-01-19 04:06] LABS: Alanine Aminotransferase 450 IU/L (<50); Albumin 4.1 g/dL (3.5-5.0); Albumin Globulin Ratio 1.2 (1.0-2.8); Alkaline Phosphatase 459 U/L (38-126); Aspartate Aminotransferase 266 IU/L (17-59); Bilirubin Total 2.2 mg/dL (0.2-1.3); Blood Urea Nitrogen 49 mg/dL (9-20); Calcium 8.9 mg/dL (8.4-10.2); Carbon Dioxide 22 mmol/L (22-32); Chloride 106 mmol/L (98-107); Creatine Kinase 154 U/L (55-170); Estimated Glomerular Filt Rate 48 mL/min (>60); Globulin 3.4 g/dL (1.7-4.1); Glucose 75 mg/dL (70-100); Lipase 47 U/L (23-300); Sodium 138 mmol/L (137-145); Total Protein 7.5 g/dL (6.3-8.2)
[2024-01-19 04:12] LABS: Potassium 5.4 mmol/L (3.4-5.1)
--- NOTE | 2024-01-19 05:12 | DI.CT.S_ITS ---
PROCEDURE: CT ANGIO CHEST PE PROTOCOL INDICATIONS: dyspnea, hx clots cardiac, hx CM low EF%, eval for PE TECHNIQUE: After the administration of intravenous contrast, 2 mm thick sections acquired from the pulmonary apices to the posterior costophrenic angles. 3-dimensional maximum intensity projection (MIP) coronal and sagittal reformats were then acquired through the thorax. For radiation dose reduction, the following was used: automated exposure control, adjustment of mA and/or kV according to patient size. COMPARISON: [facility], CR, XR CHEST 1 VIEW, 01/12/2024, 16:10. [facility], CR, XR CHEST 1V, 01/19/2024, 2:47. [facility], CT, CT ANGIO CHEST PE PROTOCOL, 04/02/2023, 1:40. FINDINGS: Image quality: Diagnostic. Pulmonary arteries: Pulmonary arteries are normal in size, and demonstrate no intraluminal filling defects to suggest central pulmonary embolism. Lower Neck: No enlarged lymph nodes. Thyroid: No thyroid nodules which require sonographic follow up, per consensus guidelines. Axillae: No enlarged lymph nodes. Chest Wall: Unremarkable. Gynecomastia. Bones: Unremarkable. Lungs and Pleura: Mild emphysema. No pneumothorax or pleural effusions. No consolidation or suspicious nodules. Heart: Heart size is moderately enlarged. Trace pericardial effusion. Thoracic Vessels: No aortic aneurysm. Mediastinum and Sonya: Borderline sized mediastinal lymph nodes are noted, most likely reactive. Esophagus: Mild concentric wall thickening likely secondary to chronic gastroesophageal reflux. Small hiatal hernia. Upper Abdomen: Nodular contour of liver consistent with cirrhosis. There is contrast reflux into the hepatic vein, suggesting right heart strain. There is a small amount of ascites. IMPRESSION: 1. No pulmonary embolus. 2. Moderate cardiomegaly. Contrast reflux into the hepatic vein suggesting right heart strain. 3. Borderline sized mediastinal lymph nodes are present, most likely reactive. 4. Cirrhotic liver. 5. A small amount of ascites. 6. Gynecomastia. No significant discrepancy with the caustic cresylate shift superintendent radiology preliminary report. Dictated by: Emma Arambula M.D. on 01/19/2024 at 7:31 Approved by: Emma Arambula M.D. on 01/19/2024 at 7:37
[2024-01-19 05:20] LABS: NT-proBNP (BNP-Adult 18+) 23700 pg/mL (<125)
[2024-01-19 05:23] LABS: Troponin I 0.069 ng/mL (0.01-0.034)
--- NOTE | 2024-01-19 07:11 | DI.ECHO.S_ITS ---
[facility] : : [address] : : [place] : : [id number] : : Phone: [phone] Echocardiogram Report + + :Name: CLAIRE WALLIS Study Date: 01/19/2024 Height: 72 in : [id number] ReadingLocation: Weight: 195 lb : : Gender: Male BSA: 2.1 m2 : :: 1970 Age: 53 yrs BP: 101/74 mmHg: :Reason For Study: CARDIOMYOPATHY : :Ordering Physician: SONJA, : :RONNIE Performed By: Jeremiah Alejandro : :Referring: RONNIE CASILLAS : + + Interpretation Summary The ejection fraction is estimated to be <10%. The left ventricle is markedly dilated. Right ventricular systolic function is at the lower limits of normal. The right ventricle is moderate to severely dilated. The right ventricular systolic pressure is estimated to be at least 49 mmHg based on an estimated right atrial pressure of 15 mm Hg. There is mild tricuspid regurgitation. The left atrium is severely dilated. The right atrium is severely dilated. Procedure: A two-dimensional transthoracic echocardiogram with color flow and Doppler was performed. A contrast injection of Definity was performed to improve assessment of LV function. The study quality was technically adequate. Comparison is made with the echocardiogram of 04/02/23. The heart rate ranged between 65-71 bpm during the study. Left Ventricle: The left ventricle is markedly dilated. There is normal left ventricular wall thickness. The ejection fraction is estimated to be <10%. Diastolic parameters suggest a relaxation abnormality of the left ventricle, consistent with probable normal filling pressures. Right Ventricle: The right ventricle is moderate to severely dilated. There is a pacemaker lead in the right ventricle. Right ventricular systolic function is at the lower limits of normal. Atria: The left atrium is severely dilated. The right atrium is severely dilated. There is a catheter/pacemaker lead seen in the right atrium. The interatrial septum grossly appears intact with no obvious evidence for an atrial septal defect. Mitral Valve: The mitral valve is normal. There is no mitral valve stenosis. There is trace mitral regurgitation. Aortic Valve: The aortic valve is trileaflet. There is no aortic valve stenosis. No aortic regurgitation is present. Tricuspid Valve: The tricuspid valve is normal. There is no tricuspid stenosis. There is mild tricuspid regurgitation. The right ventricular systolic pressure is estimated to be at least 49 mmHg based on an estimated right atrial pressure of 15 mm Hg. Pulmonic Valve: The pulmonic valve is not well visualized. There is no pulmonic valvular stenosis. There is no pulmonic valvular regurgitation. Great Vessels: The aortic root is normal size. The dimensions of the ascending aorta are normal. The IVC is dilated (diameter is greater than 2.1 cm) and it collapses less than 50% with a sniff. This suggests a high right atrial pressure of 15 mm Hg. Pericardium/ Pleura There is no pericardial effusion. There is no pleural effusion. MMode/2D Measurements & Calculations LVIDd: 8.1 cm LVOT diam: 2.4 cm LVIDs: 7.9 cm Ao root diam: 3.3 cm FS: 2.4 % asc Aorta Diam: 3.0 cm IVSd: 0.99 cm Ao Arch Diam (Prox Trans): 2.3 cm LVPWd: 1.1 cm LV erwin. diameter/BSA (cm/m^2): 3.9 LV sys. diameter/BSA (cm/m^2): 3.8 LA A2 area: 33.2 cm2 RA long axis: 6.2 cm LA A4 area: 24.7 cm2 RA area: 29.0 cm2 LA length (vol): 6.9 cm RA vol: 115.2 ml LA vol: 100.2 ml RA : 54.7 ml/m2 LA vol index: 47.5 ml/m2 IVC diam: 2.3 cm RVD1 (basal): 5.6 cm RVD2 (mid): 4.7 cm TAPSE: 1.7 cm Doppler Measurements & Calculations Ao V2 max: 64.8 cm/sec LVOT Max Miles: 61.8 cm/sec Ao V2 mean: 51.4 cm/sec LV V1 max P.5 mmHg Ao max P.7 mmHg LV V1 VTI: 10.3 cm Ao mean P.1 mmHg RUSS(I,D): 3.9 cm2 Ao V2 VTI: 11.5 cm RUSS(V,D): 4.2 cm2 sev ratio: 0.89 RUSS indexed to BSA (cm^2/m^2): 1.8 MV E max miles: 29.6 cm/sec TR max miles: 292.3 cm/sec MV A max miles: 66.0 cm/sec TR max P.2 mmHg MV E/A: 0.45 PA V2 max: 61.1 cm/sec Med Peak E' Miles: 1.7 cm/sec PA V2 mean: 42.5 cm/sec E/E' med: 17.2 PA mean P.80 mmHg Lat Peak E' Miles: 2.7 cm/sec PA pr(Accel): 53.3 mmHg E/E' lat: 11.0 E/e' average: 14.1 MV dec time: 0.18 sec SV(OT): 44.7 ml Reading Physician:LEIDA
[2024-01-19 08:42] LABS: Creatine Kinase 144 U/L (55-170)
[2024-01-19 08:56] LABS: Troponin I 0.079 ng/mL (0.01-0.034)
--- NOTE | 2024-01-19 09:07 | PC.NURSE ---
Left lower lobe crackles noted posteriorly.
--- NOTE | 2024-01-19 13:40 | PC.NURSE ---
right sided cp worse when laying back; improved with sitting up straight. pt states this is chronic asking for pain meds; notified.
--- NOTE | 2024-01-19 14:26 | P.HP_ITS ---
History of Present Illness History of Present Illness Date Patient Seen: 01/19/24 Time Patient Seen: 15:00 Chief complaint: CHF symptoms Narrative: This patient was a 53-year-old male with a history of systolic heart failure which likely is methamphetamine induced. He arrived to the ED by ambulance with dyspnea. The patient has a history of using both methamphetamine and cocaine. The patient's last EF was less than 10%. He was followed by Cardiology at [facility]. The patient has a AICD implant as well. He does smoke about a pack a day for 20 years. She denies any alcohol ingestion. He has had increased dyspnea on exertion, orthopnea, and general fatigue for the last 1-2 weeks. He was off several of his cardiac medications for several months due to not realizing that all of his medications were not refilled. This included his beta paul. The patient last used drugs on Monday of this week, small amount of cocaine. He does have right-sided chest pain in her intermittently which is positional and does not associate with exertion. He has no known history of CAD. In the emergency department he was given 2 doses of Lasix with failure to improve. He does take oral diuretics at home, torsemide. The case was discussed with Dr. Chau of Cardiology at [facility] who recommended diuresis. The patient was full resuscitation. He denies recent exertional chest pain but does have dyspnea on exertion. He does have some pedal edema. He denies any palpitations. No ICD defibrillations are reported. He denies recent URI symptoms including rhinorrhea, cough or sore throat. [facility] Medical History (Updated 01/19/24 @ 12:49 by Ronnie Mars DO) Night terror IFG (impaired fasting glucose) Pulmonary emboli Methamphetamine use Poor eyesight Anxiety ADHD Shoulder pain Kidney stones Low testosterone Deep vein thrombosis Erectile dysfunction Tobacco dependence CHF (congestive heart failure) Surgical History (Updated 07/25/23 @ 14:40 by Nick Ling DO) Status post implantation of automatic cardioverter/defibrillator (AICD) Anesthesia History of cardiac defibrillator placement Pacemaker Family History Father Diabetes mellitus Mother Cancer Social History household members: none Smoking Status: Current every day smoker alcohol intake: never Meds Home Medications and Allergies Home Medications Medication Instructions Recorded Confirmed Type atorvastatin 40 mg tablet 40 mg PO DAILY #90 tabs 04/10/23 01/19/24 Rx bupropion HCl 150 mg 24 hr tablet, 150 mg PO QAM #90 tabs 04/10/23 01/19/24 Rx extended release (Wellbutrin XL) sildenafil 100 mg tablet 100 mg PO DAILY PRN sexual 04/10/23 01/19/24 Rx activity #30 tabs sacubitril 24 mg-valsartan 26 mg 1 tab PO BID 05/05/23 01/19/24 History tablet torsemide 20 mg tablet 20 mg PO .qod 07/25/23 01/19/24 History apixaban 5 mg tablet (Eliquis) See Rx Instructions PO BID #60 tabs 09/22/23 01/19/24 Rx prazosin 1 mg capsule 1 mg PO ONCE PM #90 caps 09/22/23 01/19/24 Rx carvedilol 12.5 mg tablet 12.5 mg PO BID #180 tabs 01/10/24 01/19/24 Rx empagliflozin 10 mg tablet 10 mg PO DAILY #90 tabs 01/10/24 01/19/24 Rx metoprolol tartrate 25 mg tablet 25 mg PO DAILY #90 tabs 01/10/24 01/19/24 Rx doxepin 100 mg capsule 100 mg PO BEDTIME 01/19/24 01/19/24 History Allergies Allergy/AdvReac Type Severity Reaction Status Date / Time No Known Drug Allergies Allergy Verified 09/22/23 11:00 Review of Systems Review of Systems Narrative: All else reviewed and otherwise unremarkable except as noted in the history and physical. Exam Vital Signs (past 8 hours): - 01/19/24 06:30 01/19/24 06:53 01/19/24 06:53 Temperature Pulse Rate 71 68 Respiratory Rate 19 9 L Blood Pressure 90/62 Pulse Oximetry 97 98 01/19/24 07:00 01/19/24 07:00 01/19/24 07:27 Temperature Pulse Rate 69 Respiratory Rate 14 Blood Pressure 92/61 95/76 Pulse Oximetry 96 01/19/24 07:27 01/19/24 07:30 01/19/24 07:30 Temperature Pulse Rate 69 68 Respiratory Rate 22 22 Blood Pressure 100/77 Pulse Oximetry 96 94 01/19/24 07:32 01/19/24 07:32 01/19/24 08:00 Temperature Pulse Rate 69 Respiratory Rate 19 Blood Pressure 101/74 108/70 Pulse Oximetry 96 01/19/24 08:00 01/19/24 08:30 01/19/24 08:30 Temperature Pulse Rate 66 68 Respiratory Rate 16 18 Blood Pressure 118/78 Pulse Oximetry 97 98 01/19/24 09:00 01/19/24 09:01 01/19/24 09:01 Temperature Pulse Rate 69 71 Respiratory Rate 24 Blood Pressure 96/64 Pulse Oximetry 01/19/24 09:30 01/19/24 09:31 01/19/24 09:31 Temperature Pulse Rate 72 72 Respiratory Rate 25 H Blood Pressure 117/55 L Pulse Oximetry 01/19/24 10:00 01/19/24 10:00 01/19/24 10:30 Temperature Pulse Rate 73 71 Respiratory Rate Blood Pressure 98/63 Pulse Oximetry 98 96 01/19/24 10:30 01/19/24 11:00 01/19/24 11:30 Temperature Pulse Rate 75 Respiratory Rate 22 Blood Pressure 103/62 124/84 Pulse Oximetry 94 01/19/24 11:30 01/19/24 12:00 01/19/24 12:00 Temperature Pulse Rate 72 73 Respiratory Rate 20 16 Blood Pressure 93/61 Pulse Oximetry 95 94 01/19/24 13:39 01/19/24 13:40 Temperature 97.8 F Pulse Rate 68 Respiratory Rate 19 Blood Pressure 105/90 Pulse Oximetry 97 Oxygen Delivery Method Room Air Narrative Exam Narrative: NAD, alert and oriented, fluent speech, calm. Normocephalic skull, EOMI, anicteric sclera, symmetric pupils. Oropharynx unremarkable, no droop. Neck supple, midline trachea, no adenopathy. Lungs clear, normal rate and effort. Heart regular, no murmur gallop or rub. Abdomen is soft, non distended and non tender. Extremities are with 2+ edema. Skin is free of rash or lesions. He is many tattoos including neck, chest, in both arms are sleeved. Joints are not swollen or deformed. Judgment appears to be normal. Objective Imaging CT scan - chest: Radiologist's impression: 1. No pulmonary embolus. 2. Moderate cardiomegaly. Contrast reflux into the hepatic vein suggesting right heart strain. 3. Borderline sized mediastinal lymph nodes are present, most likely reactive. 4. Cirrhotic liver. 5. A small amount of ascites. 6. Gynecomastia. Chest x-ray: Radiologist's impression: No acute cardiopulmonary abnormality is seen. Echo: Radiologist's impression: The left ventricle is markedly dilated. The ejection fraction is estimated to be 10-15%. There is severe global hypokinesis of the left ventricle. There are mulyiple thrombi noted in the apex of the left ventricle- the largest measuring 2.0 cm x 2.8 cm. Diastolic parameters suggest a pseudonormalization pattern, consistent with probable elevated filling pressures. The right ventricle is normal size. There is a pacemaker lead in the right ventricle. Right ventricular systolic function is moderately reduced. The right ventricular systolic pressure is estimated to be at least 46 mmHg based on an estimated right atrial pressure of 15 mm Hg. The left atrium is severely dilated. The right atrium is moderately dilated. There is mild mitral regurgitation. There is mild to moderate tricuspid regurgitation. The aortic root is normal size. Procedure: A two-dimensional transthoracic echocardiogram with color flow and Doppler was performed. The study quality was technically good. There is no prior echocardiogram noted for this patient. The patient was in normal sinus rhythm during the exam. Left Ventricle: There is normal left ventricular wall thickness. The left ventricle is markedly dilated. There are mulyiple thrombi noted in the apex of the left ventricle- the largest measuring 2.0 cm x 2.8 cm. The ejection fraction is estimated to be 10-15%. There is severe global hypokinesis of the left ventricle. Diastolic parameters suggest a pseudonormalization pattern, consistent with probable elevated filling pressures. Right Ventricle: The right ventricle is normal size. There is a pacemaker lead in the right ventricle. Right ventricular systolic function is moderately reduced. Atria: The left atrium is severely dilated. The right atrium is moderately dilated. There is no Doppler evidence for an atrial septal defect. Mitral Valve: The mitral valve is normal in structure and function. There is mild mitral regurgitation. Aortic Valve: The aortic valve is trileaflet. The aortic valve opens well. No aortic regurgitation is present. Tricuspid Valve: The tricuspid valve is normal in structure but is abnormal in function. There is mild to moderate tricuspid regurgitation. The right ventricular systolic pressure is estimated to be at least 46 mmHg based on an estimated right atrial pressure of 15 mm Hg. Pulmonic Valve: The pulmonic valve is normal in structure and function. There is trace pulmonic regurgitation. Great Vessels: The aortic root is normal size. The dimensions of the ascending aorta are normal. The pulmonary artery is normal size. The IVC is dilated (diameter is greater than 2.1 cm) and it collapses less than 50% with a sniff. This suggests a high right atrial pressure of 15 mm Hg. Pericardium/ Pleura There is no pericardial effusion. There is no pleural effusion. Labs 01/19/24 02:55 01/19/24 03:47 Labs: Laboratory Results - last 24 hr 01/19/24 01/19/24 01/19/24 02:55 03:47 04:23 WBC 8.6 RBC 6.29 H Hgb 19.0 H Hct 58.6 H MCV 93.2 MCH 30.2 MCHC 32.4 RDW 15.7 H Plt Count 207 Neut % (Auto) 71.7 Lymph % (Auto) 18.[address] [place] % (Auto) 8.1 Eos % (Auto) 1.0 L Baso % (Auto) 1.0 Neut # (Auto) 6100 Lymph # (Auto) [address] [place] # (Auto) 700 Eos # (Auto) 100 Baso # (Auto) 100 Sodium 138 Potassium 5.4 H Chloride 106 Carbon Dioxide 22 BUN 49 H Creatinine 1.69 H Estimated GFR 48 L BUN/Creatinine Ratio 29.0 H Glucose 75 Calcium 8.9 Total Bilirubin 2.2 H AST 266 H ALT 450 H Alkaline Phosphatase 459 H Total Creatine Kinase 154 Troponin I 0.069 H NT-Pro-B Natriuret Pep 54837 H Total Protein 7.5 Albumin 4.1 Globulin 3.4 Albumin/Globulin Ratio 1.2 Lipase 47 01/19/24 08:25 WBC RBC Hgb Hct MCV MCH MCHC RDW Plt Count Neut % (Auto) Lymph % (Auto) [place] % (Auto) Eos % (Auto) Baso % (Auto) Neut # (Auto) Lymph # (Auto) [place] # (Auto) Eos # (Auto) Baso # (Auto) Sodium Potassium Chloride Carbon Dioxide BUN Creatinine Estimated GFR BUN/Creatinine Ratio Glucose Calcium Total Bilirubin AST ALT Alkaline Phosphatase Total Creatine Kinase 144 Troponin I 0.079 H NT-Pro-B Natriuret Pep Total Protein Albumin Globulin Albumin/Globulin Ratio Lipase Assessment & Plan Assessment & Plan narrative: 1. Acute on chronic systolic heart failure, present on admission and active. 2. TRAVIS, present on admission and active. Differential includes cardiorenal syndrome. 3. Hyperkalemia, present on admission and active. 4. Methamphetamine and cocaine abuse, present on admission and active. 5. ICD, present on admission and active. 6. Erythrocytosis, present on admission and active. Plan: -diuresis with Lasix 60 IV q.12 hours. -monitor potassium and renal function closely. -he may require inotropic pressor for acute systolic heart failure and cardiorenal syndrome if he fails to improve. -monitor H&H. He is full resuscitation. He was admitted observation status we will see how response to therapy over 1 night. He was relatively high risk for requiring a longer admission but does have a risk of leaving against medical advice. Time Spent With Patient Time with patient: 30 to 49 minutes with 50% spent counseling/coordinating care Quality MIPS - Admit I confirm the patient?s Advance Care Plan is present, Code status is documented, Surrogate decision maker is in patient?s record [If Yes, STOP here]: Yes [facility] - Meds 'Current medications' to include all prescriptions, [id number] products, herbals, cannabis/cannabidiol products, and vitamin/mineral/dietary (nutritional) supplements. I have utilized all available resources to obtain, update, or review the patient?s current medications. [If Yes, STOP here]: Yes
[2024-01-19] MEDS: MORPHINE 2 MG/ML INJ IV (14:39)
[2024-01-19] MEDS: FUROSEMIDE 60 MG in SODIUM CHLORIDE 0.9% 50 ML 112 MG IV (15:24)
[2024-01-19 15:53] LABS: MRSA (Nasal) PCR NOT DETECTED (Not Detect)
[2024-01-19] MEDS: ONDANSETRON 4 MG/2 ML INJ IV (16:02)
[2024-01-19] MEDS: HYDROCODONE/ACET 5/325 TABLET 1 TAB PO (16:02)
--- NOTE | 2024-01-19 17:31 | PC.NURSE ---
Admit/day shift note Pt arrived on floor, complaining of CP rated 9/10. RN communicated pain to provider and provider/RN addressed pt's pain. Medication reconciliation completed with pt's prescription bottles. Pt's prescriptions sent to pharmacy. RN explained to patient not to take any of pt home meds while in hospital. RN communicated pt's pain (chest and right shoulder), anxiety, potassium level (5.4), and rising troponin labs. Vital signs stable.
[2024-01-19] MEDS: Sacubitril-Valsartan 24-26 mg tablet 1 EACH PO (20:30)
[2024-01-19 21:40] LABS: BUN Creatinine Ratio 25.5 (6-22); Blood Urea Nitrogen 51 mg/dL (9-20); Calcium 8.3 mg/dL (8.4-10.2); Carbon Dioxide 24 mmol/L (22-32); Chloride 105 mmol/L (98-107); Estimated Glomerular Filt Rate 39 mL/min (>60); HEMOLYSIS 43 (0-50); Potassium 4.4 mmol/L (3.4-5.1); Sodium 137 mmol/L (137-145)
[2024-01-19 21:41] LABS: Magnesium 2.5 mg/dL (1.6-2.3)
[2024-01-19 21:52] LABS: Troponin I 0.064 ng/mL (0.01-0.034)
[2024-01-19 22:18] LABS: Glucose 39 mg/dL (70-100)
[2024-01-19 22:54] LABS: Glucose 63 mg/dL (70-100)
[2024-01-20] VITALS (7 sets, daily range): BP systolic 106–116; BP diastolic 72–81; PULSE 69–76; RESP 14–17; TEMP 35.7–36; O2SAT 92–99
[2024-01-20 05:40] LABS: Add Manual Diff / Slide Review NO; Basophils Absolute Auto 100 /uL (0-100); Basophils Percent Auto 1.5 % (0-2); Eosinophils Absolute Auto 200 /uL (0-450); Eosinophils Percent Auto 1.8 % (2-4); Hematocrit 55.8 % (41-53); Hemoglobin 18.2 g/dL (13.5-17.5); Lymphocytes Absolute Auto 1700 /uL (1100-4500); Mean Corpuscular HGB Conc 32.6 % (30-36); Mean Corpuscular Hemoglobin 30.3 PG (26-34); Mean Corpuscular Volume 92.8 fL (80-100); Monocytes Absolute Auto 900 /uL (0-900); Monocytes Percent Auto 11.1 % (3-14); Neutrophils Absolute Auto 5600 /uL (1500-7000); Neutrophils Percent Auto 65.6 % (50-75); Platelet Count 195 X10^3/uL (150-400); Red Blood Cell Count 6.02 X10^6/uL (4.5-5.9); Red Cell Distribution Width 15.5 % (11.6-14.8); White Blood Cell Count 8.5 X10^3/uL (4.5-11.0)
[2024-01-20 05:57] LABS: BUN Creatinine Ratio 26.9 (6-22); Blood Urea Nitrogen 52 mg/dL (9-20); Calcium 8.4 mg/dL (8.4-10.2); Carbon Dioxide 23 mmol/L (22-32); Chloride 104 mmol/L (98-107); Estimated Glomerular Filt Rate 41 mL/min (>60); Glucose 71 mg/dL (70-100); Potassium 4.6 mmol/L (3.4-5.1); Sodium 136 mmol/L (137-145)
[2024-01-20 06:05] LABS: Troponin I 0.061 ng/mL (0.01-0.034)
[2024-01-20 06:12] LABS: HEMOLYSIS 81 (0-50)
[2024-01-20] MEDS: FUROSEMIDE 60 MG in SODIUM CHLORIDE 0.9% 50 ML 112 MG IV (06:15)
--- NOTE | 2024-01-20 08:22 | PM.PN.1 ---
Subjective Subjective Interval history: He was having a good diuresis and feels better today. Less dyspnea and chest heaviness. Exam Vital Signs (past 8 hours): - 01/20/24 02:00 01/20/24 04:00 01/20/24 06:00 Temperature 96.8 F L Pulse Rate 71 Respiratory Rate 14 Blood Pressure 108/80 Pulse Oximetry 92 99 98 Oxygen Delivery Method Nasal Cannula Room Air Oxygen Flow Rate 1 1 01/20/24 07:00 01/20/24 07:19 Temperature Pulse Rate Respiratory Rate Blood Pressure Pulse Oximetry 98 Oxygen Delivery Method Nasal Cannula Nasal Cannula Oxygen Flow Rate 1 Oxygen Delivery Method Nasal Cannula Oxygen Flow Rate 1 Narrative Exam Narrative: NAD, alert and oriented. Fluent speech. Lungs are clear, normal rate and effort. Heart is regular, no murmur gallop or rub. Abdomen is soft, non distended. Extremities are with 1+ (improved) edema. Objective Labs 01/20/24 04:42 01/20/24 04:42 Labs: Laboratory Results - last 24 hr 01/19/24 01/19/24 01/19/24 08:25 14:25 21:18 WBC RBC Hgb Hct MCV MCH MCHC RDW Plt Count Neut % (Auto) Lymph % (Auto) [place] % (Auto) Eos % (Auto) Baso % (Auto) Neut # (Auto) Lymph # (Auto) [place] # (Auto) Eos # (Auto) Baso # (Auto) Sodium 137 Potassium 4.4 Chloride 105 Carbon Dioxide 24 BUN 51 H Creatinine 2.00 H Estimated GFR 39 L BUN/Creatinine Ratio 25.5 H Glucose 39 L* Calcium 8.3 L Magnesium 2.5 H Total Creatine Kinase 144 Troponin I 0.079 H 0.064 H Nasal Screen MRSA (PCR) Not detected 01/19/24 01/20/24 22:30 04:42 WBC 8.5 RBC 6.02 H Hgb 18.2 H Hct 55.8 H MCV 92.8 MCH 30.3 MCHC 32.6 RDW 15.5 H Plt Count 195 Neut % (Auto) 65.6 Lymph % (Auto) 20.0 L [place] % (Auto) 11.1 Eos % (Auto) 1.8 L Baso % (Auto) 1.5 Neut # (Auto) 5600 Lymph # (Auto) 1700 [place] # (Auto) 900 Eos # (Auto) 200 Baso # (Auto) 100 Sodium 136 L Potassium 4.6 Chloride 104 Carbon Dioxide 23 BUN 52 H Creatinine 1.93 H Estimated GFR 41 L BUN/Creatinine Ratio 26.9 H Glucose 63 L 71 Calcium 8.4 Magnesium Total Creatine Kinase Troponin I 0.061 H Nasal Screen MRSA (PCR) PFSH Medical History Night terror IFG (impaired fasting glucose) Pulmonary emboli Methamphetamine use Poor eyesight Anxiety ADHD Shoulder pain Kidney stones Low testosterone Deep vein thrombosis Erectile dysfunction Tobacco dependence CHF (congestive heart failure) Surgical History Status post implantation of automatic cardioverter/defibrillator (AICD) Anesthesia History of cardiac defibrillator placement Pacemaker Family History Father Diabetes mellitus Mother Cancer Other Acute on chronic systolic (congestive) heart failure Social History household members: none Smoking Status: Current every day smoker alcohol intake: never Assessment & Plan Assessment & Plan narrative: 1. Acute on chronic systolic heart failure, present on admission and active. 2. TRAVIS, present on admission and active. Differential includes cardiorenal syndrome. 3. Hyperkalemia, present on admission and active. 4. Methamphetamine and cocaine abuse, present on admission and active. 5. ICD, present on admission and active. 6. Erythrocytosis, present on admission and active. Plan: -continue to diuresis with Lasix 60 IV q.12 hours. -monitor potassium and renal function closely. -he may be able to discharge this afternoon with close follow up. He is full resuscitation. He was admitted observation status we will see how response to therapy over 1 night. He was relatively high risk for requiring a longer admission but does have a risk of leaving against medical advice. Quality VTE Deep Vein Thrombosis/Pulmonary Embolism Present on Admission: No
[2024-01-20] MEDS: Sacubitril-Valsartan 24-26 mg tablet 1 EACH PO (08:23)
[2024-01-20] MEDS: METOPROLOL IR 25 MG TABLET PO (08:23)
[2024-01-20] MEDS: ATORVASTATIN 20 MG TABLET 40 MG PO (08:23)
--- NOTE | 2024-01-20 11:57 | P.DS_ITS ---
History of Present Illness History of Present Illness Chief complaint: CHF symptoms Narrative: This patient was a 53-year-old male with a history of systolic heart failure which likely is methamphetamine induced. He arrived to the ED by ambulance with dyspnea. The patient has a history of using both methamphetamine and cocaine. The patient's last EF was less than 10%. He was followed by Cardiology at [facility]. The patient has a AICD implant as well. He does smoke about a pack a day for 20 years. She denies any alcohol ingestion. He has had increased dyspnea on exertion, orthopnea, and general fatigue for the last 1-2 weeks. He was off several of his cardiac medications for several months due to not realizing that all of his medications were not refilled. This included his beta paul. The patient last used drugs on Monday of this week, small amount of cocaine. He does have right-sided chest pain in her intermittently which is positional and does not associate with exertion. He has no known history of CAD. In the emergency department he was given 2 doses of Lasix with failure to improve. He does take oral diuretics at home, torsemide. The case was discussed with Dr. Chau of Cardiology at [facility] who recommended diuresis. The patient was full resuscitation. He denies recent exertional chest pain but does have dyspnea on exertion. He does have some pedal edema. He denies any palpitations. No ICD defibrillations are reported. He denies recent URI symptoms including rhinorrhea, cough or sore throat. Discharge Providers Provider Date of admission: 01/19/24 12:49 Discharge Date: 01/20/24 Primary care physician: Nick Ling DO Discharge provider: Milad Barahona MD Summary Hospital Course Discharge Diagnosis: 1. Acute on chronic systolic heart failure, present on admission and improved. 2. TRAVIS, present on admission and active. 3. Hyperkalemia, present on admission and resolved. 4. Methamphetamine and cocaine abuse, present on admission and active. 5. AICD, present on admission and active. 6. Erythrocytosis, present on admission and active. Hospital Course: He was admitted for volume overload. He was diuresed and improved. He was able to ambulate without difficulty. He had elevated troponins relating to demand ischemia. He will increase his torsemide from every other day to daily. He did not require oxygen. Status at Discharge Cognitive/behavioral status at discharge: at baseline, oriented Functional status at discharge: independent ambulation Overall status at discharge: patient is back to baseline Time Spent with Patient Time spent: Greater than 30 minutes Exam Vital Signs (past 8 hours): - 01/20/24 04:00 01/20/24 06:00 01/20/24 07:00 Temperature 96.8 F L Pulse Rate 71 Respiratory Rate 14 Blood Pressure 108/80 Pulse Oximetry 99 98 Oxygen Delivery Method Room Air Nasal Cannula Oxygen Flow Rate 1 01/20/24 07:19 01/20/24 08:00 01/20/24 10:00 Temperature 96.7 F L Pulse Rate 76 Respiratory Rate 16 Blood Pressure 116/81 Pulse Oximetry 98 99 96 Oxygen Delivery Method Nasal Cannula Room Air Oxygen Flow Rate 1 0 Oxygen Delivery Method Room Air Oxygen Flow Rate 0 Narrative Exam Narrative: NAD, alert and oriented. Fluent speech. Lungs are clear, normal rate and effort. Heart is regular, no murmur gallop or rub. Abdomen is soft, non distended. Extremities with trace edema. Objective Imaging Echo: Radiologist's impression: The left ventricle is markedly dilated. The ejection fraction is estimated to be 10-15%. There is severe global hypokinesis of the left ventricle. There are mulyiple thrombi noted in the apex of the left ventricle- the largest measuring 2.0 cm x 2.8 cm. Diastolic parameters suggest a pseudonormalization pattern, consistent with probable elevated filling pressures. The right ventricle is normal size. There is a pacemaker lead in the right ventricle. Right ventricular systolic function is moderately reduced. The right ventricular systolic pressure is estimated to be at least 46 mmHg based on an estimated right atrial pressure of 15 mm Hg. The left atrium is severely dilated. The right atrium is moderately dilated. There is mild mitral regurgitation. There is mild to moderate tricuspid regurgitation. The aortic root is normal size. Procedure: A two-dimensional transthoracic echocardiogram with color flow and Doppler was performed. The study quality was technically good. There is no prior echocardiogram noted for this patient. The patient was in normal sinus rhythm during the exam. Left Ventricle: There is normal left ventricular wall thickness. The left ventricle is markedly dilated. There are mulyiple thrombi noted in the apex of the left ventricle- the largest measuring 2.0 cm x 2.8 cm. The ejection fraction is estimated to be 10-15%. There is severe global hypokinesis of the left ventricle. Diastolic parameters suggest a pseudonormalization pattern, consistent with probable elevated filling pressures. Right Ventricle: The right ventricle is normal size. There is a pacemaker lead in the right ventricle. Right ventricular systolic function is moderately reduced. Atria: The left atrium is severely dilated. The right atrium is moderately dilated. There is no Doppler evidence for an atrial septal defect. Mitral Valve: The mitral valve is normal in structure and function. There is mild mitral regurgitation. Aortic Valve: The aortic valve is trileaflet. The aortic valve opens well. No aortic regurgitation is present. Tricuspid Valve: The tricuspid valve is normal in structure but is abnormal in function. There is mild to moderate tricuspid regurgitation. The right ventricular systolic pressure is estimated to be at least 46 mmHg based on an estimated right atrial pressure of 15 mm Hg. Pulmonic Valve: The pulmonic valve is normal in structure and function. There is trace pulmonic regurgitation. Great Vessels: The aortic root is normal size. The dimensions of the ascending aorta are normal. The pulmonary artery is normal size. The IVC is dilated (diameter is greater than 2.1 cm) and it collapses less than 50% with a sniff. This suggests a high right atrial pressure of 15 mm Hg. Pericardium/ Pleura There is no pericardial effusion. There is no pleural effusion. Labs 01/20/24 04:42 01/20/24 04:42 Labs: Laboratory Results - last 24 hr 01/19/24 01/19/24 01/19/24 14:25 21:18 22:30 WBC RBC Hgb Hct MCV MCH MCHC RDW Plt Count Neut % (Auto) Lymph % (Auto) [place] % (Auto) Eos % (Auto) Baso % (Auto) Neut # (Auto) Lymph # (Auto) [place] # (Auto) Eos # (Auto) Baso # (Auto) Sodium 137 Potassium 4.4 Chloride 105 Carbon Dioxide 24 BUN 51 H Creatinine 2.00 H Estimated GFR 39 L BUN/Creatinine Ratio 25.5 H Glucose 39 L* 63 L Calcium 8.3 L Magnesium 2.5 H Troponin I 0.064 H Nasal Screen MRSA (PCR) Not detected 01/20/24 04:42 WBC 8.5 RBC 6.02 H Hgb 18.2 H Hct 55.8 H MCV 92.8 MCH 30.3 MCHC 32.6 RDW 15.5 H Plt Count 195 Neut % (Auto) 65.6 Lymph % (Auto) 20.0 L [place] % (Auto) 11.1 Eos % (Auto) 1.8 L Baso % (Auto) 1.5 Neut # (Auto) 5600 Lymph # (Auto) 1700 [place] # (Auto) 900 Eos # (Auto) 200 Baso # (Auto) 100 Sodium 136 L Potassium 4.6 Chloride 104 Carbon Dioxide 23 BUN 52 H Creatinine 1.93 H Estimated GFR 41 L BUN/Creatinine Ratio 26.9 H Glucose 71 Calcium 8.4 Magnesium Troponin I 0.061 H Nasal Screen MRSA (PCR) [facility] Medical History Night terror IFG (impaired fasting glucose) Pulmonary emboli Methamphetamine use Poor eyesight Anxiety ADHD Shoulder pain Kidney stones Low testosterone Deep vein thrombosis Erectile dysfunction Tobacco dependence CHF (congestive heart failure) Surgical History Status post implantation of automatic cardioverter/defibrillator (AICD) Anesthesia History of cardiac defibrillator placement Pacemaker Family History Father Diabetes mellitus Mother Cancer Other Acute on chronic systolic (congestive) heart failure Social History household members: none Smoking Status: Current every day smoker alcohol intake: never Discharge Assessment & Plan Assessment and Plan Assessment: 1. Acute on chronic systolic heart failure, present on admission and improved. 2. TRAVIS, present on admission and active. 3. Hyperkalemia, present on admission and resolved. 4. Methamphetamine and cocaine abuse, present on admission and active. 5. AICD, present on admission and active. 6. Erythrocytosis, present on admission and active. Plan of Treatment: He is stable for discharge. He has returned to a better volume status. He is not a candidate for transplant with ongoing substance use. Discharge Plan Discharge Plan Patient Disposition: Home Provider Discharge Comment: Stable for discharge, we will increase diuretic from every other day to daily. Close follow up with Cardiology as scheduled for January 26. Discharge orders & Medications Prescriptions: New torsemide 20 mg tablet 20 mg PO DAILY Qty: 30 2RF Continued sacubitril-valsartan 24-26 mg tablet 1 tab PO BID carvedilol 12.5 mg tablet 12.5 mg PO BID Qty: 180 1RF empagliflozin 10 mg tablet 10 mg PO DAILY Qty: 90 1RF metoprolol tartrate 25 mg tablet 25 mg PO DAILY Qty: 90 1RF bupropion HCl [Wellbutrin XL] 150 mg tablet extended release 24 hr 150 mg PO QAM Qty: 90 3RF atorvastatin 40 mg tablet 40 mg PO DAILY Qty: 90 3RF sildenafil 100 mg tablet 100 mg PO DAILY PRN (Reason: sexual activity) Qty: 30 11RF Rx Instructions: administer 30 minutes to 4 hours before activity prazosin 1 mg capsule 1 mg PO ONCE PM Qty: 90 3RF Eliquis 5 mg tablet See Rx Instructions PO BID Qty: 60 11RF Rx Instructions: 10 mg orally twice a day x 7 days, then 5 mg orally twice a day doxepin 100 mg Capsule 100 mg PO BEDTIME Discontinued torsemide 20 mg tablet 20 mg PO .qod Follow up/Referrals: Nick Ling DO [Primary Care Provider] - Diet/Activity/Treatments Diet: Low-sodium Visit Report/Discharge Packet Instructions: DI for Heart Failure Stand Alone Forms: Patient Portal/API Discharge Data Primary Care Provider: Nick Ling Quality VTE Deep Vein Thrombosis/Pulmonary Embolism Present on Admission: No
--- NOTE | 2024-01-20 12:35 | CM.DANOTE ---
DCP: Case received, EMR reviewed and met with patient. Introduced self and role. Was able to obtain information to complete DCP assessment. Patient is a 53 year old male who admitted yesterday afternoon to the care of the hospitalist team. PCP: Dr. Ling. Payer: confirmed: [facility]/Medicaid. Patient came to the hospital via ambulance secondary to having increased dyspnea upon exertion, orthopnea, and general fatigue. Patient has history of routine methamphetamine use, and does also use cocaine, and is followed by cardiology. Patient has ejection fraction of 10%. Patient is followed by Dr. Chau in cardiology, who recommended admission for diuresis. Patient was admitted for acute on chronic systolic heart failure, TRAVIS. Notes indicate that patient has high risk for requiring longer admission, but history of leaving AMA. Met with patient in his room. He does have discharge orders, he was sitting up in his chair, alert and oriented. Confirmed that he is currently still established with Dr. Ling for primary care provider. Stated that he has someone to pick him up to go home. P: Patient is discharging home today. Jacqui Vasquez RN/Trimmer Climber Discharge Planning/Care Management CM Discharge Assessment Start: 01/20/24 12:33 Freq: Status: Active Protocol: Document 01/20/24 12:33 (Rec: 01/20/24 12:35 [email or web address]) Discharge Planning Assessment Assigned Salon Manager Jacqui Vasquez RN/Trimmer Climber Advance Directives? No History Provided By Patient,Medical Record Prior Living Arrangements RV Household Members none Type of transporation used prior to Drives own vehicle admit Independent with ADL's Yes Is patient alert and oriented? Yes Caregiver for Another No Discharge Plan Home Transportation Arrangement Friends Referrals Initiated None needed,Other Review Status In Process Next Review Type Continued Stay Review
== END 2024-01-20 13:05 | disposition home or self-care (01) ==
LOC: ED 12:49 → ICU 14:09 → AC 01-22 07:44 → ICU 01-22 07:44
PROVIDERS: Emergency Medicine; Admitting Provider Hospitalist; Emergency Provider Emergency Medicine; PCP Family Medicine; Referring Provider Emergency Medicine; Visit Provider Hospitalist
DX: I50.23 Acute on chronic systolic (congestive) heart failure (principal); N17.9 Acute kidney failure, unspecified; E87.5 Hyperkalemia; F15.10 Other stimulant abuse, uncomplicated; F14.10 Cocaine abuse, uncomplicated; D75.1 Secondary polycythemia; F17.210 Nicotine dependence, cigarettes, uncomplicated; Z95.810 Presence of automatic (implantable) cardiac defibrillator; Z79.01 Long term (current) use of anticoagulants
CPT/HCPCS: 36415; 71045; 71275; 80048; 80053; 82550; 82947; 82962; 83690; 83735; 83880; 84484; 85025; 87797; 93005; 96361; 96365; 96366; 96375; 96376; 99284; 99291; G0378; C8929; J1940; J2270; J2405; Q9957; Q9967